=== PATIENT | male | born 1960 | race Caucasian/White ===

== ENCOUNTER → 2018-03-21 | Outpatient (CLI) | payer MEDICARE, OTHER | END | disposition home or self-care (01) | LOC: LABWHC1 15:53 | PROVIDERS: ATTEND Psychiatry & Neurology Neurology | DX: G31.84 Mild cognitive impairment of uncertain or unknown etiology (principal) | CPT/HCPCS: 36415; 82607; 84443; 84481 ==

== ENCOUNTER 2018-06-01 15:59 | Inpatient (IN) | payer MEDICARE, MEDICAID ==
--- NOTE | 2018-06-01 16:26 | ED ---
General Adult HPI - General Chief complaint: Psychiatric Symptoms Stated complaint: mental health Time Seen by Provider: 06/01/18 16:13 Source: patient, RN notes reviewed Mode of arrival: ambulatory Limitations: no limitations - History of Present Illness Initial comments: Chief complaint history of present illness this is a 58-year-old male sent here to emergency room for evaluation by his counselor. The patient has been having suicidal thoughts. Denies any specific plan. Patient denies ever tried suicide in the past. The patient reports he is depressed because he has nothing juice at home watching TV denies having any hobbies. Denies drugs. - Related Data Home Medications Medication Instructions Recorded Confirmed DULoxetine HCL [Cymbalta] 60 mg PO DAILY@1000 09/22/15 06/01/18 Ibuprofen [Motrin] 200 - 400 mg PO Q6HR PRN 09/22/15 06/01/18 Simvastatin [Zocor] 40 mg PO PC-SUPPER 09/22/15 06/01/18 cloZAPine [Clozaril] 25 mg PO HS 09/22/15 06/01/18 cloZAPine [Clozaril] 200 mg PO HS 09/22/15 06/01/18 Gabapentin [Neurontin] 600 mg PO TID 06/01/18 06/01/18 HYDROcodone/APAP 5-325MG [[place] 1 tab PO Q6HR PRN 06/01/18 06/01/18 5-325] clonazePAM [KlonoPIN] 1 mg PO BID PRN 06/01/18 06/01/18 Previous Rx's Medication Instructions Recorded metFORMIN HCL [Glucophage] 500 mg PO BID-W/MEALS 15 Days tab 12/02/14 Allergies Allergy/AdvReac Type Severity Reaction Status Date / Time No Known Allergies Allergy Verified 06/01/18 17:10 Review of Systems ROS Statement: Those systems with pertinent positive or pertinent negative responses have been documented in the HPI. Review of systems. Patient denies any headache no visual acuity changes. Denies chest pain palpitations shortness of breath no GI/ problems denies being dizzy. Denies any change in appetite. Psychologically the patient reports depressed and having suicidal thoughts but no specific plan. Patient is under medication by his psychiatrist. The patient's past medical problems significant GERD, hyperlipidemia, non- insulin diabetes mellitus and an old chart a diagnosis of schizophrenia. The patient's surgeries include tonsillectomy. Family history father had prostate cancer. Patient denies ALLERGIES. He smokes and is decreasing the number cigarettes he is smoking monthly. Takes alcohol rarely socially. Denies alcohol abuse. Denies any drug abuse. ROS Other: All systems not noted in ROS Statement are negative. Past Medical History Past Medical History: GERD/Reflux, Hyperlipidemia History of Any Multi-Drug Resistant Organisms: None Reported Past Surgical History: Tonsillectomy Past Anesthesia/Blood Transfusion Reactions: No Reported Reaction Past Psychological History: Anxiety, Depression, Panic Disorder, Schizoaffective Disorder, Schizophrenia Smoking Status: Current every day smoker Past Alcohol Use History: Occasional Past Drug Use History: None Reported - Past Family History Mother Family Medical History: Hypertension Father Family Medical History: Cancer Additional Family Medical History / Comment(s): PROSTATE CA, HEART VALVE REPLACEMENT General Exam - General Exam Comments Initial Comments: General: The patient is awake and alert, in no distress, and does not appear acutely ill. Sent here for evaluation because of thoughts of suicide and increased depression of late. The patient's vital signs shows temperature 98.7 pulse 104 respiratory rate 18 pulse ox 97% room air blood pressure 126/84 Eye: Pupils are equal, round and reactive to light, extra-ocular movements are intact ; there is normal conjunctiva bilaterally. No signs of icterus. Ears, nose, mouth and throat: There are moist mucous membranes and no oral lesions. Neck: The neck is supple, there is no tenderness, no anterior cervical lymphadenopathy , thyroid not enlarged. Cardiovascular: There is a regular rate and rhythm. No murmur, rub or gallop is appreciated. Respiratory: Lungs are clear to auscultation, respirations are non-labored, breath sounds are equal. No wheezes, stridor, rales, or rhonchi. Gastrointestinal: Soft, non-distended, non-tender abdomen without masses or organomegaly noted. There is no rebound or guarding present. No CVA tenderness. Bowel sounds are unremarkable. Back: There is no tenderness to palpation in the midline. There is no obvious deformity. No rashes noted. Musculoskeletal: Normal ROM, no tenderness, There is no pedal edema. There is no calf tenderness or swelling. Sensation intact. Pulses equal bilaterally 2+. Neurological: CN II-XII intact, There are no obvious motor or sensory deficits. Coordination appears grossly intact. Speech is normal. No focal or lateralizing findings. Patient reports on occasion he stumbles. Denies headache or any other palpitations. Skin: Skin is warm and dry and no rashes or lesions are noted. Psychiatric: Cooperative, states she's having thoughts of suicide, complains of being depressed. Past history of schizophrenia. Is on medications. Sent here by his counselor for evaluation. Limitations: no limitations Course Vital Signs 06/01/18 16:06 Temperature 98.7 F Pulse Rate 104 H Respiratory 18 Rate Blood Pressure 126/84 O2 Sat by Pulse 97 Oximetry Medical Decision Making - Medical Decision Making Medical decision making; this is a 58-year-old male sent emergency room for evaluation by his counselor for thoughts of suicide and depression. The patient's urine drug triage positive for opiates. She denies taking any opiates. Patient was evaluated by the psychiatric nurse and the patient be admitted to the psychiatric floor for further evaluation and management with a diagnosis of schizoaffective disorder. - Lab Data Lab Results 06/01/18 Range/Units 16:30 Urine Opiates Screen Detected H (NotDetected) Ur Oxycodone Screen Not Detected (NotDetected) Urine Methadone Screen Not Detected (NotDetected) Ur Propoxyphene Screen Not Detected (NotDetected) Ur Barbiturates Screen Not Detected (NotDetected) U Tricyclic Antidepress Not Detected (NotDetected) Ur Phencyclidine Scrn Not Detected (NotDetected) Ur Amphetamines Screen Not Detected (NotDetected) U Methamphetamines Scrn Not Detected (NotDetected) U Benzodiazepines Scrn Not Detected (NotDetected) Urine Cocaine Screen Not Detected (NotDetected) U Marijuana (THC) Screen Not Detected (NotDetected) Disposition Clinical Impression: Schizoaffective disorder Disposition: TRANSFER TO PSYCH HOSP/UNIT Condition: Fair Is patient prescribed a controlled substance at d/c from ED?: No
[2018-06-01 17:18] LABS: Amphetamine Screen,Urine Not Detected (NotDetected); Barbiturate Screen,Urine Not Detected (NotDetected); Benzodiazepines Screen,Urine Not Detected (NotDetected); Cocaine Screen,Urine Not Detected (NotDetected); Methadone Screen, Urine Not Detected (NotDetected); Opiate Screen,Urine Detected (NotDetected); Oxycodone Screen, Urine Not Detected (NotDetected); Phencyclidine Screen,Urine Not Detected (NotDetected); Tricyclic Antidepressant,Urine Not Detected (NotDetected); Urn Cannabinoid Scrn Not Detected (NotDetected)
[2018-06-01] MEDS ORDERED: MAG HYDROX/AL HYDROX/SIMETH 30 ML CUP PO PRN (18:28)
[2018-06-01] MEDS ORDERED: ACETAMINOPHEN TAB 325 MG TAB PO PRN (18:28)
[2018-06-01] MEDS ORDERED: MAGNESIUM HYDROXIDE 2,400 MG/10 ML CUP PO PRN (18:28)
[2018-06-01] MEDS ORDERED: HYDROcodone/APAP 5-325MG 1 EACH TAB PO PRN (18:32)
[2018-06-01] MEDS: metFORMIN 500 MG TAB PO SCH (19:14)
[2018-06-01] MEDS: ATORVASTATIN 20 MG TAB PO SCH (19:14)
[2018-06-01] MEDS: cloZAPine 25 MG TAB PO SCH (21:12)
[2018-06-01] MEDS: GABAPENTIN 300 MG CAP PO SCH (21:12)
[2018-06-01] MEDS: cloZAPine 100 MG TAB PO SCH (21:12)
[2018-06-02] MEDS: metFORMIN 500 MG TAB PO SCH ×2 (08:11→17:40)
[2018-06-02] MEDS: GABAPENTIN 300 MG CAP PO SCH ×3 (08:11→20:43)
[2018-06-02] MEDS: NICOTINE 7MG/24HR PATCH TRANSDERM SCH (08:11)
--- NOTE | 2018-06-02 08:22 | P.CONS ---
History of Present Illness - Reason for Consult Consult date: 06/02/18 Diabetes and medical management - Chief Complaint Suicidal thoughts - History of Present Illness This is a consultation on a 58-year-old white male essentially admitted for suicidal thoughts and ideations he has an underlying history of schizoaffective disorder but hasn't underlying history diabetes. He saw me 3 days ago for diabetic check and was fairly stable. However, he is fairly noncompliant doing his daily blood sugar control. He is seen in the mental health unit for medical management. Review of Systems Constitutional: Denies chills, Denies fever Eyes: denies blurred vision, denies pain Ears, nose, mouth and throat: Denies headache, Denies sore throat Cardiovascular: Denies chest pain, Denies shortness of breath Respiratory: Denies cough Gastrointestinal: Denies abdominal pain, Denies diarrhea, Denies nausea, Denies vomiting Musculoskeletal: Reports low back pain Integumentary: Denies pruritus, Denies rash Psychiatric: Reports suicidal ideation Endocrine: Denies fatigue, Denies weight change Past Medical History Past Medical History: GERD/Reflux, Hyperlipidemia History of Any Multi-Drug Resistant Organisms: None Reported Past Surgical History: Tonsillectomy Past Anesthesia/Blood Transfusion Reactions: No Reported Reaction Past Psychological History: Anxiety, Depression, Panic Disorder, Schizoaffective Disorder, Schizophrenia Smoking Status: Current every day smoker Past Alcohol Use History: Occasional Past Drug Use History: None Reported - Past Family History Mother Family Medical History: Hypertension Father Family Medical History: Cancer Additional Family Medical History / Comment(s): PROSTATE CA, HEART VALVE REPLACEMENT Medications and Allergies Home Medications Medication Instructions Recorded Confirmed Type metFORMIN HCL [Glucophage] 500 mg PO BID-W/MEALS 15 Days tab 12/02/14 06/01/18 Rx DULoxetine HCL [Cymbalta] 60 mg PO DAILY@1000 09/22/15 06/01/18 History Ibuprofen [Motrin] 200 - 400 mg PO Q6HR PRN 09/22/15 06/01/18 History Simvastatin [Zocor] 40 mg PO PC-SUPPER 09/22/15 06/01/18 History cloZAPine [Clozaril] 25 mg PO HS 09/22/15 06/01/18 History cloZAPine [Clozaril] 200 mg PO HS 09/22/15 06/01/18 History Gabapentin [Neurontin] 600 mg PO TID 06/01/18 06/01/18 History HYDROcodone/APAP 5-325MG [[place] 1 tab PO Q6HR PRN 06/01/18 06/01/18 History 5-325] clonazePAM [KlonoPIN] 1 mg PO BID PRN 06/01/18 06/01/18 History Allergies Allergy/AdvReac Type Severity Reaction Status Date / Time No Known Allergies Allergy Verified 06/01/18 17:10 Physical Exam Vitals: Vital Signs Temp Pulse Pulse Resp BP BP Pulse Ox 06/02/18 06:50 97.8 F 97 18 125/76 06/01/18 19:05 97.4 F L 103 H 16 127/78 98 06/01/18 18:16 97.7 F 99 19 118/78 97 06/01/18 16:06 98.7 F 104 H 18 126/84 97 Intake and Output 06/01/18 06/02/18 06/02/18 22:59 06:59 14:59 Other: Weight 96.6 kg - Constitutional General appearance: no acute distress - EENT Eyes: EOMI - Neck Neck: no lymphadenopathy - Respiratory Respiratory: bilateral: CTA - Cardiovascular Rhythm: regular Heart sounds: normal: S1, S2 Abnormal Heart Sounds: no S3 Gallop - Gastrointestinal General gastrointestinal: soft, no tenderness - Neurologic Neurologic: CNII-XII intact - Psychiatric Psychiatric: A&O x's 3, intact judgment & insight Results Labs: Abnormal Lab Results - Last 24 Hours (Table) 06/01/18 Range/Units 16:30 Urine Opiates Screen Detected H (NotDetected) Assessment and Plan (1) Schizoaffective disorder Current Visit: Yes Status: Acute Code(s): F25.9 - SCHIZOAFFECTIVE DISORDER, UNSPECIFIED SNOMED Code(s): 81480401 (2) Diabetes Current Visit: Yes Status: Acute Code(s): E11.9 - TYPE 2 DIABETES MELLITUS WITHOUT COMPLICATIONS SNOMED Code(s): 41576799 Plan: Reconcile medications. The patient has fairly normal blood sugar control. Check blood sugar before meals. We'll continue follow from perspective.
[2018-06-02 09:32] LABS: Basophils % (A) 0 %; Eosinophils % (A) 0 %; HCT 45.2 % (39.0-53.0); HGB 14.5 gm/dL (13.0-17.5); Lymphocytes # (A) 2.4 k/uL (1.0-4.8); Lymphocytes % (A) 24 %; MCH 28.1 pg (25.0-35.0); MCHC 32.1 g/dL (31.0-37.0); MCV 87.7 fL (80.0-100.0); Mean Platelet Volume 8.9; Monocytes # (A) 0.7 k/uL (0-1.0); Monocytes % (A) 7 %; Neutrophils # (A) 6.6 k/uL (1.3-7.7); Neutrophils % (A) 66 %; Platelet Count 173 k/uL (150-450); RBC 5.16 m/uL (4.30-5.90); RDW 13.8 % (11.5-15.5); WBC 9.9 k/uL (3.8-10.6)
[2018-06-02 09:35] LABS: ALT 36 U/L (21-72); AST 18 U/L (17-59); Albumin 4.1 g/dL (3.5-5.0); Alkaline Phosphatase 113 U/L (38-126); Anion Gap 12 mmol/L; Bilirubin, Delta 0.2 mg/dL (0.0-0.2); Bilirubin,Unconjugated 0.4 mg/dL (0.0-1.1); Blood Urea Nitrogen 10 mg/dL (9-20); Calcium 9.6 mg/dL (8.4-10.2); Carbon Dioxide 26 mmol/L (22-30); Chloride 103 mmol/L (98-107); Cholesterol 161 mg/dL (<200); Glucose 219 mg/dL (74-99); HDL Cholesterol 47 mg/dL (40-60); LDL Cholesterol,Calculated 81 mg/dL (0-99); Potassium 4.7 mmol/L (3.5-5.1); Sodium 141 mmol/L (137-145); Total Bilirubin 0.6 mg/dL (0.2-1.3); Total Protein 6.6 g/dL (6.3-8.2); Triglycerides 164 mg/dL (<150)
[2018-06-02] MEDS ORDERED: DULoxetine HCL 60 MG CAPSULE.DR PO SCH (10:00)
--- NOTE | 2018-06-02 10:52 | P.HP ---
Psychiatric H&P - . History & Physical: Allergies Allergy/AdvReac Type Severity Reaction Status Date / Time No Known Allergies Allergy Verified 06/01/18 17:10 Vital Signs Temp 97.8 F 06/02/18 06:50 Pulse 97 06/02/18 06:50 Resp 18 06/02/18 06:50 BP 125/76 06/02/18 06:50 Pulse Ox 98 06/01/18 19:05 Intake & Output 06/01/18 06/02/18 06/02/18 18:59 06:59 18:59 Weight 99.79 kg 96.6 kg Laboratory Last Values WBC 9.9 k/uL (3.8-10.6) 06/02/18 08:43 RBC 5.16 m/uL (4.30-5.90) 06/02/18 08:43 Hgb 14.5 gm/dL (13.0-17.5) 06/02/18 08:43 Hct 45.2 % (39.0-53.0) 06/02/18 08:43 MCV 87.7 fL (80.0-100.0) 06/02/18 08:43 MCH 28.1 pg (25.0-35.0) 06/02/18 08:43 MCHC 32.1 g/dL (31.0-37.0) 06/02/18 08:43 RDW 13.8 % (11.5-15.5) 06/02/18 08:43 Plt Count 173 k/uL (150-450) 06/02/18 08:43 Neutrophils % 66 % 06/02/18 08:43 Lymphocytes % 24 % 06/02/18 08:43 Monocytes % 7 % 06/02/18 08:43 Eosinophils % 0 % 06/02/18 08:43 Basophils % 0 % 06/02/18 08:43 Neutrophils # 6.6 k/uL (1.3-7.7) 06/02/18 08:43 Lymphocytes # 2.4 k/uL (1.0-4.8) 06/02/18 08:43 Monocytes # 0.7 k/uL (0-1.0) 06/02/18 08:43 Eosinophils # 0.0 k/uL (0-0.7) 06/02/18 08:43 Basophils # 0.0 k/uL (0-0.2) 06/02/18 08:43 Sodium 141 mmol/L (137-145) 06/02/18 08:43 Potassium 4.7 mmol/L (3.5-5.1) 06/02/18 08:43 Chloride 103 mmol/L (98-107) 06/02/18 08:43 Carbon Dioxide 26 mmol/L (22-30) 06/02/18 08:43 Anion Gap 12 mmol/L 06/02/18 08:43 BUN 10 mg/dL (9-20) 06/02/18 08:43 Creatinine 1.00 mg/dL (0.66-1.25) 06/02/18 08:43 Est GFR (CKD-EPI)AfAm >90 (>60 ml/min/1.73 sqM) 06/02/18 08:43 Est GFR (CKD-EPI)NonAf 84 (>60 ml/min/1.73 sqM) 06/02/18 08:43 Glucose 219 mg/dL (74-99) H 06/02/18 08:43 Calcium 9.6 mg/dL (8.4-10.2) 06/02/18 08:43 Total Bilirubin 0.6 mg/dL (0.2-1.3) 06/02/18 08:43 Conjugated Bilirubin 0.0 mg/dL (0.0-0.3) 06/02/18 08:43 Unconjugated Bilirubin 0.4 mg/dL (0.0-1.1) 06/02/18 08:43 Delta Bilirubin 0.2 mg/dL (0.0-0.2) 06/02/18 08:43 AST 18 U/L (17-59) 06/02/18 08:43 ALT 36 U/L (21-72) 06/02/18 08:43 Alkaline Phosphatase 113 U/L (38-126) 06/02/18 08:43 Total Protein 6.6 g/dL (6.3-8.2) 06/02/18 08:43 Albumin 4.1 g/dL (3.5-5.0) 06/02/18 08:43 Triglycerides 164 mg/dL (<150) H 06/02/18 08:43 Cholesterol 161 mg/dL (<200) 06/02/18 08:43 LDL Cholesterol, Calc 81 mg/dL (0-99) 06/02/18 08:43 HDL Cholesterol 47 mg/dL (40-60) 06/02/18 08:43 TSH 0.778 mIU/L (0.465-4.680) 06/02/18 08:43 Urine Opiates Screen Detected (NotDetected) H 06/01/18 16:30 Ur Oxycodone Screen Not Detected (NotDetected) 06/01/18 16:30 Urine Methadone Screen Not Detected (NotDetected) 06/01/18 16:30 Ur Propoxyphene Screen Not Detected (NotDetected) 06/01/18 16:30 Ur Barbiturates Screen Not Detected (NotDetected) 06/01/18 16:30 U Tricyclic Antidepress Not Detected (NotDetected) 06/01/18 16:30 Ur Phencyclidine Scrn Not Detected (NotDetected) 06/01/18 16:30 Ur Amphetamines Screen Not Detected (NotDetected) 06/01/18 16:30 U Methamphetamines Scrn Not Detected (NotDetected) 06/01/18 16:30 U Benzodiazepines Scrn Not Detected (NotDetected) 06/01/18 16:30 Urine Cocaine Screen Not Detected (NotDetected) 06/01/18 16:30 U Marijuana (THC) Screen Not Detected (NotDetected) 06/01/18 16:30 06/02/18 10:43 IDENTIFYING DATA: This patient is a 58-year-old single male who was admitted to the mental health unit through the emergency room for suicidal ideation. HPI: The patient was sent to the hospital from his outpatient psychiatrist's office. The patient had met with his individual therapist and psychiatrist and had indicated he was having acute suicidal ideation. Specifically he stated he was going to stab himself in the neck or cut his wrists. The patient has a known history of schizoaffective disorder and does have a history of depressive episodes. The patient identifies no clear precipitant for the suicidal ideation. He indicates he's been compliant with the psychotropic medication which has been Clozaril Klonopin Cymbalta and Neurontin. He reports that appetite sleep and energy have been stable. He is endorsing no tearfulness. He just states suddenly he was having suicidal thoughts. He indicates feeling some anxiety about going out to dinner with family which was scheduled for today. This is a weekly activity however. He is reporting no auditory or visual hallucinations. He indicates having some paranoid thoughts at times but they seem to be consistent with his baseline. He reports no homicidal ideation. There is no clear history of hypomanic or manic episodes that he provides. With his permission I was able to speak with his outpatient psychiatrist Dr. Boyce. It was determined that the patient may benefit from titrating the Cymbalta to 90 mg. PAST PSYCHIATRIC HISTORY: This would be approximately the patient's ninth psychiatric admission his last admission on this mental health unit was in 2014. He has no history of suicide attempts. In the outpatient setting he is treated with Clozaril 225 mg at bedtime Cymbalta 60 mg daily Neurontin 600 mg 3 times daily Klonopin 1 mg up to twice daily as needed. In the past he has been treated with Paxil Zoloft Zyprexa Abilify doxepin and Effexor. The patient is somewhat hesitant to have us change his psychiatric medication but is amenable to a dose titration. He has been working with Dr. Boyce for 6-7 years and his therapist Cornelius for approximately 2 years. He indicates seen his psychiatrist monthly and his therapist every 2 weeks. PMH: History of hyperlipidemia diabetes chronic pain possibly hypertension, he is treated with Zocor metformin and Mena ALLERGIES: NO KNOWN DRUG ALLERGIES MEDICATIONS: As above CHEMICAL DEPENDENCY HISTORY: He reports using alcohol only when he goes out for dinner with family and he will have 2 drinks, no use of marijuana or illicit drugs he is never been placed in residential treatment for chemical dependency reasons. FAMILY PSYCHIATRIC HISTORY: No family psychiatric history reported no suicides in the family FAMILY CHEMICAL DEPENDENCY HISTORY: He indicates his mother has been a daily drinker, his father has been abusing alcohol on the weekends, and his sister has a history of abusing opiates SOCIAL HISTORY: The patient is 58 years old he single never been he has no children he resides with his parents. He graduated high school and earned some college credits no history of service. He was born and raised in the [place] area he was raised by both parents he has 2 sisters. He endorses no history of abuse and no legal history. MENTAL STATUS EXAM: The patient is an overweight male appearing his stated age. He is dressed in his own clothing he has a disheveled appearance. He demonstrates mild psychomotor slowing affect is bland. He endorses a recent depressed mood with suicidal ideation but states those are getting better already. He indicates having some anxiety being here on the mental health unit and being around other people. He reports no homicidal ideation intent or plan. He reports no auditory or visual hallucinations. In terms of specific delusions he states he will have paranoid thoughts at times but that seems to be a chronic finding. He demonstrates no tangential thinking loose associations or flight of ideas. Intellectually he appears to be in the below average range. He demonstrates no verbal or physical aggressiveness he demonstrates no involuntary repetitive movements. He is oriented to person place and date. He is able to spell world backwards. STRENGTHS/WEAKNESSES: Strengths: Housing family support willingness to receive treatment voluntarily weaknesses: Coping skills INTELLECTUAL FUNCTIONING: Below average IMPRESSIONS: [] 1. Schizoaffective disorder depressed type II. Diabetes hyperlipidemia chronic pain rule out hypertension PLAN: The patient has been admitted to the mental health unit voluntarily for further evaluation and treatment. We reviewed his presenting symptoms and treatment options. The patient is an impaired historian overall and seems fairly ambivalent about medication management other than expressing concern about changing his medicines. After discussing his presentation and care with his outpatient psychiatrist we decided we would continue the Clozaril 225 mg at bedtime and would increase Cymbalta to 90 mg daily we will continue the Neurontin 600 mg 3 times daily and Klonopin 1 mg up to twice daily as needed. The patient has been seen by internal medicine for routine history and physical exam. Social work has met with the patient to complete a psychosocial assessment. We will involve family in treatment and discharge planning as he will allow. He is encouraged to fully participate in the milieu.
[2018-06-02] MEDS: ATORVASTATIN 20 MG TAB PO SCH (17:40)
[2018-06-02 18:07] LABS: Hemoglobin A1C 6.4 % (4.0-6.0)
[2018-06-02] MEDS: cloZAPine 25 MG TAB PO SCH (20:42)
[2018-06-02] MEDS: cloZAPine 100 MG TAB PO SCH (20:43)
[2018-06-03] MEDS: DULoxetine HCL 30 MG CAPSULE.DR PO SCH (08:41)
[2018-06-03] MEDS: NICOTINE 7MG/24HR PATCH TRANSDERM SCH (08:41)
[2018-06-03] MEDS: metFORMIN 500 MG TAB PO SCH ×2 (08:41→17:49)
[2018-06-03] MEDS: GABAPENTIN 300 MG CAP PO SCH ×3 (08:42→20:51)
--- NOTE | 2018-06-03 12:26 | P.PN ---
Progress Note - Text Progress Note Date: 06/03/18 IDENTIFYING DATA: This patient is a 58-year-old single male who was admitted to the mental health unit through the emergency room for suicidal ideation. Interval history: Chart reviewed, discussed with nursing staff and interviewed patient in my office as I come from his room where he was lying down. General appearance is casual with a flat affect. Speech language is slow and hesitant soft. Attitude and behaviors cooperative withdrawn at times and indifferent. Mood is depressed to 6 out of 10 anxiety 7 out of 10. Affect is flat and blunted constricted. Orientation is to person place and time and situation. Thought content is within normal. Risk factor he still has suicidal ideation but no active plan. Perceptions are within normal no auditory or visual hallucinations stated at this time. Thought process is concrete. Concentration tension is within normal. Recent remote memory within normal. Intelligence is below average. Judgment and insight are both considered fair in nature. We'll continue his medications and 15 minute checks for work and milieu therapeutic environment. We did discuss that team meeting on Tuesday will decide about him returning home.
[2018-06-03] MEDS: ATORVASTATIN 20 MG TAB PO SCH (17:49)
[2018-06-03] MEDS: clonazePAM 1 MG TAB PO PRN (18:37)
[2018-06-03] MEDS: cloZAPine 100 MG TAB PO SCH (20:51)
[2018-06-03] MEDS: cloZAPine 25 MG TAB PO SCH (20:52)
[2018-06-04] MEDS: GABAPENTIN 300 MG CAP PO SCH ×3 (08:07→21:31)
[2018-06-04] MEDS: metFORMIN 500 MG TAB PO SCH ×2 (08:07→17:11)
[2018-06-04] MEDS: NICOTINE 7MG/24HR PATCH TRANSDERM SCH (08:07)
[2018-06-04] MEDS: DULoxetine HCL 30 MG CAPSULE.DR PO SCH (08:07)
--- NOTE | 2018-06-04 12:51 | P.PN ---
Progress Note - Text Progress Note Date: 06/04/18 DENTIFYING DATA: This patient is a 58-year-old single male who was admitted to the mental health unit through the emergency room for suicidal ideation. Interval history: Chart reviewed, discussed with nursing staff and interviewed patient. Mental status examination reveals a casually dressed 58-year-old male who appears older than stated age. Speech language as slow monotone and soft in nature. Attitude and behavior is cooperative. Mood is less depressed and less anxious. His affect is flat. Orientation to time person place and situation are well within normal. Thought content within normal limits risk factors denies suicidal or homicidal ideation. Perceptions within normal. Thought process is goal oriented. Concentration and tension within normal. Recent memory within normal remote memory within normal his intelligence is below average. His judgment and insight are good. We'll continue his medications and 15 minute checks for work and milieu therapeutic environment. We did discuss that team meeting on Tuesday will decide about him returning home. No adjustments in medications were made today.
[2018-06-04] MEDS: ATORVASTATIN 20 MG TAB PO SCH (17:11)
[2018-06-04 21:31] VITALS: RESP 16
[2018-06-04] MEDS: cloZAPine 25 MG TAB PO SCH (21:31)
[2018-06-04] MEDS: cloZAPine 100 MG TAB PO SCH (21:31)
[2018-06-05 06:29] LABS: Clozapine (Clozaril) 557 ng/mL (200-700); Norclozapine 297 ng/mL (200-700)
[2018-06-05 06:37] VITALS: BP 129/73; PULSE 92; TEMP 98.4
[2018-06-05] MEDS: metFORMIN 500 MG TAB PO SCH (09:09)
[2018-06-05] MEDS: DULoxetine HCL 30 MG CAPSULE.DR PO SCH (09:09)
[2018-06-05] MEDS: GABAPENTIN 300 MG CAP PO SCH (09:09)
[2018-06-05] MEDS: NICOTINE 7MG/24HR PATCH TRANSDERM SCH (09:10)
--- NOTE | 2018-06-05 11:09 | P.DS ---
Providers Date of admission: 06/01/18 17:41 Expected date of discharge: 06/05/18 Attending physician: J Carlos Moss Consults: 06/01/18 18:28 Consult Physician Routine Consulting Provider: Jeff Moon Consult Reason/Comments: H & P and medical care Do you want consulting provider notified?: Yes Primary care physician: Jeff Moon - Discharge Diagnosis(es) (1) Schizoaffective disorder Current Visit: Yes Status: Acute Priority: High Hospital Course: Brief summary of admission note: This patient is a 58-year-old single male who was admitted to the mental health unit through the emergency room for suicidal ideation. The patient was sent to the hospital from his outpatient psychiatrist's office after the patient made statements that he was going to cut himself at his wrists or stab himself in the neck. The patient is known to have a diagnosis of schizoaffective disorder with history of depressive episodes. For full details please refer to my psychiatric evaluation dated . Summary of hospital course: The patient was admitted to the mental health unit voluntarily. We reviewed his presenting symptoms and treatment options. We continued his Clozaril as written as well as his Klonopin. after having a phone conversation with Dr. Boyce the patient's outpatient psychiatrist we decided to titrate the Cymbalta to 90 mg daily. Soon after the patient was admitted to the mental health unit he indicated he was no longer having suicidal ideation. He felt safe in the milieu. He indicates that his family has visited over the weekend and that went well. Staff report that the patient' s been cooperative and has demonstrated no inappropriate behavior. The patient was seen by internal medicine for routine history and physical exam. Mental status exam: The patient is an alert male appearing his stated age. He is pleasant and cooperative. He reports his mood is good he denies having any suicidal or homicidal ideation intent or plan. Affect is appropriately expressive. He is reporting no auditory or visual hallucinations he is endorsing no current specific delusions. As he seated in the chair he demonstrates no obvious evidence of psychosis. Thought process is linear he demonstrates no tangential thinking loose associations or flight of ideas. He is easily directed in the session. He demonstrates no verbal or physical aggressiveness he demonstrates no involuntary repetitive movements. He is oriented to person place and date. He spontaneously describes future oriented thinking and we discussed coping skill strategies he can employ back home. Impressions 1. Schizoaffective disorder depressed type II. Diabetes, hyperlipidemia, chronic pain, rule out hypertension Plan: The patient will be discharged from the mental health unit today to return home with his parents. He will continue on Clozaril 225 mg at bedtime, Klonopin 1 mg twice daily, Neurontin 600 mg 3 times daily and the Cymbalta is 90 mg daily. He will follow up with Dr. Boyce and [facility] for outpatient mental health services. log pond worker will conduct a support meeting involving his parents prior to discharge. He will follow up with his primary care physician as needed. At this time there is no imminent safety risk he is appropriate for transition back to outpatient care. He is instructed to return to the hospital for any acute safety concerns. Patient Condition at Discharge: Stable Plan - Discharge Summary New Discharge Prescriptions: New DULoxetine HCL [Cymbalta] 90 mg PO DAILY #90 capsule. Nicotine 7Mg/24Hr Patch [Habitrol] 1 patch TRANSDERM DAILY #12 patch Continue metFORMIN HCL [Glucophage] 500 mg PO BID-W/MEALS 15 Days tab Simvastatin [Zocor] 40 mg PO PC-SUPPER cloZAPine [Clozaril] 25 mg PO HS cloZAPine [Clozaril] 200 mg PO HS Ibuprofen [Motrin] 200 - 400 mg PO Q6HR PRN PRN Reason: Pain Gabapentin [Neurontin] 600 mg PO TID clonazePAM [KlonoPIN] 1 mg PO BID PRN PRN Reason: Anxiety HYDROcodone/APAP 5-325MG [[place] 5-325] 1 tab PO Q6HR PRN PRN Reason: Pain Discontinued DULoxetine HCL [Cymbalta] 60 mg PO DAILY@1000 Discharge Medication List metFORMIN HCL [Glucophage] 500 mg PO BID-W/MEALS 15 Days tab 12/02/14 [Rx] Ibuprofen [Motrin] 200 - 400 mg PO Q6HR PRN 09/22/15 [History] Simvastatin [Zocor] 40 mg PO PC-SUPPER 09/22/15 [History] cloZAPine [Clozaril] 25 mg PO HS 09/22/15 [History] cloZAPine [Clozaril] 200 mg PO HS 09/22/15 [History] Gabapentin [Neurontin] 600 mg PO TID 06/01/18 [History] HYDROcodone/APAP 5-325MG [[place] 5-325] 1 tab PO Q6HR PRN 06/01/18 [History] clonazePAM [KlonoPIN] 1 mg PO BID PRN 06/01/18 [History] DULoxetine HCL [Cymbalta] 90 mg PO DAILY #90 capsule. 06/05/18 [Rx] Nicotine 7Mg/24Hr Patch [Habitrol] 1 patch TRANSDERM DAILY #12 patch 06/05/18 [ Rx] Follow up Appointment(s)/Referral(s): Jeff Moon MD [Primary Care Provider] - 1-2 days
[2018-06-05] MEDS: clonazePAM 1 MG TAB PO PRN (14:07)
== END 2018-06-05 14:50 | disposition home or self-care (01) | DRG 885 ==
LOC: EC 15:59 → 3MHU 17:41
PROVIDERS: ADMIT Psychiatry & Neurology Psychiatry; ATTEND Psychiatry & Neurology Psychiatry
DX: F25.1 Schizoaffective disorder, depressive type (principal); R45.851 Suicidal ideations; E11.9 Type 2 diabetes mellitus without complications; E78.5 Hyperlipidemia, unspecified; F17.200 Nicotine dependence, unspecified, uncomplicated; F41.0 Panic disorder [episodic paroxysmal anxiety]; G89.29 Other chronic pain; K21.9 Gastro-esophageal reflux disease without esophagitis; I10 Essential (primary) hypertension; Z91.19 Patient's noncompliance with other medical treatment and regimen; Z79.84 Long term (current) use of oral hypoglycemic drugs; Z79.899 Other long term (current) drug therapy; Z80.42 Family history of malignant neoplasm of prostate; Z82.49 Family history of ischemic heart disease and other diseases of the circulatory system
CPT/HCPCS: 80053; 80061; 80159; 80306; 82075; 82248; 83036; 84443; 85025; 99285

== ENCOUNTER 2019-09-10 16:03 | Inpatient (IN) | payer MEDICARE, MEDICAID ==
--- NOTE | 2019-09-10 18:08 | ED ---
General Adult HPI - General Chief complaint: Psychiatric Symptoms Stated complaint: mental/suicidal issues Time Seen by Provider: 09/10/19 16:32 Source: patient, RN notes reviewed Mode of arrival: ambulatory Limitations: no limitations - History of Present Illness Initial comments: 59-year-old male with a past medical history of depression, anxiety, panic disorder, schizoaffective disorder, schizophrenia presents to the emergency department for suicidal thoughts. Patient had seen his counselor today and that they wanted him to be evaluated the ER as they were concerned about suicidal thoughts. Patient states he does have suicidal thoughts today. States they have been on and off for years. Patient admits to plan of cutting his wrists. Patient states he is taking all his psychiatric medications. Patient has received inpatient management and treatment before. He denies any thoughts of harming anyone else or homicidal thoughts.Patient has no other complaints at this time including shortness of breath, chest pain, abdominal pain, nausea or vomiting, headache, or visual changes. - Related Data Home Medications Medication Instructions Recorded Confirmed Simvastatin [Zocor] 40 mg PO DAILY@1600 09/22/15 09/10/19 cloZAPine [Clozaril] 25 mg PO HS@2300 09/22/15 09/10/19 Gabapentin [Neurontin] 600 mg PO TID 06/01/18 09/10/19 HYDROcodone/APAP 5-325MG [[place] 1 tab PO Q6HR PRN 06/01/18 09/10/19 5-325] clonazePAM [KlonoPIN] 1 mg PO BID PRN 06/01/18 09/10/19 DULoxetine HCL [Cymbalta] 60 mg PO BID 09/10/19 09/10/19 cloZAPine [Clozaril] 200 mg PO HS@2300 09/10/19 09/10/19 Previous Rx's Medication Instructions Recorded metFORMIN HCL [Glucophage] 500 mg PO BID-W/MEALS 15 Days tab 12/02/14 Allergies Allergy/AdvReac Type Severity Reaction Status Date / Time No Known Allergies Allergy Verified 09/10/19 21:37 Review of Systems ROS Statement: Those systems with pertinent positive or pertinent negative responses have been documented in the HPI. ROS Other: All systems not noted in ROS Statement are negative. Past Medical History Past Medical History: GERD/Reflux, Hyperlipidemia History of Any Multi-Drug Resistant Organisms: None Reported Past Surgical History: Tonsillectomy Past Anesthesia/Blood Transfusion Reactions: No Reported Reaction Past Psychological History: Anxiety, Depression, Panic Disorder, Schizoaffective Disorder, Schizophrenia Smoking Status: Current every day smoker Past Alcohol Use History: Occasional Past Drug Use History: None Reported - Past Family History Mother Family Medical History: Hypertension Father Family Medical History: Cancer Additional Family Medical History / Comment(s): PROSTATE CA, HEART VALVE REPLACEMENT General Exam Limitations: no limitations General appearance: alert, in no apparent distress Head exam: Present: atraumatic, normocephalic, normal inspection Eye exam: Present: normal appearance, PERRL, EOMI. Absent: scleral icterus, conjunctival injection, periorbital swelling ENT exam: Present: normal exam, mucous membranes moist Neck exam: Present: normal inspection, full ROM. Absent: tenderness, meningismus, lymphadenopathy Respiratory exam: Present: normal lung sounds bilaterally. Absent: respiratory distress, wheezes, rales, rhonchi, stridor Cardiovascular Exam: Present: regular rate, normal rhythm, normal heart sounds. Absent: systolic murmur, diastolic murmur, rubs, gallop, clicks Psychiatric exam: Present: flat affect Course Vital Signs 09/10/19 09/10/19 16:06 19:03 Temperature 98.6 F 98.9 F Pulse Rate 105 H 98 Respiratory 18 18 Rate Blood Pressure 122/75 138/83 O2 Sat by Pulse 97 96 Oximetry Medical Decision Making - Medical Decision Making Patient evaluated by EPS, recommending inpatient treatment. Patient did sign himself in. Disposition Clinical Impression: Suicidal thoughts Disposition: TRANSFER TO PSYCH HOSP/UNIT Condition: Fair Is patient prescribed a controlled substance at d/c from ED?: No Time of Disposition: 00:39
[2019-09-10] MEDS ORDERED: ACETAMINOPHEN TAB 325 MG TAB PO PRN (19:46)
[2019-09-10] MEDS ORDERED: MAG HYDROX/AL HYDROX/SIMETH 30 ML CUP PO PRN (19:46)
[2019-09-10] MEDS ORDERED: MAGNESIUM HYDROXIDE 2,400 MG/10 ML CUP PO PRN (19:46)
[2019-09-10] MEDS ORDERED: ZIPRASIDONE 20 MG VIAL IM PRN (19:46)
[2019-09-10 19:48] LABS: Amphetamine Screen,Urine Not Detected (NotDetected); Barbiturate Screen,Urine Not Detected (NotDetected); Benzodiazepines Screen,Urine Not Detected (NotDetected); Cocaine Screen,Urine Not Detected (NotDetected); Methadone Screen, Urine Not Detected (NotDetected); Opiate Screen,Urine Detected (NotDetected); Oxycodone Screen, Urine Not Detected (NotDetected); Phencyclidine Screen,Urine Not Detected (NotDetected); Tricyclic Antidepressant,Urine Not Detected (NotDetected); Urn Cannabinoid Scrn Not Detected (NotDetected)
[2019-09-10] MEDS: cloZAPine 100 MG TAB PO SCH (20:51)
[2019-09-10] MEDS: GABAPENTIN 300 MG CAP PO SCH (20:51)
[2019-09-10] MEDS ORDERED: cloZAPine 25 MG TAB PO SCH (21:00)
[2019-09-11] MEDS: NICOTINE 7MG/24HR PATCH TRANSDERM SCH (08:21)
[2019-09-11] MEDS: DULoxetine HCL 30 MG CAPSULE.DR PO SCH (08:21)
[2019-09-11] MEDS: metFORMIN 500 MG TAB PO SCH ×2 (08:21→16:36)
[2019-09-11] MEDS: GABAPENTIN 300 MG CAP PO SCH ×3 (08:22→20:50)
[2019-09-11 08:23] LABS: Basophils % (A) 1 %; Eosinophils % (A) 0 %; HCT 42.7 % (39.0-53.0); HGB 13.7 gm/dL (13.0-17.5); Lymphocytes # (A) 2.6 k/uL (1.0-4.8); Lymphocytes % (A) 29 %; MCH 28.2 pg (25.0-35.0); MCHC 32.1 g/dL (31.0-37.0); MCV 87.7 fL (80.0-100.0); Mean Platelet Volume 9.1; Monocytes # (A) 0.6 k/uL (0-1.0); Monocytes % (A) 6 %; Neutrophils # (A) 5.6 k/uL (1.3-7.7); Neutrophils % (A) 63 %; Platelet Count 193 k/uL (150-450); RBC 4.86 m/uL (4.30-5.90); RDW 13.7 % (11.5-15.5); WBC 8.9 k/uL (3.8-10.6)
[2019-09-11 08:28] LABS: Glucose,Whole Blood 176 mg/dL (75-99)
[2019-09-11 08:38] LABS: ALT 25 U/L (4-49); AST 21 U/L (17-59); African American GFR (CKD) >90 (>60 ml/min/1.73 sqM); Albumin 3.8 g/dL (3.5-5.0); Alkaline Phosphatase 98 U/L (38-126); Anion Gap 7 mmol/L; Blood Urea Nitrogen 11 mg/dL (9-20); Calcium 9.1 mg/dL (8.4-10.2); Carbon Dioxide 27 mmol/L (22-30); Chloride 106 mmol/L (98-107); Cholesterol 182 mg/dL (<200); Glucose 120 mg/dL (74-99); HDL Cholesterol 55 mg/dL (40-60); LDL Cholesterol,Calculated 94 mg/dL (0-99); Non-African American GFR(CKD) >90 (>60 ml/min/1.73 sqM); Potassium 4.4 mmol/L (3.5-5.1); Sodium 140 mmol/L (137-145); Total Bilirubin 0.5 mg/dL (0.2-1.3); Total Protein 6.4 g/dL (6.3-8.2); Triglycerides 167 mg/dL (<150)
--- NOTE | 2019-09-11 11:56 | P.HP ---
Psychiatric H&P - . H&P Date: 09/11/19 History & Physical: Allergies Allergy/AdvReac Type Severity Reaction Status Date / Time No Known Allergies Allergy Verified 09/10/19 21:37 Vital Signs Temp 98.6 F 09/11/19 07:00 Pulse 82 09/11/19 07:00 Resp 17 09/11/19 07:00 BP 128/74 09/11/19 07:00 Pulse Ox 99 09/11/19 07:00 Intake & Output 09/10/19 09/11/19 09/11/19 18:59 06:59 18:59 Weight 99.79 kg 95.254 kg Laboratory Last Values WBC 8.9 k/uL (3.8-10.6) 09/11/19 07:49 RBC 4.86 m/uL (4.30-5.90) 09/11/19 07:49 Hgb 13.7 gm/dL (13.0-17.5) 09/11/19 07:49 Hct 42.7 % (39.0-53.0) 09/11/19 07:49 MCV 87.7 fL (80.0-100.0) 09/11/19 07:49 MCH 28.2 pg (25.0-35.0) 09/11/19 07:49 MCHC 32.1 g/dL (31.0-37.0) 09/11/19 07:49 RDW 13.7 % (11.5-15.5) 09/11/19 07:49 Plt Count 193 k/uL (150-450) 09/11/19 07:49 Neutrophils % 63 % 09/11/19 07:49 Lymphocytes % 29 % 09/11/19 07:49 Monocytes % 6 % 09/11/19 07:49 Eosinophils % 0 % 09/11/19 07:49 Basophils % 1 % 09/11/19 07:49 Neutrophils # 5.6 k/uL (1.3-7.7) 09/11/19 07:49 Lymphocytes # 2.6 k/uL (1.0-4.8) 09/11/19 07:49 Monocytes # 0.6 k/uL (0-1.0) 09/11/19 07:49 Eosinophils # 0.0 k/uL (0-0.7) 09/11/19 07:49 Basophils # 0.0 k/uL (0-0.2) 09/11/19 07:49 Sodium 140 mmol/L (137-145) 09/11/19 07:49 Potassium 4.4 mmol/L (3.5-5.1) 09/11/19 07:49 Chloride 106 mmol/L (98-107) 09/11/19 07:49 Carbon Dioxide 27 mmol/L (22-30) 09/11/19 07:49 Anion Gap 7 mmol/L 09/11/19 07:49 BUN 11 mg/dL (9-20) 09/11/19 07:49 Creatinine 0.78 mg/dL (0.66-1.25) 09/11/19 07:49 Est GFR (CKD-EPI)AfAm >90 (>60 ml/min/1.73 sqM) 09/11/19 07:49 Est GFR (CKD-EPI)NonAf >90 (>60 ml/min/1.73 sqM) 09/11/19 07:49 Glucose 120 mg/dL (74-99) H 09/11/19 07:49 POC Glucose (mg/dL) 176 mg/dL (75-99) H 09/11/19 08:25 POC Glu Maintenance Equipment Operator ID Xuan Chamberlain 09/11/19 08:25 Calcium 9.1 mg/dL (8.4-10.2) 09/11/19 07:49 Total Bilirubin 0.5 mg/dL (0.2-1.3) 09/11/19 07:49 AST 21 U/L (17-59) 09/11/19 07:49 ALT 25 U/L (4-49) 09/11/19 07:49 Alkaline Phosphatase 98 U/L (38-126) 09/11/19 07:49 Total Protein 6.4 g/dL (6.3-8.2) 09/11/19 07:49 Albumin 3.8 g/dL (3.5-5.0) 09/11/19 07:49 Triglycerides 167 mg/dL (<150) H 09/11/19 07:49 Cholesterol 182 mg/dL (<200) 09/11/19 07:49 LDL Cholesterol, Calc 94 mg/dL (0-99) 09/11/19 07:49 HDL Cholesterol 55 mg/dL (40-60) 09/11/19 07:49 TSH 0.888 mIU/L (0.465-4.680) 09/11/19 07:49 Urine Opiates Screen Detected (NotDetected) H 09/10/19 19:20 Ur Oxycodone Screen Not Detected (NotDetected) 09/10/19 19:20 Urine Methadone Screen Not Detected (NotDetected) 09/10/19 19:20 Ur Propoxyphene Screen Not Detected (NotDetected) 09/10/19 19:20 Ur Barbiturates Screen Not Detected (NotDetected) 09/10/19 19:20 U Tricyclic Antidepress Not Detected (NotDetected) 09/10/19 19:20 Ur Phencyclidine Scrn Not Detected (NotDetected) 09/10/19 19:20 Ur Amphetamines Screen Not Detected (NotDetected) 09/10/19 19:20 U Methamphetamines Scrn Not Detected (NotDetected) 09/10/19 19:20 U Benzodiazepines Scrn Not Detected (NotDetected) 09/10/19 19:20 Urine Cocaine Screen Not Detected (NotDetected) 09/10/19 19:20 U Marijuana (THC) Screen Not Detected (NotDetected) 09/10/19 19:20 09/11/19 10:39 IDENTIFYING DATA: Patient is a 59-year-old male with history of chronic schizoaffective disorder who currently lives with his mother and father in a house has no kids is single and collects SSI. HPI: Patient presented to the hospital yesterday with suicidal thoughts after seeing his counselor who recommended him coming into the ER for evaluation. Patient according to the ER has been dealing with suicidal thoughts for several years. Patient apparently reported a plan to cut his wrists and admitted to being compliant with his medications at home. Patient was seen on the unit today taking part in group and was directable and agreeable to speak to development writer in the office. Patient was tending to cooperate and was logical and concrete. He states that he's been having a "hard time" and had difficulties with his concentration at home. He states that he's been having suicidal thoughts which were fleeting and also dealing with depression. He states that his suicidal thoughts and been going on since the age of 14 and did not mention any new stressors or triggers. He states that he has been compliant with his medications. He also spoke about his neuropathy in his feet and claims that now he gets [place] and Neurontin for it. He claims that things at home are "the same" and spoke about his parents drinking on the weekend. He states that at th e moment she is continuing to have suicidal ideations however fleeting and denies any plan or intent. He states that his sleep is poor denies any guilt. Patient denies any homicidal ideations intent or plan. At this time patient denies any auditory or visual hallucinations. Patient denies any flight of ideas racing thoughts and increased in goal directed behavior. Patient admits to using regrets daily and alcohol occasionally and denies any other recreational drug use. PAST PSYCHIATRIC HISTORY: Patient states that he has a history of schizoaffective disorder. Patient is on Clozaril 225 mg daily at bedtime and Klonopin 1 mg twice a day Neurontin 600 mg 3 times a day and Cymbalta 90 mg daily. She and has had several psychiatric hospitalizations the past and his last hospitalization was in May 2018. She follows up with Dr. Boyce as an outpatient. PMH: GERD and hyperlipidemia ALLERGIES: as per EMR CHEMICAL DEPENDENCY HISTORY: as per HPI FAMILY PSYCHIATRIC/SUBSTANCE USE HISTORY: States that his grandmother has schizophrenia SOCIAL HISTORY: Patient was born and raised in [facility] and claims a completed high school and states that he went to [employer] for college however did not graduate. She denies any legal problems. He currently lives with his mother and father in a house has no kids is single and collects SSI. MENTAL STATUS EXAM: General Appearance: Patient appears to be stated age is tall, well-built, alert, directable, and attempts to cooperate. Patient appears to have poor hygiene and grooming. Wearing hospital gown. Behavior: Patient is seated without any agitated behavior. Attempts to cooperate. Speech: Patient's speech is fluent and nonpressured. Mood/Affect: Patient reports their mood is depressed, affect is congruent and constricted. Suicidality/Homicidality: Patient denies having any homicidal ideation intent or plan. Admits to fleeting thoughts of suicide however no intent or plan. Perceptions: Patient denies any visual hallucinations and denies any auditory hallucinations Though content/process: There is no evidence of any delusional thought content and thought process is linear and goal-directed. Tiff. Memory and concentration: AOX3, grossly intact for the purposes of this session. Can spell "WORLD" backwards Judgment and insight: poor STRENGTHS/WEAKNESSES: strength is that patient is resilient. Weakness is that patient has poor judgment INTELLECT: average IMPRESSIONS: Schizoaffective disorder unspecified Nicotine dependence PLAN: -Patient is admitted under voluntary status to MHU for stabilization of psychiatric symptoms and safety. Patient signed adult voluntary form and medication consent and is placed in patient's chart. -Medications : Will start patient on clozapine however changed to 25 mg daily +200 mg daily at bedtime for psychosis/mood stabilization. We'll continue Klonopin 1 mg twice a day when necessary for anxiety. Patient is also currently on Neurontin 600 mg 3 times a day for neuropathy. Continue with Cymbalta 90 mg daily for mood/anxiety/pain and can consider increasing this dose if needed. Added melatonin 5 mg daily at bedtime for sleep. -Geodon PRN for agitation/aggression -Patient was informed of the risks, benefits and side effects of the medication and patient verbally consented to taking the medications. Patient signed med consent form and was placed in chart. -Internal Medicine consult to perform medical evaluation and physical. -NRT - nicotine patch -SW on board for discharge planning. Encourage patient to participate in groups to work on coping skills. Likely discharge in 2-3 days. 09/11/19 11:49
[2019-09-11 12:51] LABS: Glucose,Whole Blood 126 mg/dL (75-99)
[2019-09-11] MEDS: cloZAPine 25 MG TAB PO SCH (13:23)
[2019-09-11] MEDS: clonazePAM 1 MG TAB PO PRN ×2 (13:24→22:21)
--- NOTE | 2019-09-11 15:48 | P.CONS ---
History of Present Illness - Chief Complaint Suicidal ideations - History of Present Illness This is a history of physical 59-year-old white male patient of mine who has an underlying history is scheduled for disorder anxiety depression and is admitted to the mental health unit secondary to suicidal thoughts. He has history of this over the years. He has been compliant with his medications and has received inpatient treatment in the past. He denies any homicidal thoughts. No physical complaints per se stated. He hasn't underlying history of DJD. Review of Systems Constitutional: Denies chills, Denies fever Eyes: denies blurred vision, denies pain Ears, nose, mouth and throat: Denies headache, Denies sore throat Cardiovascular: Denies chest pain, Denies shortness of breath Gastrointestinal: Denies abdominal pain, Denies diarrhea, Denies nausea, Denies vomiting Psychiatric: Reports as per HPI Endocrine: Denies fatigue, Denies weight change Past Medical History Past Medical History: GERD/Reflux, Hyperlipidemia History of Any Multi-Drug Resistant Organisms: None Reported Past Surgical History: Tonsillectomy Past Anesthesia/Blood Transfusion Reactions: No Reported Reaction Past Psychological History: Anxiety, Depression, Panic Disorder, Schizoaffective Disorder, Schizophrenia Smoking Status: Current every day smoker Past Alcohol Use History: Occasional Past Drug Use History: None Reported - Past Family History Mother Family Medical History: Hypertension Father Family Medical History: Cancer Additional Family Medical History / Comment(s): PROSTATE CA, HEART VALVE R EPLACEMENT Medications and Allergies Home Medications Medication Instructions Recorded Confirmed Type metFORMIN HCL [Glucophage] 500 mg PO BID-W/MEALS 15 Days tab 12/02/14 09/10/19 Rx Simvastatin [Zocor] 40 mg PO DAILY@1600 09/22/15 09/10/19 History cloZAPine [Clozaril] 25 mg PO HS@2300 09/22/15 09/10/19 History Gabapentin [Neurontin] 600 mg PO TID 06/01/18 09/10/19 History HYDROcodone/APAP 5-325MG [[place] 1 tab PO Q6HR PRN 06/01/18 09/10/19 History 5-325] clonazePAM [KlonoPIN] 1 mg PO BID PRN 06/01/18 09/10/19 History DULoxetine HCL [Cymbalta] 60 mg PO BID 09/10/19 09/10/19 History cloZAPine [Clozaril] 200 mg PO HS@2300 09/10/19 09/10/19 History Allergies Allergy/AdvReac Type Severity Reaction Status Date / Time No Known Allergies Allergy Verified 09/10/19 21:37 Physical Exam Vitals: Vital Signs Temp Pulse Pulse Resp BP BP Pulse Ox 09/11/19 07:00 98.6 F 82 17 128/74 99 09/10/19 23:06 98.8 F 94 16 127/69 98 09/10/19 19:03 98.9 F 98 18 138/83 96 09/10/19 16:06 98.6 F 105 H 18 122/75 97 Intake and Output 09/10/19 09/11/19 09/11/19 22:59 06:59 14:59 Other: Weight 99.79 kg 95.254 kg - Constitutional General appearance: no acute distress - Neck Neck: no lymphadenopathy - Respiratory Respiratory: bilateral: CTA - Cardiovascular Rhythm: regular Abnormal Heart Sounds: no S3 Gallop - Gastrointestinal General gastrointestinal: soft, no tenderness - Integumentary Integumentary: no cellulitis Results Labs: Abnormal Lab Results - Last 24 Hours (Table) 09/10/19 Range/Units 19:20 Urine Opiates Screen Detected H (NotDetected) Assessment and Plan (1) Suicidal thoughts Current Visit: Yes Status: Acute Code(s): R45.851 - SUICIDAL IDEATIONS SNOMED Code(s): 6295110 (2) Diabetes Current Visit: No Status: Acute Code(s): E11.9 - TYPE 2 DIABETES MELLITUS WITHOUT COMPLICATIONS SNOMED Code(s): 07384270 (3) Schizoaffective disorder Current Visit: No Status: Acute Priority: High Code(s): F25.9 - SCHIZOAFFECTIVE DISORDER, UNSPECIFIED SNOMED Code(s): 96065316 Plan: Placed on appropriate sliding scale as necessary. Accu-Chek to be ordered. Check CBC and CMP in a.m. The patient may restart hydrocodone as per psychiatric sanchez protocol Reconcile medications otherwise. See orders otherwise Time with Patient: Greater than 30
[2019-09-11 16:01] LABS: Hemoglobin A1C 6.5 % (4.0-6.0)
[2019-09-11] MEDS: ATORVASTATIN 20 MG TAB PO SCH (16:36)
[2019-09-11 17:45] LABS: Glucose,Whole Blood 123 mg/dL (75-99)
[2019-09-11 20:12] LABS: Glucose,Whole Blood 123 mg/dL (75-99)
[2019-09-11] MEDS: cloZAPine 100 MG TAB PO SCH (20:49)
[2019-09-11] MEDS: MELATONIN 5 MG TABLET PO SCH (20:49)
[2019-09-12 07:02] VITALS: RESP 16
[2019-09-12 08:02] LABS: Glucose,Whole Blood 136 mg/dL (75-99)
[2019-09-12] MEDS: DULoxetine HCL 30 MG CAPSULE.DR PO SCH (09:05)
[2019-09-12] MEDS: NICOTINE 7MG/24HR PATCH TRANSDERM SCH (09:05)
[2019-09-12] MEDS: metFORMIN 500 MG TAB PO SCH ×2 (09:05→16:43)
[2019-09-12] MEDS: cloZAPine 25 MG TAB PO SCH (09:05)
[2019-09-12] MEDS: GABAPENTIN 300 MG CAP PO SCH ×3 (09:06→21:18)
--- NOTE | 2019-09-12 11:21 | P.PN ---
Progress Note - Text Progress Note Date: 09/12/19 Interval History: Patient was seen wandering the hallways and was directable and agreeable to andrey flores with specification writer in the office. patient appeared to have a brighter affect today and states that his mood as been gradually improving. He states that "I needed to get out of the house" and claims that his depression has been getting better. He states that he is not focusing on suicidal thoughts any longer. He states that he is going to some of the groups and remains interested to go to the [employer] [facility] and interact with others on the unit. He states that he was able to sleep throughout the night. He states that he has a fair appetite. At this time patient denies any suicidal or homical ideations, intent or plan. Patient denies any auditory, visual hallucinations and denies any paranoia or delusions. Patient denies any side effects from the medications and has been compliant with meds. Mental Status Exam: General Appearance: Patient appears to be stated age is tall, well-built, alert, directable, and attempts to cooperate. Patient appears to have poor hygiene and grooming Behavior: Patient is seated without any agitated behavior. Attempts to cooperate. Speech: Patient's speech is fluent and nonpressured. Mood/Affect: Patient reports their mood is improving mildly, affect is congruent and constricted. Suicidality/Homicidality: Patient denies having any suicidal or homicidal ideation intent or plan. Perceptions: Patient denies any visual hallucinations and denies any auditory hallucinations Though content/process: There is no evidence of any delusional thought content and thought process is linear and goal-directed. [place].focused on discharge. Memory and concentration: AOX3, grossly intact for the purposes of this session. Judgment and insight: Limited, mildly improving. Assessment Schizoaffective disorder unspecified Nicotine dependence Plan: -Patient continues to meet criteria for inpatient psychiatric admission for symptom stabilization and safety. Patient has signed adult voluntary form and medication consent and was placed in patient's chart. -Medications: continue with clozapine 25 mg daily +200 mg daily at bedtime for psychosis/mood stabilization. Continue with Klonopin 1 mg 3 times a day when necessary for anxiety. Continue with Neurontin 600 mg 3 times a day for neuropathy. Continue with Cymbalta 90 mg daily for mood/anxiety/pain. Continue with melatonin 5 mg nightly for sleep. -When necessary Geodon for agitation/aggression. -NRT - nicotine patch -SW on board for discharge planning. Encouraged the patient to participate in milieu. Likely discharge back home tomorrow. We'll look into potential groups that patient can attend at [facility] as an outpatient.
[2019-09-12 12:49] LABS: Glucose,Whole Blood 131 mg/dL (75-99)
[2019-09-12 17:30] LABS: Glucose,Whole Blood 105 mg/dL (75-99)
[2019-09-12] MEDS: ATORVASTATIN 20 MG TAB PO SCH (19:57)
[2019-09-12] MEDS: MELATONIN 5 MG TABLET PO SCH (19:58)
[2019-09-12] MEDS: cloZAPine 100 MG TAB PO SCH (19:58)
[2019-09-12 20:16] LABS: Glucose,Whole Blood 154 mg/dL (75-99)
[2019-09-13 07:04] VITALS: BP 107/58; PULSE 84; TEMP 98.5
[2019-09-13 07:52] LABS: Glucose,Whole Blood 126 mg/dL (75-99)
[2019-09-13] MEDS: NICOTINE 7MG/24HR PATCH TRANSDERM SCH (08:16)
[2019-09-13] MEDS: cloZAPine 25 MG TAB PO SCH (08:16)
[2019-09-13] MEDS: DULoxetine HCL 30 MG CAPSULE.DR PO SCH (08:16)
[2019-09-13] MEDS: metFORMIN 500 MG TAB PO SCH (08:16)
[2019-09-13] MEDS: GABAPENTIN 300 MG CAP PO SCH (08:17)
--- NOTE | 2019-09-13 10:03 | P.DS ---
Providers Date of admission: 09/10/19 19:00 Expected date of discharge: 09/13/19 Attending physician: Catarino Prado MD Consults: 09/10/19 19:46 Consult Physician Routine Consulting Provider: Jeff Moon Consult Reason/Comments: H&P and medical Do you want consulting provider notified?: Yes Primary care physician: Jeff Moon - Discharge Diagnosis(es) (1) Nicotine dependence Current Visit: Yes Status: Acute Priority: Low (2) Schizoaffective disorder Current Visit: No Status: Acute Priority: High Hospital Course: Admission HPI: Patient is a 59-year-old male with history of chronic schizoaffective disorder who currently lives with his mother and father in a house has no kids is single and collects SSI. Patient presented to the hospital yesterday with suicidal thoughts after seeing his counselor who recommended him coming into the ER for evaluation. Patient according to the ER has been dealing with suicidal thoughts for several years. Patient apparently reported a plan to cut his wrists and admitted to being compliant with his medications at home. Patient was seen on the unit today taking part in group and was directable and agreeable to speak to bid writer in the office. Patient was tending to cooperate and was logical and concrete. He states that he's been having a "hard time" and had difficulties with his concentration at home. He states that he's been having suicidal thoughts which were fleeting and also dealing with depression. He states that his suicidal thoughts and been going on since the age of 14 and did not mention any new stressors or triggers. He states that he has been compliant with his medications. He also spoke about his neuropathy in his feet and claims that now he gets [place] and Neurontin for it. He claims that things at home are "the same" and spoke about his parents drinking on the weekend. He states that at the moment she is continuing to have suicidal ideations however fleeting and denies any plan or intent. He states that his sleep is poor denies any guilt. Patient denies any homicidal ideations intent or plan. At this time patient denies any auditory or visual hallucinations. Patient denies any flight of ideas racing thoughts and increased in goal directed behavior. Patient admits to using regrets daily and alcohol occasionally and denies any other recreational drug use. Hospital course: Upon admission to the unit patient was initially depressed and having suicidal thoughts. Patient was however directable and agreeable to commence treatment. Patient got along well with other patients on the unit and followed unit protocol. Patient was compliant with the medications and denied any side effects throughout hospital course. Patient was started on his home dose of clozapine 225 mg daily at bedtime for mood stabilization/psychosis, Klonopin 1 mg twice a day when necessary for anxiety, Neurontin 600 mg 3 times a day for neuropathy, Cymbalta 90 mg daily for mood/anxiety/pain, melatonin 5 mg nightly for sleep. Patient spoke of his stressors and engaged in therapy both group and individual. Patient was also seen by medical team for history and physical exam. Patient had a CBC with differential drawn on and WBCs were 8.9 and absolute neutrophil count was 5.6. Throughout the course of the hospitalization patient gradually improved with regards to mood, anxiety, psyc hosis, sleep and became future oriented with improved insight and judgment. On the day of discharge patient denied any suicidal or homicidal ideations intent or plan denied any auditory or visual hallucinations. Patient endorsed wanting to live for or his family and his friends. The patient denied any access to guns or weapons. Patient denied any paranoia and did not endorse any delusions. Patient does not have a significant history of substance abuse however was counseled on abstaining from all substances including alcohol and marijuana. Patient was also counseled on the medications and need for regular compliance and was encouraged to follow-up with their outpatient appointment for mental health and also for primary care. Prior to discharge a family meeting will be arranged by social security benefits interviewer to answer any questions and ensure safety upon discharge. Mental status exam: General Appearance: Patient appears to be tall, well-built, stated age is alert, pleasant, and cooperative. Patient is in no acute distress and has fair hygiene and grooming Behavior: Patient is calmly seated without any agitated behavior. Cooperative. Speech: Patient's speech is fluent and nonpressured. Mood/Affect: Patient reports their mood is "better", affect is congruent and euthymic. Suicidality/Homicidality: Patient denies having any suicidal or homicidal ideation intent or plan. Perceptions: Patient denies any auditory or visual hallucinations. Though content/process: There is no evidence of any delusional thought content and thought process is linear and goal-directed. [place]. Memory and concentration: AOX3, grossly intact for the purposes of this session. Can spell "WORLD" backwards correctly. Judgment and insight: Improved with guarded prognosis Impression: Schizoaffective disorder unspecified Nicotine dependence Plan: -Continue with discharge today as patient has improved and stabilized psychiatrically and is not currently an imminent threat to himself and/or others. -Continue medications: Clozapine 225 mg nightly for psychosis/mood stabilization, Klonopin 1 mg twice a day when necessary for anxiety, Neurontin 600 mg 3 times a day for neuropathy, Cymbalta 90 mg daily for mood/anxiety/pain, melatonin 5 mg nightly for sleep. -Patient was counseled on the need for medication compliance and appropriate follow-up at mental health and also primary care for medical issues. Patient verbalized understanding and agreed. -Social work to arrange for and conduct family meeting to ensure safety upon discharge and answer any questions/concerns. Social work also to arrange for patients follow up appointments with Dr. Boyce for psychiatric care along with follow up with primary care provider. Patient also follows up with his therapist rescue worker to give resources for outpatient groups in the community. -Patient to continue on with regular monitoring of WBCs and absolute neutrophil count as per protocol for clozapine treatment and will be monitored by his outpatient psychiatrist. -Patient counseled on abstaining from recreational drugs and marijuana and alcohol. Was informed/educated on the adverse effects on their physical and mental health. Patient verbally agreed and understood. -Patient was instructed to return to the hospital or seek immediate medical care if their psychiatric or medical symptoms do worsen or reoccur. Allergies Allergy/AdvReac Type Severity Reaction Status Date / Time No Known Allergies Allergy Verified 09/10/19 21:37 Laboratory Results WBC 8.9 k/uL (3.8-10.6) 09/11/19 07:49 RBC 4.86 m/uL (4.30-5.90) 09/11/19 07:49 Hgb 13.7 gm/dL (13.0-17.5) 09/11/19 07:49 Hct 42.7 % (39.0-53.0) 09/11/19 07:49 MCV 87.7 fL (80.0-100.0) 09/11/19 07:49 MCH 28.2 pg (25.0-35.0) 09/11/19 07:49 MCHC 32.1 g/dL (31.0-37.0) 09/11/19 07:49 RDW 13.7 % (11.5-15.5) 09/11/19 07:49 Plt Count 193 k/uL (150-450) 09/11/19 07:49 Neutrophils % 63 % 09/11/19 07:49 Lymphocytes % 29 % 09/11/19 07:49 Monocytes % 6 % 09/11/19 07:49 Eosinophils % 0 % 09/11/19 07:49 Basophils % 1 % 09/11/19 07:49 Neutrophils # 5.6 k/uL (1.3-7.7) 09/11/19 07:49 Lymphocytes # 2.6 k/uL (1.0-4.8) 09/11/19 07:49 Monocytes # 0.6 k/uL (0-1.0) 09/11/19 07:49 Eosinophils # 0.0 k/uL (0-0.7) 09/11/19 07:49 Basophils # 0.0 k/uL (0-0.2) 09/11/19 07:49 Sodium 140 mmol/L (137-145) 09/11/19 07:49 Potassium 4.4 mmol/L (3.5-5.1) 09/11/19 07:49 Chloride 106 mmol/L (98-107) 09/11/19 07:49 Carbon Dioxide 27 mmol/L (22-30) 09/11/19 07:49 Anion Gap 7 mmol/L 09/11/19 07:49 BUN 11 mg/dL (9-20) 09/11/19 07:49 Creatinine 0.78 mg/dL (0.66-1.25) 09/11/19 07:49 Est GFR (CKD-EPI)AfAm >90 (>60 ml/min/1.73 sqM) 09/11/19 07:49 Est GFR (CKD-EPI)NonAf >90 (>60 ml/min/1.73 sqM) 09/11/19 07:49 Glucose 120 mg/dL (74-99) H 09/11/19 07:49 POC Glucose (mg/dL) 126 mg/dL (75-99) H 09/13/19 07:51 POC Glu Family Services Specialist Mariah Thompson 09/13/19 07:[address] Glu mg/dL 140 09/11/19 07:49 Hemoglobin A1c 6.5 % (4.0-6.0) H 09/11/19 07:49 Calcium 9.1 mg/dL (8.4-10.2) 09/11/19 07:49 Total Bilirubin 0.5 mg/dL (0.2-1.3) 09/11/19 07:49 AST 21 U/L (17-59) 09/11/19 07:49 ALT 25 U/L (4-49) 09/11/19 07:49 Alkaline Phosphatase 98 U/L (38-126) 09/11/19 07:49 Total Protein 6.4 g/dL (6.3-8.2) 09/11/19 07:49 Albumin 3.8 g/dL (3.5-5.0) 09/11/19 07:49 Triglycerides 167 mg/dL (<150) H 09/11/19 07:49 Cholesterol 182 mg/dL (<200) 09/11/19 07:49 LDL Cholesterol, Calc 94 mg/dL (0-99) 09/11/19 07:49 HDL Cholesterol 55 mg/dL (40-60) 09/11/19 07:49 TSH 0.888 mIU/L (0.465-4.680) 09/11/19 07:49 Urine Opiates Screen Detected (NotDetected) H 09/10/19 19:20 Ur Oxycodone Screen Not Detected (NotDetected) 09/10/19 19:20 Urine Methadone Screen Not Detected (NotDetected) 09/10/19 19:20 Ur Propoxyphene Screen Not Detected (NotDetected) 09/10/19 19:20 Ur Barbiturates Screen Not Detected (NotDetected) 09/10/19 19:20 U Tricyclic Antidepress Not Detected (NotDetected) 09/10/19 19:20 Ur Phencyclidine Scrn Not Detected (NotDetected) 09/10/19 19:20 Ur Amphetamines Screen Not Detected (NotDetected) 09/10/19 19:20 U Methamphetamines Scrn Not Detected (NotDetected) 09/10/19 19:20 U Benzodiazepines Scrn Not Detected (NotDetected) 09/10/19 19:20 Urine Cocaine Screen Not Detected (NotDetected) 09/10/19 19:20 U Marijuana (THC) Screen Not Detected (NotDetected) 09/10/19 19:20 Vital Signs Temp 98.5 F 09/13/19 06:37 Pulse 84 09/13/19 06:37 Resp 16 09/13/19 06:37 BP 107/58 09/13/19 06:37 Pulse Ox 99 09/11/19 07:00 Patient Condition at Discharge: Stable Plan - Discharge Summary Discharge Rx Participant: No New Discharge Prescriptions: New cloZAPine [Clozaril] 225 mg PO HS 30 Days tab DULoxetine HCL [Cymbalta] 90 mg PO DAILY 30 Days capsule. Nicotine 7Mg/24Hr Patch [Habitrol] 1 patch TRANSDERM DAILY 14 Days patch Melatonin 5 mg PO HS 30 Days tablet Acetaminophen Tab [Tylenol] 650 mg PO Q4HR PRN tab PRN Reason: Pain/Discomfort Continue metFORMIN HCL [Glucophage] 500 mg PO BID-W/MEALS 15 Days tab Simvastatin [Zocor] 40 mg PO DAILY@1600 Gabapentin [Neurontin] 600 mg PO TID HYDROcodone/APAP 5-325MG [[place] 5-325] 1 tab PO Q6HR PRN PRN Reason: Pain clonazePAM [KlonoPIN] 1 mg PO BID PRN 14 Days tab PRN Reason: Anxiety Discontinued cloZAPine [Clozaril] 25 mg PO HS@2300 cloZAPine [Clozaril] 200 mg PO HS@2300 DULoxetine HCL [Cymbalta] 60 mg PO BID Discharge Medication List metFORMIN HCL [Glucophage] 500 mg PO BID-W/MEALS 15 Days tab 12/02/14 [Rx] Simvastatin [Zocor] 40 mg PO DAILY@1600 09/22/15 [History] Gabapentin [Neurontin] 600 mg PO TID 06/01/18 [History] HYDROcodone/APAP 5-325MG [[place] 5-325] 1 tab PO Q6HR PRN 06/01/18 [History] Acetaminophen Tab [Tylenol] 650 mg PO Q4HR PRN tab 09/13/19 [Rx] DULoxetine HCL [Cymbalta] 90 mg PO DAILY 30 Days capsule. 09/13/19 [Rx] Melatonin 5 mg PO HS 30 Days tablet 09/13/19 [Rx] Nicotine 7Mg/24Hr Patch [Habitrol] 1 patch TRANSDERM DAILY 14 Days patch 09/13/19 [Rx] cloZAPine [Clozaril] 225 mg PO HS 30 Days tab 09/13/19 [Rx] clonazePAM [KlonoPIN] 1 mg PO BID PRN 14 Days tab 09/13/19 [Rx] Follow up Appointment(s)/Referral(s): [facility] [place] [Other] - 1 Week (walk in intake Tuesday- Tuesday 08:30-10:30am 1 hour meeting with therapist then set up with med management and ) Jeff Moon MD [Primary Care Provider] - 1-2 days Activity/Diet/Wound Care/Special Instructions: Activity and diet as tolerated. Avoid the use of street drugs and alcohol. Take all medications as prescribed. When you are in need of refills on your medications please contact your medical provider and/or outpatient psychiatrist to have this done. Please go to scheduled outpatient appointment for aftercare treatment. If symptoms return or become worse, call the crisis line at and/or go to the nearest emergency room for evaluation. Discharge Disposition: HOME SELF-CARE
[2019-09-13 12:34] LABS: Glucose,Whole Blood 142 mg/dL (75-99)
== END 2019-09-13 13:23 | disposition home or self-care (01) | DRG 885 ==
LOC: EC 16:03 → 3MHU 19:00
PROVIDERS: ADMIT Psychiatry & Neurology Psychiatry; ATTEND Psychiatry & Neurology Psychiatry
DX: F25.9 Schizoaffective disorder, unspecified (principal); R45.851 Suicidal ideations; E11.9 Type 2 diabetes mellitus without complications; E78.5 Hyperlipidemia, unspecified; F17.210 Nicotine dependence, cigarettes, uncomplicated; F41.0 Panic disorder [episodic paroxysmal anxiety]; E11.42 Type 2 diabetes mellitus with diabetic polyneuropathy; Z79.84 Long term (current) use of oral hypoglycemic drugs; Z79.899 Other long term (current) drug therapy; Z80.42 Family history of malignant neoplasm of prostate; Z81.8 Family history of other mental and behavioral disorders; Z82.49 Family history of ischemic heart disease and other diseases of the circulatory system
CPT/HCPCS: 80053; 80061; 80306; 82075; 83036; 84443; 85025; 99285

== ENCOUNTER → 2021-02-03 | Outpatient (CLI) | payer MEDICARE, OTHER ==
[2021-02-03 20:40] LABS: Chol/HDL Ratio 4.78 Ratio; HDL Cholesterol 46.2 mg/dL (40.00-60.00); T4, Free (Free Thyroxine) 1.36 ng/dL (0.800-1.800); VLDL Calculation 56.8 mg/dL (5.00-40.00)
[2021-02-04 07:40] LABS: Clozapine (Clozaril) 418 ng/mL (200-700); Norclozapine 333 ng/mL (200-700)
== END | disposition home or self-care (01) ==
LOC: LABWHC1 12:32
PROVIDERS: ATTEND Psychiatry & Neurology Psychiatry
DX: Z79.899 Other long term (current) drug therapy (principal)
CPT/HCPCS: 36415; 80061; 80159; 82947; 83036; 84439; 84443

== ENCOUNTER → 2021-09-09 | Outpatient (CLI) | payer MEDICARE, OTHER ==
[2021-09-09 22:30] LABS: Basophils # (A) 0.06 X 10*3/uL (0.00-0.10); Basophils % (A) 0.7 %; Eosinophils # (A) 0.07 X 10*3/uL (0.04-0.35); Eosinophils % (A) 0.8 %; HCT 42.2 % (39.6-50.0); HGB 13.2 g/dL (13.0-17.0); Immature Grans, Automated 1.2 %; Lymphocytes # (A) 2.77 X 10*3/uL (0.90-5.00); Lymphocytes % (A) 33.5 %; MCH 27.4 pg (27.0-32.0); MCHC 31.3 g/dL (32.0-37.0); MCV 87.7 fL (80.0-97.0); Mean Platelet Volume 12.3 fL (9.5-12.2); Monocytes # (A) 0.69 X 10*3/uL (0.20-1.00); Monocytes % (A) 8.4 %; NRBC Per 100 WBC 0 /100 WBCS (0.0-0.0); Neutrophils # (A) 4.57 X 10*3/uL (1.80-7.70); Neutrophils % (A) 55.4 %; Platelet Count 170 X 10*3/uL (140-440); RBC 4.81 X 10*6/uL (4.40-5.60); RDW 13.5 % (11.5-14.5); WBC 8.26 X 10*3/uL (4.50-10.00)
== END | disposition home or self-care (01) ==
LOC: LABWHC1 15:32
PROVIDERS: ATTEND Psychiatry & Neurology Psychiatry
DX: F25.1 Schizoaffective disorder, depressive type (principal); Z79.899 Other long term (current) drug therapy
CPT/HCPCS: 36415; 85025

== ENCOUNTER 2022-03-01 21:25 | Emergency (ER) | payer MEDICARE, OTHER ==
[2022-03-01 21:37] VITALS: RESP 18; TEMP 97.9
--- NOTE | 2022-03-01 21:46 | ED ---
Male Urogenital HPI - General Chief complaint: Urogenital Stated complaint: Unable to urinate Time Seen by Provider: 03/01/22 21:39 Source: patient, RN notes reviewed Mode of arrival: ambulatory Limitations: no limitations - History of Present Illness Initial comments: This is a pleasant, 61-year-old schizophrenic male who states that he has had problems urinating for the past several days. Patient states he hasn't urinated since last night. Complaining of pressure in the suprapubic area. Patient still eating and drinking normally. Denies any change in current medications. Denies any [id number] cough and cold remedies. States he did see his regular physician last week and was given Flomax which is not helping. No headache, no fever or chills, no changes in vision or hearing, no sore throat or difficulty with speech, no neck pain, no chest pain or shortness of breath, no abdominal pain, no nausea or vomiting, no numbness or tingling, no extremity pain, no skin rashes or lesions. Past medical, surgical, social, and family history reviewed. - Related Data Home Medications Medication Instructions Recorded Confirmed Simvastatin [Zocor] 40 mg PO DAILY@1600 09/22/15 09/10/19 Gabapentin [Neurontin] 600 mg PO TID 06/01/18 09/10/19 HYDROcodone/APAP 5-325MG [[place] 1 tab PO Q6HR PRN 06/01/18 09/10/19 5-325] Previous Rx's Medication Instructions Recorded metFORMIN HCL [Glucophage] 500 mg PO BID-W/MEALS 15 Days tab 12/02/14 Acetaminophen Tab [Tylenol] 650 mg PO Q4HR PRN tab 09/13/19 DULoxetine HCL [Cymbalta] 90 mg PO DAILY 30 Days capsule. 09/13/19 Melatonin 5 mg PO HS 30 Days tablet 09/13/19 Nicotine 7Mg/24Hr Patch [Habitrol] 1 patch TRANSDERM DAILY 14 Days 09/13/19 patch cloZAPine [Clozaril] 225 mg PO HS 30 Days tab 09/13/19 clonazePAM [KlonoPIN] 1 mg PO BID PRN 14 Days tab 09/13/19 Allergies Allergy/AdvReac Type Severity Reaction Status Date / Time No Known Allergies Allergy Verified 09/10/19 21:37 Review of Systems ROS Statement: Those systems with pertinent positive or pertinent negative responses have been documented in the HPI. ROS Other: All systems not noted in ROS Statement are negative. Past Medical History Past Medical History: GERD/Reflux, Hyperlipidemia History of Any Multi-Drug Resistant Organisms: None Reported Past Surgical History: Tonsillectomy Past Anesthesia/Blood Transfusion Reactions: No Reported Reaction Past Psychological History: Anxiety, Depression, Panic Disorder, Schizoaffective Disorder, Schizophrenia Smoking Status: Current every day smoker Past Alcohol Use History: Occasional Past Drug Use History: None Reported - Past Family History Mother Family Medical History: Hypertension Father Family Medical History: Cancer Additional Family Medical History / Comment(s): PROSTATE CA, HEART VALVE REPLACEMENT General Exam Limitations: no limitations General appearance: alert, in no apparent distress Head exam: Present: atraumatic, normocephalic, normal inspection Eye exam: Present: normal appearance, PERRL, EOMI. Absent: scleral icterus, conjunctival injection, periorbital swelling ENT exam: Present: normal exam, mucous membranes moist Neck exam: Present: normal inspection. Absent: tenderness, meningismus, lymphadenopathy Respiratory exam: Present: normal lung sounds bilaterally. Absent: respiratory distress, wheezes, rales, rhonchi, stridor Cardiovascular Exam: Present: regular rate, normal rhythm, normal heart sounds. Absent: systolic murmur, diastolic murmur, rubs, gallop, clicks GI/Abdominal exam: Present: soft, normal bowel sounds. Absent: distended, tenderness, guarding, rebound, rigid Extremities exam: Present: normal inspection, full ROM, normal capillary refill. Absent: tenderness, pedal edema, joint swelling, calf tenderness Back exam: Present: normal inspection Neurological exam: Present: alert, oriented X3, CN II-XII intact Psychiatric exam: Present: normal affect, normal mood Skin exam: Present: warm, dry, intact, normal color. Absent: rash Course Vital Signs 03/01/22 21:32 Temperature 97.9 F Pulse Rate 104 H Respiratory 18 Rate Blood Pressure 120/81 O2 Sat by Pulse 98 Oximetry - Reevaluation(s) Reevaluation #1: 03/01/22 22:59 Medical record is reviewed Symptoms are improved here in the emergency department Patient is informed of results and questions answered Patient in no distress Medical Decision Making - Medical Decision Making Patient was reevaluated prior to discharge and is doing much better. We had about 400 mL of urine via bladder scan. When I rechecked the patient had just over 400 raining out into the Snider catheter bag. Fluid was quite dark revealing possible concentrated urine. There was no evidence of infectious process. 1+ proteinuria. 3 white cells, rare bacteria, 1 red cell, specific gravity 1.035. Patient may have some mild dehydration. Advised increasing fluids. I also advised following up with the urologist. Told the patient has followed to call at 8 AM tomorrow morning to schedule an appointment. The case was discussed in detail with ED attending physician. Presentation, findings, treatment plan discussed in detail. If they run into any issues, return here for Snider catheter removal in 2-4 days. I did have a discussion with the patient regarding suicidal ideation. Patient does have schizophrenia. He states that these thoughts are no worse than usual. Patient tells me that he will not act on this. I did discuss the patient and essentially developed a verbal contract with the patient that if any of this gets worse he'll return immediately. Patient was released with his father. Patient was told to return to the ER for any signs or symptoms worsen. Told to return immediately if any other problems arise. All questions answered. Treatment plan discussed. Patient in agreement Every effort has been made to ensure accuracy of this dictation. However, due to the limitations of electronic medical records and dictation devices, errors in charting still occur. Supervising physician is Dr. Wallis - Lab Data Result diagrams: 03/01/22 22:14 03/01/22 22:14 Lab Results 03/01/22 03/01/22 03/01/22 Range/Units 22:14 22:14 22:14 WBC 9.8 (3.8-10.6) k/uL RBC 4.85 (4.30-5.90) m/uL Hgb 14.2 (13.0-17.5) gm/dL Hct 41.6 (39.0-53.0) % MCV 85.8 (80.0-100.0) fL MCH 29.4 (25.0-35.0) pg MCHC 34.2 (31.0-37.0) g/dL RDW 13.2 (11.5-15.5) % Plt Count 170 (150-450) k/uL MPV 9.4 Neutrophils % 71 % Lymphocytes % 21 % Monocytes % 6 % Eosinophils % 1 % Basophils % 0 % Neutrophils # 6.9 (1.3-7.7) k/uL Lymphocytes # 2.0 (1.0-4.8) k/uL Monocytes # 0.6 (0-1.0) k/uL Eosinophils # 0.1 (0-0.7) k/uL Basophils # 0.0 (0-0.2) k/uL Sodium 142 (137-145) mmol/L Potassium 3.9 (3.5-5.1) mmol/L Chloride 107 (98-107) mmol/L Carbon Dioxide 24 (22-30) mmol/L Anion Gap 11 mmol/L BUN 13 (9-20) mg/dL Creatinine 0.73 (0.66-1.25) mg/dL Est GFR (CKD-EPI)AfAm >90 (>60 ml/min/1.73 sqM) Est GFR (CKD-EPI)NonAf >90 (>60 ml/min/1.73 sqM) Glucose 117 H (74-99) mg/dL Calcium 9.0 (8.4-10.2) mg/dL Total Bilirubin 0.5 (0.2-1.3) mg/dL AST 19 (17-59) U/L ALT 23 (4-49) U/L Alkaline Phosphatase 100 (38-126) U/L Total Protein 6.7 (6.3-8.2) g/dL Albumin 4.5 (3.5-5.0) g/dL Urine Color Yellow Urine Appearance Clear (Clear) Urine pH 6.0 (5.0-8.0) Ur Specific [place] 1.035 (1.001-1.035) Urine Protein 1+ H (Negative) Urine Glucose (UA) Negative (Negative) Urine Ketones Trace H (Negative) Urine Blood Negative (Negative) Urine Nitrite Negative (Negative) Urine Bilirubin Negative (Negative) Urine Urobilinogen 3.0 (<2.0) mg/dL Ur Leukocyte Esterase Negative (Negative) Urine RBC 1 (0-5) /hpf Urine WBC 3 (0-5) /hpf Urine Bacteria Rare H (None) /hpf Urine Mucus Rare H (None) /hpf Disposition Clinical Impression: Acute urinary retention, Dehydration, mild, Hx of schizophrenia Disposition: HOME SELF-CARE Condition: Good Instructions (If sedation given, give patient instructions): Urinary Retention in Men (ED), Snider Catheter Placement and Care (ED) Additional Instructions: Leave the Snider catheter in for 2-4 days. Follow-up with the urologist preferably. Call at 8 AM tomorrow morning for an appointment. Follow-up with your regular physician as directed. Return to the ER immediately if any symptoms worsen, new symptoms arise, or any other problems develop. Return to the emergency department immediately if any psychiatric symptoms worsen, especially suicidal thoughts. Is patient prescribed a controlled substance at d/c from ED?: No Referrals: Jeff Moon MD [Primary Care Provider] - 03/03/22 Al Otero MD [STAFF PHYSICIAN] - 03/03/22 Time of Disposition: 22:57
[2022-03-01 22:31] LABS: Basophils % (A) 0 %; Eosinophils # (A) 0.1 k/uL (0-0.7); Eosinophils % (A) 1 %; HCT 41.6 % (39.0-53.0); HGB 14.2 gm/dL (13.0-17.5); Lymphocytes % (A) 21 %; MCH 29.4 pg (25.0-35.0); MCHC 34.2 g/dL (31.0-37.0); MCV 85.8 fL (80.0-100.0); Mean Platelet Volume 9.4; Monocytes # (A) 0.6 k/uL (0-1.0); Monocytes % (A) 6 %; Neutrophils # (A) 6.9 k/uL (1.3-7.7); Neutrophils % (A) 71 %; Platelet Count 170 k/uL (150-450); RBC 4.85 m/uL (4.30-5.90); RDW 13.2 % (11.5-15.5); WBC 9.8 k/uL (3.8-10.6)
[2022-03-01 22:40] LABS: ALT 23 U/L (4-49); AST 19 U/L (17-59); African American GFR (CKD) >90 (>60 ml/min/1.73 sqM); Albumin 4.5 g/dL (3.5-5.0); Alkaline Phosphatase 100 U/L (38-126); Anion Gap 11 mmol/L; Blood Urea Nitrogen 13 mg/dL (9-20); Carbon Dioxide 24 mmol/L (22-30); Chloride 107 mmol/L (98-107); Glucose 117 mg/dL (74-99); Non-African American GFR(CKD) >90 (>60 ml/min/1.73 sqM); Potassium 3.9 mmol/L (3.5-5.1); Sodium 142 mmol/L (137-145); Total Bilirubin 0.5 mg/dL (0.2-1.3); Total Protein 6.7 g/dL (6.3-8.2)
[2022-03-01 22:44] LABS: Appearance,Urine Clear (Clear); Bacteria,Urine Rare /hpf; Bilirubin,Urine Negative (Negative); Blood,Urine Negative (Negative); Color,Urine Yellow; Glucose,Urine (UA) Negative (Negative); Ketones,Urine Trace (Negative); Leukocyte Esterase,Urine Negative (Negative); Mucus,Urine Rare /hpf; Nitrite,Urine Negative (Negative); Protein,Urine 1+ (Negative); RBC,Urine 1 /hpf (0-5); Specific Gravity,Urine 1.035 (1.001-1.035); WBC,Urine 3 /hpf (0-5)
[2022-03-01 23:20] VITALS: BP 116/70; PULSE 97
== END 2022-03-01 23:29 | disposition home or self-care (01) ==
LOC: EC 21:25
DX: R33.9 Retention of urine, unspecified (principal); E86.0 Dehydration; K21.9 Gastro-esophageal reflux disease without esophagitis; E78.5 Hyperlipidemia, unspecified; F17.200 Nicotine dependence, unspecified, uncomplicated; F41.9 Anxiety disorder, unspecified; F32.A Depression, unspecified; Z79.02 Long term (current) use of antithrombotics/antiplatelets; Z79.899 Other long term (current) drug therapy; Z86.59 Personal history of other mental and behavioral disorders
CPT/HCPCS: 36415; 51798; 80053; 81001; 85025; 99283

== ENCOUNTER 2022-03-03 13:59 | Emergency (ER) | payer MEDICARE, OTHER ==
[2022-03-03 14:06] VITALS: BP 114/73; PULSE 110; RESP 18; TEMP 98.2
--- NOTE | 2022-03-03 15:17 | ED ---
General Adult HPI - General Chief complaint: Urogenital Stated complaint: catheter problem Time Seen by Provider: 03/03/22 15:00 Source: patient, RN notes reviewed Mode of arrival: ambulatory Limitations: no limitations - History of Present Illness Initial comments: 61-year-old male presents emergency Department with chief complaint of a Snider catheter removed. Patient seen here a few days ago for acute urinary retention. Patient states that he has not follow-up with urology at this time. He states he still plans to. Patient states he like the catheter out. Denies any fevers chills abdominal pain no flank pain states been draining normally. Patient offers no other associated complaints. - Related Data Home Medications Medication Instructions Recorded Confirmed Simvastatin [Zocor] 40 mg PO DAILY@1600 09/22/15 09/10/19 Gabapentin [Neurontin] 600 mg PO TID 06/01/18 09/10/19 HYDROcodone/APAP 5-325MG [[place] 1 tab PO Q6HR PRN 06/01/18 09/10/19 5-325] Previous Rx's Medication Instructions Recorded metFORMIN HCL [Glucophage] 500 mg PO BID-W/MEALS 15 Days tab 12/02/14 Acetaminophen Tab [Tylenol] 650 mg PO Q4HR PRN tab 09/13/19 DULoxetine HCL [Cymbalta] 90 mg PO DAILY 30 Days capsule. 09/13/19 Melatonin 5 mg PO HS 30 Days tablet 09/13/19 Nicotine 7Mg/24Hr Patch [Habitrol] 1 patch TRANSDERM DAILY 14 Days 09/13/19 patch cloZAPine [Clozaril] 225 mg PO HS 30 Days tab 09/13/19 clonazePAM [KlonoPIN] 1 mg PO BID PRN 14 Days tab 09/13/19 Allergies Allergy/AdvReac Type Severity Reaction Status Date / Time No Known Allergies Allergy Verified 03/03/22 14:06 Review of Systems ROS Statement: Those systems with pertinent positive or pertinent negative responses have been documented in the HPI. ROS Other: All systems not noted in ROS Statement are negative. Past Medical History Past Medical History: GERD/Reflux, Hyperlipidemia History of Any Multi-Drug Resistant Organisms: None Reported Past Surgical History: Tonsillectomy Past Anesthesia/Blood Transfusion Reactions: No Reported Reaction Past Psychological History: Anxiety, Depression, Panic Disorder, Schizoaffective Disorder, Schizophrenia Smoking Status: Current every day smoker Past Alcohol Use History: Occasional Past Drug Use History: None Reported - Past Family History Mother Family Medical History: Hypertension Father Family Medical History: Cancer Additional Family Medical History / Comment(s): PROSTATE CA, HEART VALVE REPLACEMENT General Exam Limitations: no limitations General appearance: alert, in no apparent distress Head exam: Present: atraumatic, normocephalic, normal inspection Respiratory exam: Present: normal lung sounds bilaterally. Absent: respiratory distress, wheezes, rales, rhonchi, stridor Cardiovascular Exam: Present: regular rate, normal rhythm, normal heart sounds. Absent: systolic murmur, diastolic murmur, rubs, gallop, clicks GI/Abdominal exam: Present: soft, normal bowel sounds. Absent: distended, tenderness, guarding, rebound, rigid Course Vital Signs 03/03/22 14:04 Temperature 98.2 F Pulse Rate 110 H Respiratory 18 Rate Blood Pressure 114/73 O2 Sat by Pulse 96 Oximetry Medical Decision Making - Medical Decision Making Fully catheter was removed by RN with no complications. Patient did understand that removing the catheter he may have difficulty urinating and may still have issues with urinary retention. He is return if he is unable to urinate he understands this. He'll follow-up urologist otherwise. Disposition Clinical Impression: Encounter for Snider catheter removal, Acute urinary retention Disposition: HOME SELF-CARE Condition: Stable Additional Instructions: Please return to the Emergency Department if symptoms worsen or any other concerns. Is patient prescribed a controlled substance at d/c from ED?: No Referrals: Jeff Moon MD [Primary Care Provider] - 1-2 days Time of Disposition: 15:11
== END 2022-03-03 15:25 | disposition home or self-care (01) ==
LOC: EC 13:59
DX: R33.9 Retention of urine, unspecified (principal); K21.9 Gastro-esophageal reflux disease without esophagitis; E78.5 Hyperlipidemia, unspecified; F17.200 Nicotine dependence, unspecified, uncomplicated; Z46.6 Encounter for fitting and adjustment of urinary device; Z79.899 Other long term (current) drug therapy
CPT/HCPCS: 99283

== ENCOUNTER 2022-06-25 10:54 | Emergency (ER) | payer MEDICARE, OTHER ==
[2022-06-25 11:06] VITALS: TEMP 98
--- NOTE | 2022-06-25 11:28 | ED ---
Male Urogenital HPI - General Chief complaint: Urogenital Stated complaint: Revisit - Catheter Issues Time Seen by Provider: 06/25/22 11:19 Source: patient Mode of arrival: ambulatory Limitations: no limitations - History of Present Illness Initial comments: Patient is a 8-year-old male who presents to the emergency departments seeking removal of his Gee catheter. Patient had it placed on 06/21 for urinary retention. During this time I took care of patient he was discharged with instruction to follow-up with his urologist. Patient states he does not follow- up since he are already saw his urologist 3 weeks ago. Patient would like Gee taken out. He denies any pain. No fever, nausea, vomiting. - Related Data Home Medications Medication Instructions Recorded Confirmed Simvastatin [Zocor] 40 mg PO DAILY@1600 09/22/15 09/10/19 Gabapentin [Neurontin] 600 mg PO TID 06/01/18 09/10/19 HYDROcodone/APAP 5-325MG [[place] 1 tab PO Q6HR PRN 06/01/18 09/10/19 5-325] Previous Rx's Medication Instructions Recorded metFORMIN HCL [Glucophage] 500 mg PO BID-W/MEALS 15 Days tab 12/02/14 Acetaminophen Tab [Tylenol] 650 mg PO Q4HR PRN tab 09/13/19 DULoxetine HCL [Cymbalta] 90 mg PO DAILY 30 Days capsule. 09/13/19 Melatonin 5 mg PO HS 30 Days tablet 09/13/19 Nicotine 7Mg/24Hr Patch [Habitrol] 1 patch TRANSDERM DAILY 14 Days 09/13/19 patch cloZAPine [Clozaril] 225 mg PO HS 30 Days tab 09/13/19 clonazePAM [KlonoPIN] 1 mg PO BID PRN 14 Days tab 09/13/19 Allergies Allergy/AdvReac Type Severity Reaction Status Date / Time No Known Allergies Allergy Verified 06/25/22 11:06 Review of Systems ROS Statement: Those systems with pertinent positive or pertinent negative responses have been documented in the HPI. ROS Other: All systems not noted in ROS Statement are negative. Past Medical History Past Medical History: GERD/Reflux, Hyperlipidemia History of Any Multi-Drug Resistant Organisms: None Reported Past Surgical History: Tonsillectomy Past Anesthesia/Blood Transfusion Reactions: No Reported Reaction Past Psychological History: Anxiety, Depression, Panic Disorder, Schizoaffective Disorder, Schizophrenia Smoking Status: Current every day smoker Past Alcohol Use History: Occasional Past Drug Use History: None Reported - Past Family History Mother Family Medical History: Hypertension Father Family Medical History: Cancer Additional Family Medical History / Comment(s): PROSTATE CA, HEART VALVE REPLACEMENT General Exam Limitations: no limitations Respiratory exam: Present: normal lung sounds bilaterally. Absent: respiratory distress, wheezes, rales, rhonchi, stridor Cardiovascular Exam: Present: regular rate, normal rhythm, normal heart sounds. Absent: systolic murmur, diastolic murmur, rubs, gallop, clicks GI/Abdominal exam: Present: soft, normal bowel sounds. Absent: distended, tenderness, guarding, rebound, rigid Neurological exam: Present: alert, oriented X3, CN II-XII intact Psychiatric exam: Present: normal affect, normal mood Skin exam: Present: warm, dry, intact, normal color. Absent: rash Course Vital Signs 06/25/22 11:03 Temperature 98 F Pulse Rate 92 Respiratory 18 Rate Blood Pressure 116/67 O2 Sat by Pulse 95 Oximetry Medical Decision Making - Medical Decision Making Was pt. sent in by a medical professional or institution (, PA, CUSTOMER ADVOCACY MANAGER, urgent care, hospital, or skilled nursing...) When possible be specific @ -No Did you speak to anyone other than the patient for history (EMS, parent, family, police, friend...)? What history was obtained from this source @ -No Did you review nursing and triage notes (agree or disagree)? Why? @ -I reviewed and agree with nursing and triage notes Were old charts reviewed (outside hosp., previous admission, EMS record, old EKG, old radiological studies, urgent care reports/EKG's, skilled nursing records)? Report findings @ -No old charts were reviewed Differential Diagnosis (chest pain, altered mental status, abdominal pain women, abdominal pain men, vaginal bleeding, weakness, fever, dyspnea, syncope, headache, dizziness, GI bleed, back pain, seizure, CVA, palpatations, mental health)? @ -urinary retention, UTI, kidney stone EKG interpreted by me (3pts min.). @ -As above X-rays interpreted by me (1pt min.). @ -None done CT interpreted by me (1pt min.). @ -None done U/S interpreted by me (1pt. min.). @ -None done What testing was considered but not performed or refused? (CT, X-rays, U/S, labs)? Why? @ -None What meds were considered but not given or refused? Why? @ -None Did you discuss the management of the patient with other professionals (professionals i.e. , PA, CUSTOMER ADVOCACY MANAGER, lab, RT, psych nurse, social media executive, regional geodetic advisor, teacher, radio electronics officer, sample case porter)? Give summary @ -No Was smoking cessation discussed for >3mins.? @ -No Was critical care preformed (if so, how long)? @ -No Were there social determinants of health that impacted care today? How? (Homelessness, low income, unemployed, alcoholism, drug addiction, transportation, low edu. Level, literacy, decrease access to med. care, correction, rehab)? @ -[No] Was there de-escalation of care discussed even if they declined (Discuss DNR or withdrawal of care, Hospice)? DNR status @ -[No] What co-morbidities impacted this encounter? (DM, HTN, Smoking, COPD, CAD, Cancer, CVA, ARF, Chemo, Hep., AIDS, mental health diagnosis, sleep apnea, mor bid obesity)? @ -[None] Was patient admitted / discharged? Hospital course, mention meds given and route, prescriptions, significant lab abnormalities, going to OR and other pertinent info. @ Patient requesting removal of Gee catheter. Gee catheter removed. Patient was unable to urinate after because he did not have to go. Bladder scan showed 40 mL. Patient will be discharged with strict return parameters. He is highly encouraged to follow up with urology. Undiagnosed new problem with uncertain prognosis? @ -[No] Drug Therapy requiring intensive monitoring for toxicity (Heparin, Nitro, Insulin, Cardizem)? @ -[No] Were any procedures done? @ -[No] Diagnosis/symptom? @ -gee catheter problem Acute, or Chronic, or Acute on Chronic? @ -acute Uncomplicated (without systemic symptoms) or Complicated (systemic symptoms)? @ -uncomplicated Side effects of treatment? @ -[No] Exacerbation, Progression, or Severe Exacerbation? @ -[No] Poses a threat to life or bodily function? How? (Chest pain, [place], [place], pneumonia, PE, COPD, DKA, ARF, appy, cholecystitis, CVA, Diverticulitis, Homicidal, Suicidal, threat to staff... and all critical care pts) @ -[No] Dr. Boogie is my attending Disposition Clinical Impression: Gee catheter problem Disposition: HOME SELF-CARE Condition: Good Instructions (If sedation given, give patient instructions): Acute Urinary Retention in Women (ED) Additional Instructions: It is important to follow up with urology in 1-2 days. Return to the emergency department if you experience new, concerning, or worsening symptoms. Is patient prescribed a controlled substance at d/c from ED?: No Referrals: Jeff Moon MD [Primary Care Provider] - 1-2 days
[2022-06-25 12:22] VITALS: BP 120/87; PULSE 87; RESP 16
== END 2022-06-25 12:24 | disposition home or self-care (01) ==
LOC: EC 10:54
DX: T83.091A Other mechanical complication of indwelling urethral catheter, initial encounter (principal); E78.5 Hyperlipidemia, unspecified; F17.200 Nicotine dependence, unspecified, uncomplicated; Z79.899 Other long term (current) drug therapy
CPT/HCPCS: 99283

== ENCOUNTER → 2022-09-09 | Outpatient (CLI) | payer MEDICARE, OTHER ==
[2022-09-10 02:21] LABS: Basophils # (A) 0.06 X 10*3/uL (0.00-0.10); Basophils % (A) 0.6 %; Eosinophils # (A) 0.21 X 10*3/uL (0.04-0.35); Eosinophils % (A) 2.1 %; HCT 44.8 % (39.6-50.0); HGB 13.9 g/dL (13.0-17.0); Immature Grans, Automated 0.8 %; Lymphocytes # (A) 2.77 X 10*3/uL (0.90-5.00); Lymphocytes % (A) 27.8 %; MCH 28.2 pg (27.0-32.0); MCV 90.9 fL (80.0-97.0); Mean Platelet Volume 12.3 fL (9.5-12.2); Monocytes # (A) 0.85 X 10*3/uL (0.20-1.00); Monocytes % (A) 8.5 %; NRBC Per 100 WBC 0 /100 WBCS (0.0-0.0); Neutrophils # (A) 5.98 X 10*3/uL (1.80-7.70); Neutrophils % (A) 60.2 %; Platelet Count 203 X 10*3/uL (140-440); RBC 4.93 X 10*6/uL (4.40-5.60); RDW 14.1 % (11.5-14.5); WBC 9.95 X 10*3/uL (4.50-10.00)
== END | disposition home or self-care (01) ==
LOC: LABWHC1 14:12
PROVIDERS: ATTEND Psychiatry & Neurology Psychiatry
DX: F25.1 Schizoaffective disorder, depressive type (principal); Z79.899 Other long term (current) drug therapy
CPT/HCPCS: 36415; 85025

== ENCOUNTER 2022-09-13 17:05 | Emergency (ER) | payer MEDICARE, OTHER ==
--- NOTE | 2022-09-13 18:10 | ED ---
General Adult HPI - General Chief complaint: Urogenital Stated complaint: urine retention Time Seen by Provider: 09/13/22 17:33 Source: patient, RN notes reviewed Mode of arrival: ambulatory Limitations: no limitations - History of Present Illness Initial comments: Patient is a pleasant 62-year-old male presenting to the emergency department with concern for urinary retention. Patient does have history of similar symptoms previously and has had to have Snider catheter. Patient states he does use Flomax normally. Patient states there is some mild suprapubic fullness. Back pain. No fever. Last urination was yesterday p.m. - Related Data Home Medications Medication Instructions Recorded Confirmed Simvastatin [Zocor] 40 mg PO DAILY@1600 09/22/15 09/10/19 Gabapentin [Neurontin] 600 mg PO TID 06/01/18 09/10/19 HYDROcodone/APAP 5-325MG [[place] 1 tab PO Q6HR PRN 06/01/18 09/10/19 5-325] Previous Rx's Medication Instructions Recorded metFORMIN HCL [Glucophage] 500 mg PO BID-W/MEALS 15 Days tab 12/02/14 Acetaminophen Tab [Tylenol] 650 mg PO Q4HR PRN tab 09/13/19 DULoxetine HCL [Cymbalta] 90 mg PO DAILY 30 Days capsule. 09/13/19 Melatonin 5 mg PO HS 30 Days tablet 09/13/19 Nicotine 7Mg/24Hr Patch [Habitrol] 1 patch TRANSDERM DAILY 14 Days 09/13/19 patch cloZAPine [Clozaril] 225 mg PO HS 30 Days tab 09/13/19 clonazePAM [KlonoPIN] 1 mg PO BID PRN 14 Days tab 09/13/19 Allergies Allergy/AdvReac Type Severity Reaction Status Date / Time No Known Allergies Allergy Verified 09/13/22 17:18 Review of Systems ROS Statement: Those systems with pertinent positive or pertinent negative responses have been documented in the HPI. ROS Other: All systems not noted in ROS Statement are negative. Constitutional: Denies: fever Eyes: Denies: eye pain ENT: Denies: ear pain Respiratory: Denies: cough Cardiovascular: Denies: chest pain Endocrine: Denies: fatigue Gastrointestinal: Reports: as per HPI. Denies: abdominal pain Genitourinary: Reports: as per HPI. Denies: dysuria Musculoskeletal: Denies: back pain Skin: Denies: rash Past Medical History Past Medical History: GERD/Reflux, Hyperlipidemia History of Any Multi-Drug Resistant Organisms: None Reported Past Surgical History: Tonsillectomy Past Anesthesia/Blood Transfusion Reactions: No Reported Reaction Past Psychological History: Anxiety, Depression, Panic Disorder, Schizoaffective Disorder, Schizophrenia Smoking Status: Current every day smoker Past Alcohol Use History: Occasional Past Drug Use History: None Reported - Past Family History Mother Family Medical History: Hypertension Father Family Medical History: Cancer Additional Family Medical History / Comment(s): PROSTATE CA, HEART VALVE REPLACEMENT General Exam Limitations: no limitations General appearance: alert, in no apparent distress Head exam: Present: normocephalic Eye exam: Present: normal appearance Neck exam: Present: normal inspection Respiratory exam: Present: normal lung sounds bilaterally Cardiovascular Exam: Present: regular rate, normal rhythm GI/Abdominal exam: Present: soft. Absent: tenderness exam: Present: normal inspection Extremities exam: Present: normal inspection Neurological exam: Present: alert Psychiatric exam: Present: normal affect, normal mood Skin exam: Present: normal color Course Vital Signs 09/13/22 17:15 Temperature 97.3 F L Pulse Rate 102 H Respiratory 18 Rate Blood Pressure 128/74 O2 Sat by Pulse 97 Oximetry Medical Decision Making - Medical Decision Making Was pt. sent in by a medical professional or institution (, PA, SEASONAL DRIVER, urgent care, hospital, or halfway...) When possible be specific @ -No Did you speak to anyone other than the patient for history (EMS, parent, family, police, friend...)? What history was obtained from this source @ -No Did you review nursing and triage notes (agree or disagree)? Why? @ -I reviewed and agree with nursing and triage notes Were old charts reviewed (outside hosp., previous admission, EMS record, old EKG, old radiological studies, urgent care reports/EKG's, halfway records)? Report findings @ -No old charts were reviewed Differential Diagnosis (chest pain, altered mental status, abdominal pain women, abdominal pain men, vaginal bleeding, weakness, fever, dyspnea, syncope, headache, dizziness, GI bleed, back pain, seizure, CVA, palpatations, mental health)? @ -Differential Abdominal Pain Men: Appendicitis, cholecystitis, diverticulosis, ischemic bowel, pancreatitis, hepatitis, UTI, gastroenteritis, AAA, incarcerated hernia, bowel obstruction, constipation, inflammatory bowel, hepatitis, peptic ulcer disease, splenic infarction, perforated viscus, testicular torsion, this is not meant to be an all-inclusive list EKG interpreted by me (3pts min.). @ -As above X-rays interpreted by me (1pt min.). @ -None done CT interpreted by me (1pt min.). @ -None done U/S interpreted by me (1pt. min.). @ -None done What testing was considered but not performed or refused? (CT, X-rays, U/S, labs)? Why? @ -None What meds were considered but not given or refused? Why? @ -None Did you discuss the management of the patient with other professionals (professionals i.e. , PA, SEASONAL DRIVER, lab, RT, psych nurse, secondary social studies teacher, twist packer, teacher, parking enforcement officer, case finisher)? Give summary @ -No Was smoking cessation discussed for >3mins.? @ -No Was critical care preformed (if so, how long)? @ -No Were there social determinants of health that impacted care today? How? (Homelessness, low income, unemployed, alcoholism, drug addiction, transportation, low edu. Level, literacy, decrease access to med. care, usp, rehab)? @ -No Was there de-escalation of care discussed even if they declined (Discuss DNR or withdrawal of care, Hospice)? DNR status @ -No What co-morbidities impacted this encounter? (DM, HTN, Smoking, COPD, CAD, Cancer, CVA, ARF, Chemo, Hep., AIDS, mental health diagnosis, sleep apnea, morbid obesity)? @ -None Was patient admitted / discharged? Hospital course, mention meds given and route, prescriptions, significant lab abnormalities, going to OR and other pertinent info. @ -Patient had Snider catheter placed by nursing staff with resolution of symptoms. Large urinary output. Patient feels better and comfortable with discharge home. Patient advised follow-up with urology Undiagnosed new problem with uncertain prognosis? @ -No Drug Therapy requiring intensive monitoring for toxicity (Heparin, Nitro, Insulin, Cardizem)? @ -No Were any procedures done? @ -No Diagnosis/symptom? @ -Urinary retention Acute, or Chronic, or Acute on Chronic? @ -Acute Uncomplicated (without systemic symptoms) or Complicated (systemic symptoms)? @ -default Side effects of treatment? @ -No Exacerbation, Progression, or Severe Exacerbation? @ -No Poses a threat to life or bodily function? How? (Chest pain, [place], [place], pneumonia, PE, COPD, DKA, ARF, appy, cholecystitis, CVA, Diverticulitis, Homicidal, Suicidal, threat to staff... and all critical care pts) @ -No Disposition Clinical Impression: Urinary retention Disposition: HOME SELF-CARE Condition: Stable Instructions (If sedation given, give patient instructions): Urinary Retention in Men (ED) Additional Instructions: Please follow-up with urology within the week. Continue to use Flomax. Return for increased pain, urine not passing through catheter, worsening symptoms or other concerns or fevers. Is patient prescribed a controlled substance at d/c from ED?: No Referrals: Jeff Moon MD [Primary Care Provider] - 1-2 days Miguel Asencio MD [STAFF PHYSICIAN] - 1-2 days Time of Disposition: 18:55
[2022-09-13 19:07] VITALS: BP 123/76; PULSE 91; RESP 16; TEMP 98.3
== END 2022-09-13 19:20 | disposition home or self-care (01) ==
LOC: EC 17:05
DX: R33.9 Retention of urine, unspecified (principal); E78.5 Hyperlipidemia, unspecified; F17.200 Nicotine dependence, unspecified, uncomplicated; Z79.899 Other long term (current) drug therapy
CPT/HCPCS: 51702; 51798; 99283

== ENCOUNTER 2022-09-18 13:45 | Emergency (ER) | payer MEDICARE, OTHER ==
--- NOTE | 2022-09-18 14:52 | ED ---
General Adult HPI - General Chief complaint: Urogenital Stated complaint: recheck Time Seen by Provider: 09/18/22 14:41 Source: patient, RN notes reviewed Mode of arrival: ambulatory Limitations: no limitations - History of Present Illness Initial comments: Patient is a pleasant 62-year-old male presenting to the emergency department with concerns regarding his Snider catheter. Patient states he is having mild discomfort with it. Patient main concern is that he broke the distal part were transfer him. No abdominal pain. No fever. Patient does have history of similar symptoms previously requiring catheter. Patient states this catheter was just placed a few days ago. - Related Data Home Medications Medication Instructions Recorded Confirmed Simvastatin [Zocor] 40 mg PO DAILY@1600 09/22/15 09/10/19 Gabapentin [Neurontin] 600 mg PO TID 06/01/18 09/10/19 HYDROcodone/APAP 5-325MG [[place] 1 tab PO Q6HR PRN 06/01/18 09/10/19 5-325] Previous Rx's Medication Instructions Recorded metFORMIN HCL [Glucophage] 500 mg PO BID-W/MEALS 15 Days tab 12/02/14 Acetaminophen Tab [Tylenol] 650 mg PO Q4HR PRN tab 09/13/19 DULoxetine HCL [Cymbalta] 90 mg PO DAILY 30 Days capsule. 09/13/19 Melatonin 5 mg PO HS 30 Days tablet 09/13/19 Nicotine 7Mg/24Hr Patch [Habitrol] 1 patch TRANSDERM DAILY 14 Days 09/13/19 patch cloZAPine [Clozaril] 225 mg PO HS 30 Days tab 09/13/19 clonazePAM [KlonoPIN] 1 mg PO BID PRN 14 Days tab 09/13/19 Allergies Allergy/AdvReac Type Severity Reaction Status Date / Time No Known Allergies Allergy Verified 09/18/22 13:55 Review of Systems ROS Statement: Those systems with pertinent positive or pertinent negative responses have been documented in the HPI. ROS Other: All systems not noted in ROS Statement are negative. Constitutional: Denies: fever Eyes: Denies: eye pain ENT: Denies: ear pain Respiratory: Denies: cough Cardiovascular: Denies: chest pain Endocrine: Denies: fatigue Gastrointestinal: Denies: abdominal pain Genitourinary: Reports: as per HPI Musculoskeletal: Denies: back pain Neurological: Denies: weakness Past Medical History Past Medical History: GERD/Reflux, Hyperlipidemia, Prostate Disorder History of Any Multi-Drug Resistant Organisms: None Reported Past Surgical History: Tonsillectomy Past Anesthesia/Blood Transfusion Reactions: No Reported Reaction Past Psychological History: Anxiety, Depression, Panic Disorder, Schizoaffective Disorder, Schizophrenia Smoking Status: Current every day smoker Past Alcohol Use History: Occasional Past Drug Use History: None Reported - Past Family History Mother Family Medical History: Hypertension Father Family Medical History: Cancer Additional Family Medical History / Comment(s): PROSTATE CA, HEART VALVE REPLACEMENT General Exam Limitations: no limitations General appearance: alert, in no apparent distress Head exam: Present: normocephalic Eye exam: Present: normal appearance Neck exam: Present: normal inspection Respiratory exam: Present: normal lung sounds bilaterally Cardiovascular Exam: Present: regular rate, normal rhythm GI/Abdominal exam: Present: soft. Absent: distended, tenderness exam: Present: normal inspection, other (Snider catheter is in place) Neurological exam: Present: alert Psychiatric exam: Present: normal affect, normal mood Skin exam: Present: normal color Course Vital Signs 09/18/22 13:51 Temperature 98.3 F Pulse Rate 89 Respiratory 20 Rate Blood Pressure 124/79 O2 Sat by Pulse 99 Oximetry Medical Decision Making - Medical Decision Making Was pt. sent in by a medical professional or institution (, PA, GLASS DEPOSITION TENDER, urgent care, hospital, or [place] health [place] facility...) When possible be specific @ -No Did you speak to anyone other than the patient for history (EMS, parent, family, police, friend...)? What history was obtained from this source @ -No Did you review nursing and triage notes (agree or disagree)? Why? @ -I reviewed and agree with nursing and triage notes Were old charts reviewed (outside hosp., previous admission, EMS record, old EKG, old radiological studies, urgent care reports/EKG's, [place] health care facility records)? Report findings @ -No old charts were reviewed Differential Diagnosis (chest pain, altered mental status, abdominal pain women, abdominal pain men, vaginal bleeding, weakness, fever, dyspnea, syncope, headache, dizziness, GI bleed, back pain, seizure, CVA, palpatations, mental health)? @ -Differential Abdominal Pain Men: Appendicitis, cholecystitis, diverticulosis, ischemic bowel, pancreatitis, hepatitis, UTI, gastroenteritis, AAA, incarcerated hernia, bowel obstruction, constipation, inflammatory bowel, hepatitis, peptic ulcer disease, splenic infarction, perforated viscus, testicular torsion, this is not meant to be an all-inclusive list EKG interpreted by me (3pts min.). @ -As above X-rays interpreted by me (1pt min.). @ -None done CT interpreted by me (1pt min.). @ -None done U/S interpreted by me (1pt. min.). @ -None done What testing was considered but not performed or refused? (CT, X-rays, U/S, lab s)? Why? @ -None What meds were considered but not given or refused? Why? @ -None Did you discuss the management of the patient with other professionals (professionals i.e. DrLudwig, PA, GLASS DEPOSITION TENDER, lab, RT, psych nurse, social work lecturer, puttying and calking supervisor, teacher, sales promotion officer, child support case officer)? Give summary @ -No Was smoking cessation discussed for >3mins.? @ -No Was critical care preformed (if so, how long)? @ -No Were there social determinants of health that impacted care today? How? (Homelessness, low income, unemployed, alcoholism, drug addiction, transportation, low edu. Level, literacy, decrease access to med. care, longterm, rehab)? @ -No Was there de-escalation of care discussed even if they declined (Discuss DNR or withdrawal of care, Hospice)? DNR status @ -No What co-morbidities impacted this encounter? (DM, HTN, Smoking, COPD, CAD, Cancer, CVA, ARF, Chemo, Hep., AIDS, mental health diagnosis, sleep apnea, morbid obesity)? @ -None Was patient admitted / discharged? Hospital course, mention meds given and route, prescriptions, significant lab abnormalities, going to OR and other pertinent info. @ -Patient reevaluated and feeling much better with new catheter. Patient will be discharged. Patient states he does have an appointment with urology on Tuesday will keep this. Patient is also advised follow-up with his primary care doctor this week. Undiagnosed new problem with uncertain prognosis? @ -No Drug Therapy requiring intensive monitoring for toxicity (Heparin, Nitro, Insulin, Cardizem)? @ -No Were any procedures done? @ -No Diagnosis/symptom? @ -Urinary retention Acute, or Chronic, or Acute on Chronic? @ -Acute Uncomplicated (without systemic symptoms) or Complicated (systemic symptoms)? @ -default Side effects of treatment? @ -No Exacerbation, Progression, or Severe Exacerbation? @ -No Poses a threat to life or bodily function? How? (Chest pain, [place], [place], pneumonia, PE, COPD, DKA, ARF, appy, cholecystitis, CVA, Diverticulitis, Homicidal, Suicidal, threat to staff... and all critical care pts) @ -No Disposition Clinical Impression: Urinary retention Disposition: HOME SELF-CARE Condition: Stable Instructions (If sedation given, give patient instructions): Urinary Retention in Men (ED) Additional Instructions: Please follow-up with your urologist as planned on Tuesday. Please also follow-up with your primary care doctor in the being the week. Return for pounds with urination, fever pain, worsening symptoms or other concerns. Is patient prescribed a controlled substance at d/c from ED?: No Referrals: Jeff Moon MD [Primary Care Provider] - 1-2 days Time of Disposition: 16:29
[2022-09-18 17:08] VITALS: BP 121/79; PULSE 86; RESP 18; TEMP 98.4
== END 2022-09-18 16:56 | disposition home or self-care (01) ==
LOC: EC 13:45
DX: R33.9 Retention of urine, unspecified (principal); E78.5 Hyperlipidemia, unspecified; F41.9 Anxiety disorder, unspecified; F31.9 Bipolar disorder, unspecified; F17.200 Nicotine dependence, unspecified, uncomplicated; Z79.899 Other long term (current) drug therapy
CPT/HCPCS: 99283

== ENCOUNTER 2022-09-27 01:21 | Inpatient (IN) | payer MEDICARE, MEDICAID ==
--- NOTE | 2022-09-27 02:12 | ED ---
General Adult HPI - General Chief complaint: Urogenital Stated complaint: Urine Retention, Insomnia Time Seen by Provider: 09/27/22 01:32 Source: patient Limitations: no limitations - History of Present Illness Initial comments: Dictation was produced using [employer] dictation software. please excuse any grammatical, word or spelling errors. Chief Complaint: 62-year-old male presents to emergency Department with urinary retention and suicidal ideation History of Present Illness: 62-year-old female presents to the emergency department for urinary retention suicidal ideation. Patient has had prostate issues chronically. He states that prior to arrival to the ER he had not urinated since the last 10 hours. Since being in the ER he did urinate and felt like he emptied his bladder completely. Patient also schizophrenic states that he feels suicidal. Denies any plan. Denies any visual or auditory hallucinations. The ROS documented in this emergency department record has been reviewed and confirmed by me. Those systems with pertinent positive or negative responses have been documented in the HPI. All other systems are other negative and/or no ncontributory. - Related Data Home Medications Medication Instructions Recorded Confirmed Simvastatin [Zocor] 40 mg PO DAILY@1600 09/22/15 09/27/22 Gabapentin [Neurontin] 600 mg PO TID 06/01/18 09/27/22 HYDROcodone/APAP 5-325MG [[place] 1 tab PO Q6HR PRN 06/01/18 09/27/22 5-325] Previous Rx's Medication Instructions Recorded metFORMIN HCL [Glucophage] 500 mg PO BID-W/MEALS 15 Days tab 12/02/14 Acetaminophen Tab [Tylenol] 650 mg PO Q4HR PRN tab 09/13/19 DULoxetine HCL [Cymbalta] 90 mg PO DAILY 30 Days capsule. 09/13/19 Melatonin 5 mg PO HS 30 Days tablet 09/13/19 Nicotine 7Mg/24Hr Patch [Habitrol] 1 patch TRANSDERM DAILY 14 Days 09/13/19 patch cloZAPine [Clozaril] 225 mg PO HS 30 Days tab 09/13/19 clonazePAM [KlonoPIN] 1 mg PO BID PRN 14 Days tab 09/13/19 Allergies Allergy/AdvReac Type Severity Reaction Status Date / Time No Known Allergies Allergy Verified 09/27/22 06:08 Review of Systems ROS Statement: Those systems with pertinent positive or pertinent negative responses have been documented in the HPI. ROS Other: All systems not noted in ROS Statement are negative. Past Medical History Past Medical History: GERD/Reflux, Hyperlipidemia, Prostate Disorder History of Any Multi-Drug Resistant Organisms: None Reported Past Surgical History: Tonsillectomy Past Anesthesia/Blood Transfusion Reactions: No Reported Reaction Past Psychological History: Anxiety, Depression, Panic Disorder, Schizoaffective Disorder, Schizophrenia Smoking Status: Current every day smoker Past Alcohol Use History: Occasional Past Drug Use History: None Reported - Past Family History Mother Family Medical History: Hypertension Father Family Medical History: Cancer Additional Family Medical History / Comment(s): PROSTATE CA, HEART VALVE REPLACEMENT General Exam - General Exam Comments Initial Comments: PHYSICAL EXAM: General Impression: Alert and oriented x3, not in acute distress HEENT: Normocephalic atraumatic, extra-ocular movements intact, pupils equal and reactive to light bilaterally, mucous membranes moist. Cardiovascular: Heart regular rate and rhythm Chest: Able to complete full sentences, no retractions, no tachypnea Abdomen: abdomen soft, non-tender, non-distended, no organomegaly Musculoskeletal: Pulses present and equal in all extremities, no peripheral edema Motor: no focal deficits noted Neurological: CN II-XII grossly intact, no focal motor or sensory deficits noted Skin: Intact with no visualized rashes Psych: Normal affect and mood Limitations: no limitations Course Vital Signs 09/27/22 09/27/22 01:24 06:00 Temperature 97.5 F L 97.3 F L Pulse Rate 95 54 L Respiratory 18 16 Rate Blood Pressure 130/80 125/73 O2 Sat by Pulse 98 100 Oximetry Medical Decision Making - Medical Decision Making Was pt. sent in by a medical professional or institution (, PA, DOCUMENTATION SUPERVISOR, urgent care, hospital, or detention...) When possible be specific @ -No Did you speak to anyone other than the patient for history (EMS, parent, family, police, friend...)? What history was obtained from this source @ -No Did you review nursing and triage notes (agree or disagree)? Why? @ -I reviewed and agree with nursing and triage notes Were old charts reviewed (outside hosp., previous admission, EMS record, old EKG, old radiological studies, urgent care reports/EKG's, detention records)? Report findings @ -No old charts were reviewed Differential Diagnosis (chest pain, altered mental status, abdominal pain women, abdominal pain men, vaginal bleeding, musculoskeletal, weakness, fever, dyspnea, syncope, headache, dizziness, GI bleed, back pain, seizure, CVA, palpatations, mental health)? @ -Differential Mental Health: Depression, anxiety, bipolar, psychosis, schizophrenia, borderline personality, situational depression, adjustment disorder, behavioral disorder, brain tumor, malingering, substance abuse, encephalopathy, medication reaction, dementia, hypothyroidism, degenerative neurologic disorder, lupus.... This is not meant to be all-inclusive list EKG interpreted by me (3pts min.). @ -None done X-rays interpreted by me (1pt min.). @ -None done CT interpreted by me (1pt min.). @ -None done U/S interpreted by me (1pt. min.). @ -None done What testing was considered but not performed or refused? (CT, X-rays, U/S, labs)? Why? @ -None What meds were considered but not given or refused? Why? @ -None Did you discuss the management of the patient with other professionals (professionals i.e. , PA, DOCUMENTATION SUPERVISOR, lab, RT, psych nurse, social worker assistant, night shift supervisor, teacher, deck officer, rn case manager hospice)? Give summary @ -Discussed with EPS nurse who will arrange for patient be admitted to inpatient psych Was smoking cessation discussed for >3mins.? @ -No Was critical care preformed (if so, how long)? @ -No Were there social determinants of health that impacted care today? How? (Homelessness, low income, unemployed, alcoholism, drug addiction, transporta tion, low edu. Level, literacy, decrease access to med. care, intermediate, rehab)? @ -No Was there de-escalation of care discussed even if they declined (Discuss DNR or withdrawal of care, Hospice)? DNR status @ -No What co-morbidities impacted this encounter? (DM, HTN, Smoking, COPD, CAD, Cancer, CVA, ARF, Chemo, Hep., AIDS, mental health diagnosis, sleep apnea, morbid obesity)? @ -schizophrenia Was patient admitted / discharged? Hospital course, mention meds given and route, prescriptions, significant lab abnormalities, going to OR and other pertinent info. @ -62-year-old male presents emergency department for urinary retention suicidal ideation. Patient was able to urinate. Bladder scan was 1 50 mL. Patient was able to urinate after that. No indication for Snider catheter placement. Patient evaluated by EPS. Plan will be for patient be admitted to inpatient psych Undiagnosed new problem with uncertain prognosis? @ -No Drug Therapy requiring intensive monitoring for toxicity (Heparin, Nitro, Ins ulin, Cardizem)? @ -No Were any procedures done? @ -No Diagnosis/symptom? Acute, or Chronic, or Acute on Chronic? Uncomplicated (without systemic symptoms) or Complicated (systemic symptoms)? @ -1. Suicidal ideation Side effects of treatment? @ -No Exacerbation, Progression, or Severe Exacerbation? @ -No Poses a threat to life or bodily function? How? (Chest pain, [place], [place], pneumonia, PE, COPD, DKA, ARF, appy, cholecystitis, CVA, Diverticulitis, Homicidal, Suicidal, threat to staff... and all critical care pts) @ -yes - Lab Data Result diagrams: 09/28/22 06:27 09/28/22 06:27 Lab Results 09/27/22 Range/Units 04:44 Coronavirus (PCR) Not Detected (Not Detectd) Disposition Clinical Impression: Suicidal thoughts Disposition: ADMITTED IP TO THIS HOSP Condition: Fair
[2022-09-27] MEDS ORDERED: ACETAMINOPHEN TAB 325 MG TAB PO PRN (06:03)
[2022-09-27] MEDS ORDERED: MAGNESIUM HYDROXIDE 2,400 MG/30 ML CUP PO PRN (06:03)
[2022-09-27] MEDS ORDERED: MAG HYDROX/AL HYDROX/SIMETH 30 ML CUP PO PRN (06:03)
[2022-09-27] MEDS: HYDROcodone/APAP 5-325MG 1 EACH TAB PO PRN ×2 (06:42→18:26)
[2022-09-27] MEDS ORDERED: DULoxetine HCL 60 MG CAPSULE.DR PO SCH (09:00)
[2022-09-27] MEDS: NICOTINE 7MG/24HR PATCH TRANSDERM SCH (09:48)
[2022-09-27] MEDS ORDERED: ZIPRASIDONE 20 MG CAP PO PRN (15:22)
[2022-09-27] MEDS ORDERED: ZIPRASIDONE 20 MG VIAL IM PRN (15:22)
--- NOTE | 2022-09-27 15:23 | P.HP ---
Psychiatric H&P - . H&P Date: 09/27/22 History & Physical: Allergies Allergy/AdvReac Type Severity Reaction Status Date / Time No Known Allergies Allergy Verified 09/27/22 06:08 Vital Signs Temp 98.3 F 09/27/22 06:51 Pulse 62 09/27/22 06:51 Resp 14 09/27/22 06:51 BP 125/73 09/27/22 06:51 Pulse Ox 100 09/27/22 06:51 FiO2 Intake & Output 09/26/22 09/27/22 09/27/22 18:59 06:59 18:59 Weight 85.729 kg Laboratory Last Values Coronavirus (PCR) Not Detected (Not Detectd) 09/27/22 04:44 09/27/22 15:08 IDENTIFYING DATA: Patient is a 62-year-old male with history of chronic schizoaffective disorder who currently lives with his father in a house has no kids is single and collects SSI. HPI: Patient presented to the hospital yesterday with suicidal thoughts and also complaining of urinary retention according to his report. Patient apparently has chronic prostate problems. Patient was claiming that he was having trouble urinating and came to the hospital. He appeared to have a very constricted and intense stare at regular. He was directable during conversation. He was very concrete in his responses, poverty of content. Also poverty of thought as well. He claims that he has to come up to the mental health unit however did not state why. He claims that he has a history of schizophrenia for several years. He claims that he currently taking Clozaril and also taking [place] for pain. He denies any current stressors in his life or any changes at home. He states that he isn't having suicidal thoughts "on and off" recently however did not endorse a plan. Denies any homicidal ideations. States that he has some anxiety and depression at this time. He denies any problems with sleep or appetite. At this time patient denies any auditory or visual hallucinations. Patient denies any flight of ideas racing thoughts and increased in goal directed behavior. Patient using any other recreational drug use however does smoke cigarettes. PAST PSYCHIATRIC HISTORY: Patient states that he has a history of schizoaffective disorder. Patient is on Clozaril 200 mg daily at bedtime and Neurontin 600 mg 3 times a day and Cymbalta 60 mg daily. She and has had several psychiatric hospitalizations the past and his last hospitalization was in september 2019. patient currently follows up with Dr Miller at [facility]. PMH: GERD and hyperlipidemia ALLERGIES: as per EMR CHEMICAL DEPENDENCY HISTORY: as per HPI FAMILY PSYCHIATRIC/SUBSTANCE USE HISTORY: States that his grandmother has schizophrenia SOCIAL HISTORY: Patient was born and raised in [place] [facility] [place] and claims a completed high school and states that he went to [employer] for college however did not graduate. She denies any legal problems. He currently lives with his father in a house has no kids is single and collects SSI. MENTAL STATUS EXAM: General Appearance: Patient appears to be stated age is tall, directable, alert, and attempts to cooperate. Patient appears to have poor hygiene and grooming. Wearing hospital gown. Behavior: Patient is seated without any agitated behavior. Attempts to cooperate. intense eye contact Speech: Patient's speech is fluent and nonpressured. Mood/Affect: Patient reports their mood is depressed and anxious, affect is congruent and constricted. Suicidality/Homicidality: Patient denies having any homicidal ideation intent or plan. Admits to fleeting thoughts of suicide however no intent or plan. Perceptions: Patient denies any visual hallucinations and denies any auditory hallucinations Though content/process: There is no evidence of any delusional thought content. [place]. poverty of content. Memory and concentration: AOX3, grossly intact for the purposes of this session. Can spell "WORLD" backwards Judgment and insight: poor/limited chronically STRENGTHS/WEAKNESSES: strength is that patient is resilient. Weakness is that patient has poor judgment and chronic mental illness INTELLECT: average IMPRESSIONS: Schizoaffective disorder depressive type Nicotine dependence PLAN: -Patient is admitted under voluntary status to MHU for stabilization of psychiatric symptoms and safety. Patient signed adult voluntary form and medication consent and is placed in patient's chart. -Medications : Will start patient on clozapine 200 mg daily at bedtime for psychosis/mood stabilization. We'll continue Klonopin twice a day when necessary for anxiety. increase Cymbalta 90 mg daily for mood/anxiety/pain and can consider increasing this dose if needed. -Geodon PRN for agitation/aggression -Patient was informed of the risks, benefits and side effects of the medication and patient verbally consented to taking the medications. Patient signed med consent form and was placed in chart. -Internal Medicine consult to perform medical evaluation and physical. -NRT - nicotine patch -SW on board for discharge planning. Encourage patient to participate in groups to work on coping skills. Likely discharge in 2-3 days.
[2022-09-27] MEDS: ATORVASTATIN 20 MG TAB PO SCH (15:41)
[2022-09-27] MEDS: cloZAPine 100 MG TAB PO SCH (21:36)
[2022-09-27] MEDS: clonazePAM 1 MG TAB PO PRN (22:49)
[2022-09-28] MEDS: HYDROcodone/APAP 5-325MG 1 EACH TAB PO PRN ×2 (01:52→22:13)
[2022-09-28 07:03] LABS: Basophils # (A) 0.1 k/uL (0-0.2); Basophils % (A) 1 %; Eosinophils # (A) 0.3 k/uL (0-0.7); Eosinophils % (A) 4 %; HCT 38.6 % (39.0-53.0); Lymphocytes # (A) 2.7 k/uL (1.0-4.8); Lymphocytes % (A) 32 %; MCHC 33.5 g/dL (31.0-37.0); MCV 86.6 fL (80.0-100.0); Mean Platelet Volume 8.7; Monocytes # (A) 0.5 k/uL (0-1.0); Monocytes % (A) 6 %; Neutrophils # (A) 4.8 k/uL (1.3-7.7); Neutrophils % (A) 57 %; Platelet Count 200 k/uL (150-450); RBC 4.46 m/uL (4.30-5.90); RDW 13.4 % (11.5-15.5); WBC 8.5 k/uL (3.8-10.6)
[2022-09-28 07:15] LABS: ALT 16 U/L (4-49); AST 17 U/L (17-59); African American GFR (CKD) >90 (>60 ml/min/1.73 sqM); Albumin 3.3 g/dL (3.5-5.0); Alkaline Phosphatase 90 U/L (38-126); Anion Gap 9 mmol/L; Bilirubin, Delta 0.1 mg/dL (0.0-0.2); Bilirubin,Unconjugated 0.2 mg/dL (0.0-1.1); Blood Urea Nitrogen 10 mg/dL (9-20); Calcium 8.5 mg/dL (8.4-10.2); Carbon Dioxide 25 mmol/L (22-30); Chloride 107 mmol/L (98-107); Glucose 98 mg/dL (74-99); Non-African American GFR(CKD) >90 (>60 ml/min/1.73 sqM); Potassium 3.9 mmol/L (3.5-5.1); Sodium 141 mmol/L (137-145); Total Bilirubin 0.3 mg/dL (0.2-1.3); Total Protein 5.8 g/dL (6.3-8.2)
[2022-09-28] MEDS: DULoxetine HCL 30 MG CAPSULE.DR PO SCH (08:36)
[2022-09-28] MEDS: NICOTINE 7MG/24HR PATCH TRANSDERM SCH (08:37)
--- NOTE | 2022-09-28 08:51 | P.CONS ---
History of Present Illness - Reason for Consult Consult date: 09/28/22 - Chief Complaint Altered mental status - History of Present Illness This history and physical 62-year-old white male who has normal history schizoaffective disorder who came in with significant change in mental status. He has an underlying history of opiate dependence secondary to DDD. He has been: The office more frequently and has tendency to have obsessive behavior. The patient is appropriately admitted for mental change. Past medical history includes BPH with reflux esophagitis. Underlying history of hyperlipidemia Review of Systems Constitutional: Denies chills, Denies fever Eyes: denies blurred vision, denies pain Ears, nose, mouth and throat: Denies headache, Denies sore throat Cardiovascular: Denies chest pain, Denies shortness of breath Respiratory: Denies cough Past Medical History Past Medical History: GERD/Reflux, Hyperlipidemia, Prostate Disorder History of Any Multi-Drug Resistant Organisms: None Reported Past Surgical History: Tonsillectomy Past Anesthesia/Blood Transfusion Reactions: No Reported Reaction Past Psychological History: Anxiety, Depression, Panic Disorder, Schizoaffective Disorder, Schizophrenia Smoking Status: Current every day smoker Past Alcohol Use History: Occasional Additional Past Alcohol Use History / Comment(s): STARTED SMOKING AT AGE 25 Past Drug Use History: None Reported - Past Family History Mother Family Medical History: Hypertension Father Family Medical History: Cancer Additional Family Medical History / Comment(s): PROSTATE CA, HEART VALVE REPLACEMENT Medications and Allergies Home Medications Medication Instructions Recorded Confirmed Type metFORMIN HCL [Glucophage] 500 mg PO BID-W/MEALS 15 Days tab 12/02/14 09/27/22 Rx Simvastatin [Zocor] 40 mg PO DAILY@1600 09/22/15 09/27/22 History Gabapentin [Neurontin] 600 mg PO TID 06/01/18 09/27/22 History HYDROcodone/APAP 5-325MG [[place] 1 tab PO Q6HR PRN 06/01/18 09/27/22 History 5-325] Acetaminophen Tab [Tylenol] 650 mg PO Q4HR PRN tab 09/13/19 09/27/22 Rx DULoxetine HCL [Cymbalta] 90 mg PO DAILY 30 Days capsule. 09/13/19 09/27/22 Rx Melatonin 5 mg PO HS 30 Days tablet 09/13/19 09/27/22 Rx Nicotine 7Mg/24Hr Patch [Habitrol] 1 patch TRANSDERM DAILY 14 Days 09/13/19 09/27/22 Rx patch cloZAPine [Clozaril] 225 mg PO HS 30 Days tab 09/13/19 09/27/22 Rx clonazePAM [KlonoPIN] 1 mg PO BID PRN 14 Days tab 09/13/19 09/27/22 Rx Allergies Allergy/AdvReac Type Severity Reaction Status Date / Time No Known Allergies Allergy Verified 09/27/22 06:08 Physical Exam Vitals: Vital Signs Temp Pulse Resp BP Pulse Ox 09/28/22 01:53 97.9 F 99 18 94/55 97 - Constitutional General appearance: cooperative, no acute distress - EENT Eyes: EOMI - Neck Neck: no lymphadenopathy - Respiratory Respiratory: bilateral: diminished - Cardiovascular Rhythm: regular Heart sounds: normal: S1, S2 Abnormal Heart Sounds: no S3 Gallop - Gastrointestinal General gastrointestinal: soft, no tenderness - Integumentary Integumentary: no cellulitis Results CBC & Chem 7: 09/28/22 06:27 09/28/22 06:27 Labs: Abnormal Lab Results - Last 24 Hours (Table) 09/28/22 09/28/22 Range/Units 06:27 06:27 Hct 38.6 L (39.0-53.0) % Creatinine 0.62 L (0.66-1.25) mg/dL Total Protein 5.8 L (6.3-8.2) g/dL Albumin 3.3 L (3.5-5.0) g/dL Assessment and Plan (1) Diabetes Current Visit: No Status: Acute Code(s): E11.9 - TYPE 2 DIABETES MELLITUS WITHOUT COMPLICATIONS SNOMED Code(s): 08945557 (2) Nicotine dependence Current Visit: No Status: Acute Priority: Low Code(s): F17.200 - NICOTINE DEPENDENCE, UNSPECIFIED, UNCOMPLICATED SNOMED Code(s): 06934891 (3) Schizoaffective disorder Current Visit: No Status: Acute Priority: High Code(s): F25.9 - SCHIZOAFFECTIVE DISORDER, UNSPECIFIED SNOMED Code(s): 00618985 (4) Suicidal thoughts Current Visit: No Status: Acute Code(s): R45.851 - SUICIDAL IDEATIONS SNOMED Code(s): 7617888 (5) Urinary retention Current Visit: No Status: Acute Code(s): R33.9 - RETENTION OF URINE, UNSPECIFIED SNOMED Code(s): 665791654 Plan: Reconcile home medications. Appropriate hospitalization. We'll follow clinically as necessary. See orders otherwise. Time with Patient: Less than 30
--- NOTE | 2022-09-28 11:18 | P.PN ---
Progress Note - Text Progress Note Date: 09/28/22 Interval History: Patient was seen wandering the hallways and was directable and agreeable to speak with keno writer / runner in the office. Currently, the patient is not reporting any suicidal or homicidal ideation, intention, and/or plan. He is not reporting any auditory or visual hallucinations. He is denying any paranoia or other delusions. He does report that he was experiencing suicidal thoughts in regards to his issues regarding urinary retention. However, he is not reporting any thoughts of self-harm today and states that he has been urinating appropriately while on the unit. He reports no significant side effects of his medications. He denies any issues regarding his sleep or his appetite. Mental Status Exam: General Appearance: Patient appears to be stated age is alert, directable, and cooperative. Behavior: Patient is calmly seated without any agitated behavior. Some psychomotor slowing was evident. Speech: Patient's speech is fluent and nonpressured. Monotone. Nonspontaneous. Mood/Affect: Mood is improving mildly, affect is blunted. Suicidality/Homicidality: Patient denies having any suicidal or homicidal ideation intent or plan. Perceptions: Patient denies any visual hallucinations and denies any auditory hallucinations Though content/process: Currently no overt delusional thought content. [place]. Memory and concentration: AOX3, grossly intact for the purposes of this session Judgment and insight: Improving mildly Assessment Schizoaffective disorder depressive type Nicotine dependence Plan: -Patient continues to meet criteria for inpatient psychiatric admission for symptom stabilization and safety. Patient has signed adult voluntary form and medication consent and was placed in patient's chart. -Medications: Clozapine 200 mg by mouth at bedtime for psychosis Cymbalta 90 mg by mouth daily for depression Klonopin 1 mg by mouth twice a day when necessary for anxiety -When necessary Geodon for agitation/aggression. -NRT - nicotine patch -SW on board for discharge planning. Encouraged the patient to participate in milieu.
[2022-09-28] MEDS: ATORVASTATIN 20 MG TAB PO SCH (15:09)
[2022-09-28 15:10] LABS: Clozapine (Clozaril) 606 ng/mL (200-700); Norclozapine 299 ng/mL (200-700)
[2022-09-28 18:11] LABS: Chol/HDL Ratio 4.16 Ratio; LDL Cholesterol,Calculated 89.5 mg/dL (0.0-131.0)
[2022-09-28] MEDS: cloZAPine 100 MG TAB PO SCH (20:39)
[2022-09-29] MEDS: DULoxetine HCL 30 MG CAPSULE.DR PO SCH (08:59)
[2022-09-29] MEDS: NICOTINE 7MG/24HR PATCH TRANSDERM SCH (08:59)
--- NOTE | 2022-09-29 10:50 | P.PN ---
Progress Note - Text Progress Note Date: 09/29/22 Interval History: Patient was seen wandering the hallways and was directable and agreeable to speak with headline writer in the office. Currently, the patient is not reporting any suicidal or homicidal ideation, intention, and/or plan. He is not reporting any auditory or visual hallucinations. He is denying any paranoia or other delusions. He reports he was concerned about urinary retention yesterday and that caused him some distress. Clozapine levels are WNL. He reports no side effects of his medication otherwise. He expresses future orientation and a desire for discharge. Mental Status Exam: General Appearance: Patient appears to be stated age is alert, directable, and cooperative. Behavior: Patient is calmly seated without any agitated behavior. Mild psychomotor slowing. Speech: Patient's speech is fluent and nonpressured. Monotone. Nonspontaneous. Mood/Affect: Mood is improving mildly, affect is blunted. Suicidality/Homicidality: Patient denies having any suicidal or homicidal ideation intent or plan. Perceptions: Patient denies any visual hallucinations and denies any auditory hallucinations Though content/process: Currently no overt delusional thought content. [place]. Memory and concentration: AOX3, grossly intact for the purposes of this session Judgment and insight: Improving mildly Vital Signs Temp 97.9 F 09/29/22 07:02 Pulse 86 09/29/22 07:02 Resp 15 09/29/22 07:02 BP 120/69 09/29/22 07:02 Pulse Ox 97 09/29/22 07:02 FiO2 Laboratory Results - Last 24 Hours 09/27/22 09/27/22 09/28/22 10:01 10:01 06:[address] Glu mg/dL 123 Hemoglobin A1c 5.9 Triglycerides 164.00 H Cholesterol 161.00 LDL Cholesterol, Calc 89.5 VLDL Cholesterol, Calc 32.80 HDL Cholesterol 38.70 L Cholesterol/HDL Ratio 4.16 Clozapine 606 Norclozapine 299 Assessment Schizoaffective disorder depressive type Nicotine dependence Plan: -Patient continues to meet criteria for inpatient psychiatric admission for symptom stabilization and safety. Patient has signed adult voluntary form and medication consent and was placed in patient's chart. Anticipate discharge tomorrow. -Medications: Clozapine 200 mg by mouth at bedtime for psychosis Cymbalta 90 mg by mouth daily for depression Klonopin 1 mg by mouth twice a day when necessary for anxiety -When necessary Geodon for agitation/aggression. -NRT - nicotine patch -SW on board for discharge planning. Encouraged the patient to participate in milieu.
[2022-09-29] MEDS: ATORVASTATIN 20 MG TAB PO SCH (16:22)
[2022-09-29] MEDS: cloZAPine 100 MG TAB PO SCH (20:24)
[2022-09-29] MEDS: HYDROcodone/APAP 5-325MG 1 EACH TAB PO PRN (22:07)
[2022-09-30 01:40] VITALS: TEMP 97.4
[2022-09-30 04:09] VITALS: BP 102/70; PULSE 107; RESP 18
[2022-09-30] MEDS: clonazePAM 1 MG TAB PO PRN (04:11)
[2022-09-30] MEDS: NICOTINE 7MG/24HR PATCH TRANSDERM SCH (08:49)
[2022-09-30] MEDS: DULoxetine HCL 30 MG CAPSULE.DR PO SCH (08:49)
--- NOTE | 2022-09-30 11:32 | P.DS ---
Providers Date of admission: 09/27/22 06:00 Expected date of discharge: 09/30/22 Attending physician: Yoel Davis MD Consults: 09/27/22 06:03 Consult Physician Routine Consulting Provider: Jeff Moon Consult Reason/Comments: For H & P for Medical Follow Up Do you want consulting provider notified?: Yes, Notify in am Primary care physician: Jeff Moon - Discharge Diagnosis(es) (1) Schizoaffective disorder, depressive type Current Visit: Yes Status: Acute Priority: High (2) Nicotine dependence Current Visit: Yes Status: Chronic Priority: Low Hospital Course: Admission HPI: Initial psychiatric evaluation was completed by Dr. Prado on 09/27/2022 who wrote: IDENTIFYING DATA: Patient is a 62-year-old male with history of chronic schizoaffective disorder who currently lives with his father in a house has no kids is single and collects SSI. HPI: Patient presented to the hospital yesterday with suicidal thoughts and also complaining of urinary retention according to his report. Patient apparently has chronic prostate problems. Patient was claiming that he was having trouble urinating and came to the hospital. He appeared to have a very constricted and intense stare at regular. He was directable during conversation. He was very concrete in his responses, poverty of content. Also poverty of thought as well. He claims that he has to come up to the mental health unit however did not state why. He claims that he has a history of schizophrenia for several years. He claims that he currently taking Clozaril and also taking [place] for pain. He denies any current stressors in his life or any changes at home. He states that he isn't having suicidal thoughts "on and off" recently however did not endorse a plan. Denies any homicidal ideations. States that he has some anxiety and depression at this time. He denies any problems with sleep or appetite. At this time patient denies any auditory or visual hallucinations. Patient denies any flight of ideas racing thoughts and increased in goal directed behavior. Patient using any other recreational drug use however does smoke cigarettes. PAST PSYCHIATRIC HISTORY: Patient states that he has a history of schizoaffective disorder. Patient is on Clozaril 200 mg daily at bedtime and Neurontin 600 mg 3 times a day and Cymbalta 60 mg daily. She and has had several psychiatric hospitalizations the past and his last hospitalization was in september 2019. patient currently follows up with Dr Roberts at [facility]. Hospital course: Upon admission to the unit patient was initially presenting as depressed, anxious, and suicidal. Patient was however directable and agreeable to commence treatment. Patient got along well with other patients on the unit and followed unit protocol. Patient was compliant with the medications and denied any side effects throughout hospital course. Patient was started on his home medication of clozaril and klonopin with an increase in his cymbalta. Patient spoke of his stressors and engaged in therapy both group and individual. Patient was also seen by medical team for history and physical exam. The patient was primarily concerned with his urinary retention. However, during the hospitalization he was able to urinate normally. Over the course of the hospitalization, the patient reported an improvement in his mood and became more future and goal oriented. He expressed a desire to live for himself and his family. On the day of discharge, he is not reporting any suicidal or homicidal ideation, intention and/or plan. He reports no access to firearms or other weapons. He denies any auditory or visual hallucinations. He reports no paranoia or other delusions. The patient has been adherent with his medications and is not reporting any significant side effects. Medical issues or concerns and reports no chest pain, shows of breath, palpitations, nausea, vomiting, urinary retention, akathisia, or tardive dyskinesia. The patient was counseled at length the importance of medication adherence appropriate outpatient follow-up. He was also counseled at length on abstaining from all substances including alcohol, tobacco, marijuana, and all illicit drugs. Prior to discharge a family meeting will be arranged by social media designer to answer any questions and ensure safety upon discharge. Mental status exam: General Appearance: Patient appears to be stated age is alert, pleasant, and cooperative. Patient is in no acute distress and has fair hygiene and grooming Behavior: Patient is calmly seated without any agitated behavior. Speech: Patient's speech is fluent and nonpressured. Mood/Affect: Patient reports their mood is "much better", affect is congruent and euthymic to bright. Suicidality/Homicidality: Patient denies having any suicidal or homicidal ideation intent or plan. Perceptions: Patient denies any auditory or visual hallucinations. Though content/process: There is no evidence of any delusional thought content and thought process is linear and goal-directed. He is future oriented Memory and concentration: AOX3, grossly intact for the purposes of this session. Can spell "WORLD" backwards correctly. Judgment and insight: Improved with guarded prognosis Impression: Schizoaffective disorder, depressive type Nicotine dependence Plan: -Continue with discharge today as patient has improved and stabilized psychiatrically and is not currently an imminent threat to himself and/or others. Patient will remain at chronically elevated risk due to the severity an d chronicity of his mental illness. -Continue medications: Clozapine 200 mg by mouth at bedtime for psychosis Cymbalta 90 mg by mouth daily for depression Klonopin 1 mg by mouth twice a day when necessary for anxiety -Patient was counseled on the need for medication compliance and appropriate follow-up at mental health and also primary care for medical issues. Patient verbalized understanding and agreed. -Social work to arrange for and conduct family meeting to ensure safety upon discharge and answer any questions/concerns. Social work also to arrange for patients follow up appointments with [facility] for psychiatric care along with follow up with primary care provider. -Patient counseled on abstaining from recreational drugs and marijuana and alcohol. Was informed/educated on the adverse effects on their physical and mental health. Patient verbally agreed and understood. -Patient was instructed to return to the hospital or seek immediate medical care if their psychiatric or medical symptoms do worsen or reoccur. -Psychoeducation and supportive therapy provided to patient. Risks and benefits of pharmacological treatment versus the risks and benefits of nontreatment weighed and discussed. Informed consent discussion held. Common side effects of psychotropics discussed such as, but not limited to headache, GI disturbance, sexual dysfunction, movement disorders, sedation, and orthostatic hypotension. Life threatening and blackbox warnings of prescribed medications also discussed. Potential risks of operating a vehicle or heavy machinery discussed with patient at length. Advised on importance of compliance and a reliable and responsible manner. Patient advised to review FDA consumer labeling of all medications prior to taking. Patient verbalized understanding of potential risks, and agrees with current treatment plan. Patient advised to medically contact physician/emergency personnel if any acute changes in condition occur. Vital Signs Temp 97.4 F L 09/30/22 01:39 Pulse 107 H 09/30/22 04:08 Resp 18 09/30/22 04:08 BP 102/70 09/30/22 04:08 Pulse Ox 97 09/30/22 04:08 FiO2 Laboratory Results WBC 8.5 k/uL (3.8-10.6) 09/28/22 06:27 RBC 4.46 m/uL (4.30-5.90) 09/28/22 06:27 Hgb 13.0 gm/dL (13.0-17.5) 09/28/22 06:27 Hct 38.6 % (39.0-53.0) L 09/28/22 06:27 MCV 86.6 fL (80.0-100.0) 09/28/22 06:27 MCH 29.0 pg (25.0-35.0) 09/28/22 06: MCHC 33.5 g/dL (31.0-37.0) 09/28/22 06: RDW 13.4 % (11.5-15.5) 09/28/22 06:27 Plt Count 200 k/uL (150-450) 09/28/22 06:27 MPV 8.7 09/28/22 06:27 Neutrophils % 57 % 09/28/22 06:27 Lymphocytes % 32 % 09/28/22 06:27 Monocytes % 6 % 09/28/22 06: Eosinophils % 4 % 09/28/22 06:27 Basophils % 1 % 09/28/22 06:27 Neutrophils # 4.8 k/uL (1.3-7.7) 09/28/22 06:27 Lymphocytes # 2.7 k/uL (1.0-4.8) 09/28/22 06:27 Monocytes # 0.5 k/uL (0-1.0) 09/28/22 06:27 Eosinophils # 0.3 k/uL (0-0.7) 09/28/22 06:27 Basophils # 0.1 k/uL (0-0.2) 09/28/22 06:27 Sodium 141 mmol/L (137-145) 09/28/22 06:27 Potassium 3.9 mmol/L (3.5-5.1) 09/28/22 06:27 Chloride 107 mmol/L (98-107) 09/28/22 06:27 Carbon Dioxide 25 mmol/L (22-30) 09/28/22 06:27 Anion Gap 9 mmol/L 09/28/22 06:27 BUN 10 mg/dL (9-20) 09/28/22 06:27 Creatinine 0.62 mg/dL (0.66-1.25) L 09/28/22 06:27 Est GFR (CKD-EPI)AfAm >90 (>60 ml/min/1.73 sqM) 09/28/22 06:27 Est GFR (CKD-EPI)NonAf >90 (>60 ml/min/1.73 sqM) 09/28/22 06:27 Glucose 98 mg/dL (74-99) 09/28/22 06:[address] Glu mg/dL 123 mg/dL 09/27/22 10:01 Hemoglobin A1c 5.9 % (<=6.0) 09/27/22 10:01 Calcium 8.5 mg/dL (8.4-10.2) 09/28/22 06:27 Total Bilirubin 0.3 mg/dL (0.2-1.3) 09/28/22 06:27 Conjugated Bilirubin 0.0 mg/dL (0.0-0.3) 09/28/22 06:27 Unconjugated Bilirubin 0.2 mg/dL (0.0-1.1) 09/28/22 06:27 Delta Bilirubin 0.1 mg/dL (0.0-0.2) 09/28/22 06:27 AST 17 U/L (17-59) 09/28/22 06:27 ALT 16 U/L (4-49) 09/28/22 06:27 Alkaline Phosphatase 90 U/L (38-126) 09/28/22 06:27 Total Protein 5.8 g/dL (6.3-8.2) L 09/28/22 06:27 Albumin 3.3 g/dL (3.5-5.0) L 09/28/22 06:27 Triglycerides 164.00 mg/dL (0.00-149.00) H 09/28/22 06:27 Cholesterol 161.00 mg/dL (0.00-200.00) 09/28/22 06:27 LDL Cholesterol, Calc 89.5 mg/dL (0.0-131.0) 09/28/22 06:27 VLDL Cholesterol, Calc 32.80 mg/dL (5.00-40.00) 09/28/22 06:27 HDL Cholesterol 38.70 mg/dL (40.00-60.00) L 09/28/22 06:27 Cholesterol/HDL Ratio 4.16 Ratio 09/28/22 06:27 TSH 0.771 mIU/L (0.465-4.680) 09/28/22 06:27 Clozapine 606 ng/mL (200-700) 09/27/22 10:01 Norclozapine 299 ng/mL (200-700) 09/27/22 10:01 Coronavirus (PCR) Not Detected (Not Detectd) 09/27/22 04:44 Allergies Allergy/AdvReac Type Severity Reaction Status Date / Time No Known Allergies Allergy Verified 09/27/22 06:08 Patient Condition at Discharge: Stable Plan - Discharge Summary Discharge Rx Participant: Yes New Discharge Prescriptions: New cloZAPine [Clozaril] 200 mg PO HS 30 Days #60 tab DULoxetine HCL [Cymbalta] 90 mg PO DAILY 30 Days #90 cap Continue metFORMIN HCL [Glucophage] 500 mg PO BID-W/MEALS 15 Days tab Simvastatin [Zocor] 40 mg PO DAILY@1600 Gabapentin [Neurontin] 600 mg PO TID HYDROcodone/APAP 5-325MG [[place] 5-325] 1 tab PO Q6HR PRN PRN Reason: Pain Nicotine 7Mg/24Hr Patch [Habitrol] 1 patch TRANSDERM DAILY 14 Days patch Melatonin 5 mg PO HS 30 Days tablet Acetaminophen Tab [Tylenol] 650 mg PO Q4HR PRN tab PRN Reason: Pain/Discomfort clonazePAM [KlonoPIN] 1 mg PO BID PRN 14 Days tab PRN Reason: Anxiety Discontinued cloZAPine [Clozaril] 225 mg PO HS 30 Days tab DULoxetine HCL [Cymbalta] 90 mg PO DAILY 30 Days capsule.dr Discharge Medication List metFORMIN HCL [Glucophage] 500 mg PO BID-W/MEALS 15 Days tab 12/02/14 [Rx] Simvastatin [Zocor] 40 mg PO DAILY@1600 09/22/15 [History] Gabapentin [Neurontin] 600 mg PO TID 06/01/18 [History] HYDROcodone/APAP 5-325MG [[place] 5-325] 1 tab PO Q6HR PRN 06/01/18 [History] Acetaminophen Tab [Tylenol] 650 mg PO Q4HR PRN tab 09/13/19 [Rx] Melatonin 5 mg PO HS 30 Days tablet 09/13/19 [Rx] Nicotine 7Mg/24Hr Patch [Habitrol] 1 patch TRANSDERM DAILY 14 Days patch 09/13/19 [Rx] clonazePAM [KlonoPIN] 1 mg PO BID PRN 14 Days tab 09/13/19 [Rx] DULoxetine HCL [Cymbalta] 90 mg PO DAILY 30 Days #90 cap 09/30/22 [Rx] cloZAPine [Clozaril] 200 mg PO HS 30 Days #60 tab 09/30/22 [Rx] Follow up Appointment(s)/Referral(s): [facility] [Outside] - 09/30/22 12:00 pm (09/30/2022 12:00PM - 1:00PM JAVIER COREY 10/04/2022 1:00PM - 1:30PM MICHAEL ROBERTS 10/05/2022 9:45AM - 9:50AM [facility]) Natividad Moon, [STAFF PHYSICIAN] - 1-2 days Activity/Diet/Wound Care/Special Instructions: Avoid the use of street drugs and alcohol. Take all medications as prescribed. When you are in need of refills on your medications, please contact your medical provider and/or outpatient psychiatrist to have this done. Please go to scheduled outpatient appointments for aftercare treatment. If symptoms return or become worse, call the crisis line at and/or go to the nearest emergency room for evaluation. Discharge Disposition: HOME SELF-CARE
== END 2022-09-30 12:14 | disposition home or self-care (01) | DRG 885 ==
LOC: EC 01:21 → 3MHU 06:00
PROVIDERS: ADMIT Psychiatry & Neurology Psychiatry; ATTEND Psychiatry & Neurology Psychiatry
DX: F25.1 Schizoaffective disorder, depressive type (principal); R45.851 Suicidal ideations; F11.20 Opioid dependence, uncomplicated; R33.9 Retention of urine, unspecified; G47.00 Insomnia, unspecified; F17.210 Nicotine dependence, cigarettes, uncomplicated; F41.0 Panic disorder [episodic paroxysmal anxiety]; E11.9 Type 2 diabetes mellitus without complications; E78.5 Hyperlipidemia, unspecified; N40.1 Benign prostatic hyperplasia with lower urinary tract symptoms; R33.8 Other retention of urine; Z79.84 Long term (current) use of oral hypoglycemic drugs; Z79.899 Other long term (current) drug therapy; Z80.42 Family history of malignant neoplasm of prostate; Z81.8 Family history of other mental and behavioral disorders; Z71.51 Drug abuse counseling and surveillance of drug abuser; Z20.822 Contact with and (suspected) exposure to COVID-19; Z28.21 Immunization not carried out because of patient refusal
CPT/HCPCS: 51798; 80053; 80061; 80159; 82075; 82248; 83036; 84443; 85025; 87635; 99285

== ENCOUNTER → 2022-10-21 | Outpatient (CLI) | payer MEDICARE, MEDICAID ==
[2022-10-22 09:26] LABS: Clozapine (Clozaril) 568 ng/mL (200-700); Norclozapine 344 ng/mL (200-700)
== END | disposition home or self-care (01) ==
LOC: LABWHC1 15:39
PROVIDERS: ATTEND Psychiatry & Neurology Psychiatry
DX: F25.1 Schizoaffective disorder, depressive type (principal); Z79.899 Other long term (current) drug therapy
CPT/HCPCS: 36415; 80159

== ENCOUNTER → 2023-11-24 | Outpatient (CLI) | payer MEDICARE, OTHER | END | disposition home or self-care (01) | LOC: LABWHC1 11:36 | DX: Z51.81 Encounter for therapeutic drug level monitoring (principal); Z79.899 Other long term (current) drug therapy | CPT/HCPCS: 36415; 80061; 82947; 83036; 85025 ==

== ENCOUNTER 2024-01-13 06:31 | Emergency (ER) | payer MEDICARE, OTHER ==
[2024-01-13 06:42] VITALS: BP 120/69; PULSE 93; RESP 18; TEMP 97.9
--- NOTE | 2024-01-13 06:45 | ED ---
General Adult HPI - General Chief complaint: Extremity Injury, Lower Stated complaint: Foot pain Time Seen by Provider: 01/13/24 06:45 Source: patient, RN notes reviewed Mode of arrival: ambulatory - History of Present Illness Initial comments: 63-year-old male with history of schizophrenia and chronic pain presents to the emergency department with his father for chief complaint of bilateral chronic foot pain. Patient is prescribed [place] fives by his primary care provider, Dr. Moon, and is requesting a refill for this medication as he does not see his primary care provider until Tuesday. Patient states that he normally takes medications prescribed however he may have taken an extra few tablets throughout the month. - Related Data Home Medications Medication Instructions Recorded Confirmed Simvastatin [Zocor] 40 mg PO DAILY@1600 09/22/15 09/27/22 Gabapentin [Neurontin] 600 mg PO TID 06/01/18 09/27/22 HYDROcodone/APAP 5-325MG [[place] 1 tab PO Q6HR PRN 06/01/18 09/27/22 5-325] Previous Rx's Medication Instructions Recorded metFORMIN HCL [Glucophage] 500 mg PO BID-W/MEALS 15 Days tab 12/02/14 Acetaminophen Tab [Tylenol] 650 mg PO Q4HR PRN tab 09/13/19 Melatonin 5 mg PO HS 30 Days tablet 09/13/19 Nicotine 7Mg/24Hr Patch [Habitrol] 1 patch TRANSDERM DAILY 14 Days 09/13/19 patch clonazePAM [KlonoPIN] 1 mg PO BID PRN 14 Days tab 09/13/19 DULoxetine HCL [Cymbalta] 90 mg PO DAILY 30 Days #90 cap 09/30/22 cloZAPine [Clozaril] 200 mg PO HS 30 Days #60 tab 09/30/22 Allergies Allergy/AdvReac Type Severity Reaction Status Date / Time No Known Allergies Allergy Verified 01/13/24 06:42 Review of Systems ROS Statement: Those systems with pertinent positive or pertinent negative responses have been documented in the HPI. ROS Other: All systems not noted in ROS Statement are negative. Past Medical History Past Medical History: GERD/Reflux, Hyperlipidemia, Prostate Disorder History of Any Multi-Drug Resistant Organisms: None Reported Past Surgical History: Tonsillectomy Past Anesthesia/Blood Transfusion Reactions: No Reported Reaction Past Psychological History: Anxiety, Depression, Panic Disorder, Schizoaffective Disorder, Schizophrenia Smoking Status: Current every day smoker Past Alcohol Use History: Occasional Past Drug Use History: None Reported - Past Family History Mother Family Medical History: Hypertension Father Family Medical History: Cancer Additional Family Medical History / Comment(s): PROSTATE CA, HEART VALVE REPLACEMENT General Exam General appearance: alert, in no apparent distress ENT exam: Present: normal exam, mucous membranes moist Neck exam: Present: normal inspection. Absent: tenderness, meningismus, lymphadenopathy Respiratory exam: Present: normal lung sounds bilaterally. Absent: respiratory distress, wheezes, rales, rhonchi, stridor Cardiovascular Exam: Present: regular rate, normal rhythm, normal heart sounds. Absent: systolic murmur, diastolic murmur, rubs, gallop, clicks GI/Abdominal exam: Present: soft, normal bowel sounds. Absent: distended, tenderness, guarding, rebound, rigid Extremities exam: Present: normal inspection, full ROM, normal capillary refill, other (bilateral LE foot pain, no acute findings on examination). Absent: tenderness, pedal edema, joint swelling, calf tenderness Back exam: Present: normal inspection Skin exam: Present: warm, dry, intact, normal color. Absent: rash Course Vital Signs 01/13/24 06:32 Temperature 97.9 F Pulse Rate 93 Respiratory 18 Rate Blood Pressure 120/69 O2 Sat by Pulse 98 Oximetry Medical Decision Making - Medical Decision Making Was pt. sent in by a medical professional or institution (, PA, TOE STAPLER, urgent care, hospital, or senior living...) When possible be specific @ -No Did you speak to anyone other than the patient for history (EMS, parent, family, police, friend...)? What history was obtained from this source @ -I spoke to the patient's father at bedside and states that the patient acts "crazy "when he is off of his pain medications and states that he sometimes takes more than he has prescribed. Did you review nursing and triage notes (agree or disagree)? Why? @ -Agree with the nursing triage notes. It is noted that patient is having suicidal ideations. On my discussion with the patient he is currently denying suicidal ideations or thoughts of wanting to harm himself. Asked the question to the patient multiple times if he has thoughts of wanting to harm himself he states no. He states that when his pain becomes so bad he has thoughts of wanting to however he does not want to harm himself or kill himself. Were old charts reviewed (outside hosp., previous admission, EMS record, old EKG, old radiological studies, urgent care reports/EKG's, senior living records)? Report findings @ -No old charts were reviewed Differential Diagnosis (chest pain, altered mental status, abdominal pain women, abdominal pain men, vaginal bleeding, weakness, fever, dyspnea, syncope, headache, dizziness, GI bleed, back pain, seizure, CVA, palpatations, mental health, musculoskeletal)? @ -Differential Musculoskeletal Muscular strain, contusion, ligament sprain, fracture, arthritis, septic arthritis, bursitis, cellulitis, muscle spasm, nerve compression, DVT, arterial occlusion, herpes zoster, electrolyte abnormality, tumor.... This is not meant to be in all inclusive list EKG interpreted by me (3pts min.). @ -none X-rays interpreted by me (1pt min.). @ -None done CT interpreted by me (1pt min.). @ -None done U/S interpreted by me (1pt. min.). @ -None done What testing was considered but not performed or refused? (CT, X-rays, U/S, labs)? Why? @ -X-ray imaging of bilateral lower extremities including feet was considered but deferred at this time. Patient has chronic ongoing pain and follows with his primary care provider for this and there are no acute changes to his chronic pain and there is minimal clinical concern for further pathology at this time. What meds were considered but not given or refused? Why? @ -None Did you discuss the management of the patient with other professionals (professionals i.e. , PA, TOE STAPLER, lab, RT, psych nurse, director social service, sap business analyst, teacher, supply officer, family independence case manager)? Give summary @ -No Was smoking cessation discussed for >3mins.? @ -No Was critical care preformed (if so, how long)? @ -No Were there social determinants of health that impacted care today? How? (Homelessness, low income, unemployed, alcoholism, drug addiction, transportation, low edu. Level, literacy, decrease access to med. care, skilled nursing, rehab)? @ -No Was there de-escalation of care discussed even if they declined (Discuss DNR or withdrawal of care, Hospice)? DNR status @ -No What co-morbidities impacted this encounter? (DM, HTN, Smoking, COPD, CAD, Cancer, CVA, ARF, Chemo, Hep., AIDS, mental health diagnosis, sleep apnea, morbid obesity)? @ -None Was patient admitted / discharged? Hospital course, mention meds given and route, prescriptions, significant lab abnormalities, going to OR and other pertinent info. @ -Discharged. 63-year-old male with chronic pain. Patient presents with his father for encounter for medication administration. Reviewed patient's prescription log where he was prescribed [facility] fives on 12/19/2023 for a 30-day supply and therefore patient is not within the window for refill of medication. Patient is provided with dose of the medication emergency department and informed of today's findings and instructed to continue to follow-up with his primary care provider as scheduled on Tuesday for further evaluation and refill of medication for chronic pain. All questions answered at bedside and strict return parameters as the patient the patient's father and they verbalized understanding. Case discussed with Dr. Moss Undiagnosed new problem with uncertain prognosis? @ -No Drug Therapy requiring intensive monitoring for toxicity (Heparin, Nitro, Insulin, Cardizem)? @ -No Were any procedures done? @ -No Diagnosis/symptom? @ -chronic pain, encounter for medication administration Acute, or Chronic, or Acute on Chronic? @ -chronic Uncomplicated (without systemic symptoms) or Complicated (systemic symptoms)? @ -Uncomplicated Side effects of treatment? @ -No Exacerbation, Progression, or Severe Exacerbation? @ -No Poses a threat to life or bodily function? How? (Chest pain, [place], [place], pneumonia, PE, COPD, DKA, ARF, appy, cholecystitis, CVA, Diverticulitis, Homicidal, Suicidal, threat to staff... and all critical care pts) @ -No Disposition Clinical Impression: Chronic pain, Encounter for medication administration Disposition: HOME SELF-CARE Condition: Good Instructions (If sedation given, give patient instructions): Arthralgia (ED) Additional Instructions: Please return to the Emergency Department if symptoms worsen or any other concerns. Recommend that you follow-up with your primary care provider as scheduled on Tuesday for further evaluation. Is patient prescribed a controlled substance at d/c from ED?: No Referrals: Jeff Moon MD [Primary Care Provider] - 1-2 days Time of Disposition: 07:15
[2024-01-13] MEDS: HYDROcodone/APAP 5-325MG 1 EACH TAB PO STA (07:06)
== END 2024-01-13 07:46 | disposition home or self-care (01) ==
LOC: EC 06:31
CPT/HCPCS: 99283

== ENCOUNTER 2024-01-21 01:22 | Emergency (ER) | payer MEDICARE, OTHER ==
[2024-01-21 01:27] VITALS: TEMP 97.7
--- NOTE | 2024-01-21 01:49 | ED ---
Male Urogenital HPI - General Chief complaint: Urogenital Stated complaint: Unable to urinate Time Seen by Provider: 01/21/24 01:49 Source: patient, RN notes reviewed Mode of arrival: ambulatory Limitations: no limitations - History of Present Illness Initial comments: 70-year-old male presented to ER with a chief complaint of urinary retention. Patient states he has not urinated since last night. He states he is a having mild lower abdominal tenderness as well. He states he took 3 Flomax and 2 Klonopin to see if that would help. He does report 1 prior incidence of this for which he has followed up with urology. He denies any fevers, chills, nausea, vomiting, constipation/diarrhea, peripheral edema, kidney disease or other complaints. - Related Data Home Medications Medication Instructions Recorded Confirmed Simvastatin [Zocor] 40 mg PO DAILY@1600 09/22/15 09/27/22 Gabapentin [Neurontin] 600 mg PO TID 06/01/18 09/27/22 HYDROcodone/APAP 5-325MG [Start 1 tab PO Q6HR PRN 06/01/18 09/27/22 5-325] Previous Rx's Medication Instructions Recorded metFORMIN HCL [Glucophage] 500 mg PO BID-W/MEALS 15 Days tab 12/02/14 Acetaminophen Tab [Tylenol] 650 mg PO Q4HR PRN tab 09/13/19 Melatonin 5 mg PO HS 30 Days tablet 09/13/19 Nicotine 7Mg/24Hr Patch [Habitrol] 1 patch TRANSDERM DAILY 14 Days 09/13/19 patch clonazePAM [KlonoPIN] 1 mg PO BID PRN 14 Days tab 09/13/19 DULoxetine HCL [Cymbalta] 90 mg PO DAILY 30 Days #90 cap 09/30/22 cloZAPine [Clozaril] 200 mg PO HS 30 Days #60 tab 09/30/22 Cephalexin [Keflex] 500 mg PO Q6HR #40 cap 01/21/24 Allergies Allergy/AdvReac Type Severity Reaction Status Date / Time No Known Allergies Allergy Verified 01/21/24 01:27 Review of Systems ROS Statement: Those systems with pertinent positive or pertinent negative responses have been documented in the HPI. ROS Other: All systems not noted in ROS Statement are negative. Past Medical History Past Medical History: GERD/Reflux, Hyperlipidemia, Prostate Disorder History of Any Multi-Drug Resistant Organisms: None Reported Past Surgical History: Tonsillectomy Past Anesthesia/Blood Transfusion Reactions: No Reported Reaction Past Psychological History: Anxiety, Depression, Panic Disorder, Schizoaffective Disorder, Schizophrenia Smoking Status: Current every day smoker Past Alcohol Use History: Occasional Past Drug Use History: None Reported - Past Family History Mother Family Medical History: Hypertension Father Family Medical History: Cancer Additional Family Medical History / Comment(s): PROSTATE CA, HEART VALVE REPLACEMENT General Exam Limitations: no limitations General appearance: alert, in no apparent distress Respiratory exam: Present: normal lung sounds bilaterally. Absent: respiratory distress, wheezes, rales, rhonchi, stridor Cardiovascular Exam: Present: regular rate, normal rhythm, normal heart sounds. Absent: systolic murmur, diastolic murmur, rubs, gallop, clicks GI/Abdominal exam: Present: soft, tenderness (lower abdomen), normal bowel sounds Neurological exam: Present: alert, oriented X3, CN II-XII intact Skin exam: Present: warm, dry, intact, normal color. Absent: rash Course Vital Signs 01/21/24 01:24 Temperature 97.7 F Pulse Rate 102 H Respiratory 18 Rate Blood Pressure 111/65 O2 Sat by Pulse 97 Oximetry Medical Decision Making - Medical Decision Making Was pt. sent in by a medical professional or institution (, PA, ACCESS SPEC, urgent care, hospital, or snf...) When possible be specific @ -No Did you speak to anyone other than the patient for history (EMS, parent, family, police, friend...)? What history was obtained from this source @ -No Did you review nursing and triage notes (agree or disagree)? Why? @ -I reviewed and agree with nursing and triage notes Were old charts reviewed (outside hosp., previous admission, EMS record, old EKG, old radiological studies, urgent care reports/EKG's, snf records)? Report findings @ -No old charts were reviewed Differential Diagnosis (chest pain, altered mental status, abdominal pain women, abdominal pain men, vaginal bleeding, weakness, fever, dyspnea, syncope, headache, dizziness, GI bleed, back pain, seizure, CVA, palpatations, mental health, musculoskeletal)? @ -Urinary retention, UTI, BPH This list is not meant to be all-inclusive EKG interpreted by me (3pts min.). @ -None done X-rays interpreted by me (1pt min.). @ -None done CT interpreted by me (1pt min.). @ -None done U/S interpreted by me (1pt. min.). @ -None done What testing was considered but not performed or refused? (CT, X-rays, U/S, labs)? Why? @ -None What meds were considered but not given or refused? Why? @ -None Did you discuss the management of the patient with other professionals (professionals i.e. , PA, ACCESS SPEC, lab, RT, psych nurse, health social work professor, sales enablement consultant, teacher, aoc plans intelligence officer chief, case supervisor)? Give summary @ -No Was smoking cessation discussed for >3mins.? @ -No Was critical care preformed (if so, how long)? @ -No Were there social determinants of health that impacted care today? How? (Homelessness, low income, unemployed, alcoholism, drug addiction, transportation, low edu. Level, literacy, decrease access to med. care, intermediate, rehab)? @ -No Was there de-escalation of care discussed even if they declined (Discuss DNR or withdrawal of care, Hospice)? DNR status @ -No What co-morbidities impacted this encounter? (DM, HTN, Smoking, COPD, CAD, Cancer, CVA, ARF, Chemo, Hep., AIDS, mental health diagnosis, sleep apnea, morbid obesity)? @ -None Was patient admitted / discharged? Hospital course, mention meds given and route, prescriptions, significant lab abnormalities, going to OR and other pertinent info. @ -Discharge. 63-year-old male presented to the ER with a chief complaint of urinary retention. History and physical exam completed. Vitals within normal limits. Patient in no signs of acute distress and nontoxic-appearing. Mild tenderness to palpation of lower abdomen. Normal bowel sounds. No rebound or guarding. Bladder scan showing 350 mL of retained urine. Snider catheter placed with approximately 350ml of output. Urine analysis concerning of infection with 24 WBCs and moderate leukocyte esterases. Patient will be started on Keflex for UTI. Urine sent for culture. Patient will be discharged with Snider catheter in place and advised to follow-up with urology within 1 week for further evaluation. Urology referral given. Strict return parameters discussed. Patient discharged stable condition. Patient verbally expressed understanding and agreement with care plan. Case discussed with ED attending, Dr. Wallis. Undiagnosed new problem with uncertain prognosis? @ -No Drug Therapy requiring intensive monitoring for toxicity (Heparin, Nitro, Insulin, Cardizem)? @ -No Were any procedures done? @ -No Diagnosis/symptom? @ -Urinary retention/UTI Acute, or Chronic, or Acute on Chronic? @ -Acute Uncomplicated (without systemic symptoms) or Complicated (systemic symptoms)? @ -Uncomplicated Side effects of treatment? @ -No Exacerbation, Progression, or Severe Exacerbation? @ -No Poses a threat to life or bodily function? How? (Chest pain, [place], [place], pneumonia, PE, COPD, DKA, ARF, appy, cholecystitis, CVA, Diverticulitis, Homicidal, Suicidal, threat to staff... and all critical care pts) @ -No - Lab Data Lab Results 01/21/24 Range/Units 01:53 Urine Color Yellow Urine Appearance Clear (Clear) Urine pH 5.5 (5.0-8.0) Ur Specific Stanton 1.034 (1.001-1.035) Urine Protein Trace H (Negative) Urine Glucose (UA) Negative (Negative) Urine Ketones Trace H (Negative) Urine Blood Negative (Negative) Urine Nitrite Negative (Negative) Urine Bilirubin Negative (Negative) Urine Urobilinogen 3.0 (<2.0) mg/dL Ur Leukocyte Esterase Moderate H (Negative) Urine RBC 4 (0-5) /hpf Urine WBC 24 H (0-5) /hpf Urine Mucus Few H (None) /hpf Disposition Clinical Impression: Urinary tract infection, Urinary retention Disposition: HOME SELF-CARE Condition: Stable Instructions (If sedation given, give patient instructions): Urinary Retention in Men (ED), Urinary Tract Infection in Men (ED) Additional Instructions: Follow-up with urology within 1 week. Complete full course of antibiotics. I recommended increased water intake and hydration. Return to the ER for any new or worsening concerns. Prescriptions: Cephalexin [Keflex] 500 mg PO Q6HR #40 cap Is patient prescribed a controlled substance at d/c from ED?: No Referrals: Jeff Moon MD [Primary Care Provider] - 1-2 days Al Otero MD [STAFF PHYSICIAN] - 1-2 days Time of Disposition: 02:39
[2024-01-21 02:32] LABS: Appearance,Urine Clear (Clear); Bilirubin,Urine Negative (Negative); Blood,Urine Negative (Negative); Color,Urine Yellow; Glucose,Urine (UA) Negative (Negative); Ketones,Urine Trace (Negative); Leukocyte Esterase,Urine Moderate (Negative); Mucus,Urine Few /hpf; Nitrite,Urine Negative (Negative); PH, Urine 5.5 (5.0-8.0); Protein,Urine Trace (Negative); RBC,Urine 4 /hpf (0-5); Specific Gravity,Urine 1.034 (1.001-1.035); WBC,Urine 24 /hpf (0-5)
[2024-01-21] MEDS: CEPHALEXIN 500 MG CAP PO STA (02:43)
[2024-01-21 02:47] VITALS: BP 126/78; PULSE 86; RESP 16
== END 2024-01-21 02:49 | disposition home or self-care (01) ==
LOC: EC 01:22
CPT/HCPCS: 51702; 81001; 87077; 87086; 87186; 99283

== ENCOUNTER 2024-01-28 19:43 | Emergency (ER) | payer MEDICARE, OTHER ==
[2024-01-28 19:53] VITALS: RESP 18; TEMP 98.5
--- NOTE | 2024-01-28 20:20 | ED ---
Male Urogenital HPI - General Chief complaint: Urogenital Stated complaint: cath issue Time Seen by Provider: 01/28/24 19:56 Source: patient Mode of arrival: ambulatory Limitations: no limitations - History of Present Illness Initial comments: This is a 63-year-old male with history of BPH presenting with Snider catheter issue. Patient was seen in this ER on 01/21/2024 where a Snider catheter was initiated due to urinary retention. Patient was also discovered to have a UTI and started on Keflex. Patient states the tubing to his Snider catheter became tangled and coiled causing issues with drainage. Patient endorses upcoming urology appointment this Tuesday. Patient denies any other issues urinary problems or symptoms. MD Complaint: other (Catheterization) Onset/Timin -: days(s) - Related Data Home Medications Medication Instructions Recorded Confirmed Simvastatin [Zocor] 40 mg PO DAILY@1600 09/22/15 09/27/22 Gabapentin [Neurontin] 600 mg PO TID 06/01/18 09/27/22 HYDROcodone/APAP 5-325MG [[place] 1 tab PO Q6HR PRN 06/01/18 09/27/22 5-325] Previous Rx's Medication Instructions Recorded metFORMIN HCL [Glucophage] 500 mg PO BID-W/MEALS 15 Days tab 12/02/14 Acetaminophen Tab [Tylenol] 650 mg PO Q4HR PRN tab 09/13/19 Melatonin 5 mg PO HS 30 Days tablet 09/13/19 Nicotine 7Mg/24Hr Patch [Habitrol] 1 patch TRANSDERM DAILY 14 Days 09/13/19 patch clonazePAM [KlonoPIN] 1 mg PO BID PRN 14 Days tab 09/13/19 DULoxetine HCL [Cymbalta] 90 mg PO DAILY 30 Days #90 cap 09/30/22 cloZAPine [Clozaril] 200 mg PO HS 30 Days #60 tab 09/30/22 Cephalexin [Keflex] 500 mg PO Q6HR #40 cap 01/21/24 Allergies Allergy/AdvReac Type Severity Reaction Status Date / Time No Known Allergies Allergy Verified 01/28/24 19:53 Review of Systems ROS Statement: Those systems with pertinent positive or pertinent negative responses have been documented in the HPI. ROS Other: All systems not noted in ROS Statement are negative. Past Medical History Past Medical History: GERD/Reflux, Hyperlipidemia, Prostate Disorder History of Any Multi-Drug Resistant Organisms: None Reported Past Surgical History: Tonsillectomy Past Anesthesia/Blood Transfusion Reactions: No Reported Reaction Past Psychological History: Anxiety, Depression, Panic Disorder, Schizoaffective Disorder, Schizophrenia Smoking Status: Current every day smoker Past Alcohol Use History: Occasional Past Drug Use History: None Reported - Past Family History Mother Family Medical History: Hypertension Father Family Medical History: Cancer Additional Family Medical History / Comment(s): PROSTATE CA, HEART VALVE REPLACEMENT General Exam Limitations: no limitations General appearance: alert, in no apparent distress Head exam: Present: atraumatic, normocephalic, normal inspection Eye exam: Present: normal appearance, PERRL, EOMI. Absent: scleral icterus, conjunctival injection, periorbital swelling ENT exam: Present: normal exam, mucous membranes moist Neck exam: Present: normal inspection. Absent: tenderness, meningismus, lymphadenopathy Respiratory exam: Present: normal lung sounds bilaterally. Absent: respiratory distress, wheezes, rales, rhonchi, stridor Cardiovascular Exam: Present: regular rate, normal rhythm, normal heart sounds. Absent: systolic murmur, diastolic murmur, rubs, gallop, clicks GI/Abdominal exam: Present: soft, normal bowel sounds. Absent: distended, tenderness, guarding, rebound, rigid Extremities exam: Present: normal inspection, full ROM, normal capillary refill. Absent: tenderness, pedal edema, joint swelling, calf tenderness Back exam: Present: normal inspection Neurological exam: Present: alert, oriented X3, CN II-XII intact Psychiatric exam: Present: normal affect, normal mood Skin exam: Present: warm, dry, intact, normal color. Absent: rash Course Vital Signs 01/28/24 01/28/24 19:51 20:33 Temperature 98.5 F Pulse Rate 94 82 Respiratory 18 18 Rate Blood Pressure 116/75 136/86 O2 Sat by Pulse 97 97 Oximetry Medical Decision Making - Medical Decision Making Was pt. sent in by a medical professional or institution (CASSIDY Herbert, TRANSMISSION AND COORDINATION ENGINEER, urgent care, hospital, or longterm...) When possible be specific @ -[No] Did you speak to anyone other than the patient for history (EMS, parent, family, police, friend...)? What history was obtained from this source @ -[No] Did you review nursing and triage notes (agree or disagree)? Why? @ -[I reviewed and agree with nursing and triage notes] Were old charts reviewed (outside hosp., previous admission, EMS record, old EKG, old radiological studies, urgent care reports/EKG's, longterm records)? Report findings @ -[No old charts were reviewed] Differential Diagnosis (chest pain, altered mental status, abdominal pain women, abdominal pain men, vaginal bleeding, weakness, fever, dyspnea, syncope, headache, dizziness, GI bleed, back pain, seizure, CVA, palpatations, mental health, musculoskeletal)? @ -BPH, Snider catheter obstruction, Snider catheter entanglement, UTI, acute cystitis EKG interpreted by me (3pts min.). @ -Not done X-rays interpreted by me (1pt min.). @ -[None done] CT interpreted by me (1pt min.). @ -[None done] U/S interpreted by me (1pt. min.). @ -[None done] What testing was considered but not performed or refused? (CT, X-rays, U/S, labs)? Why? @ -[None] What meds were considered but not given or refused? Why? @ -[None] Did you discuss the management of the patient with other professionals (professionals i.e. , PA, TRANSMISSION AND COORDINATION ENGINEER, lab, RT, psych nurse, social worker school, framing mill operator helper, t eacher, senior officer, business case analyst)? Give summary @ -[No] Was smoking cessation discussed for >3mins.? @ -[No] Was critical care preformed (if so, how long)? @ -[No] Were there social determinants of health that impacted care today? How? (Homelessness, low income, unemployed, alcoholism, drug addiction, transportation, low edu. Level, literacy, decrease access to med. care, fci, rehab)? @ -[No] Was there de-escalation of care discussed even if they declined (Discuss DNR or withdrawal of care, Hospice)? DNR status @ -[No] What co-morbidities impacted this encounter? (DM, HTN, Smoking, COPD, CAD, Cancer, CVA, ARF, Chemo, Hep., AIDS, mental health diagnosis, sleep apnea, morbid obesity)? @ -[None] Was patient admitted / discharged? Hospital course, mention meds given and route, prescriptions, significant lab abnormalities, going to OR and other pertinent info. @ -Discharge. Nurse replace Snider catheter with shorter length tubing. Bladder scan reveals maximum of 33 mL in bladder. Patient advised to continue Keflex as prescribed and follow-up with urology on Tuesday. Undiagnosed new problem with uncertain prognosis? @ -[No] Drug Therapy requiring intensive monitoring for toxicity (Heparin, Nitro, Insulin, Cardizem)? @ -[No] Were any procedures done? @ -[No] Diagnosis/symptom? @ -Snider catheter issue/entanglement Acute, or Chronic, or Acute on Chronic? @ -Acute Uncomplicated (without systemic symptoms) or Complicated (systemic symptoms)? @ -Uncomplicated Side effects of treatment? @ -[No] Exacerbation, Progression, or Severe Exacerbation? @ -[No] Poses a threat to life or bodily function? How? (Chest pain, [place], [place], pneumonia, PE, COPD, DKA, ARF, appy, cholecystitis, CVA, Diverticulitis, Homicidal, Suicidal, threat to staff... and all critical care pts) @ -[No] Disposition Clinical Impression: Snider catheter problem Disposition: HOME SELF-CARE Condition: Good Is patient prescribed a controlled substance at d/c from ED?: No Referrals: Jeff Moon MD [Primary Care Provider] - 1-2 days Time of Disposition: 20:20
[2024-01-28 20:34] VITALS: BP 136/86; PULSE 82
== END 2024-01-28 20:34 | disposition home or self-care (01) ==
LOC: EC 19:43
CPT/HCPCS: 99283

== ENCOUNTER 2024-03-25 02:27 | Emergency (ER) | payer MEDICARE, OTHER ==
[2024-03-25 02:33] VITALS: TEMP 97.6
--- NOTE | 2024-03-25 04:30 | ED ---
General Adult HPI - General Chief complaint: Urogenital Stated complaint: Urinary Retention Time Seen by Provider: 03/25/24 04:02 Source: patient Mode of arrival: ambulatory Limitations: no limitations - History of Present Illness Initial comments: Patient is a 63-year-old gentleman with a history of enlarged prostate presenting today for difficulty urinating. Is not sure what time he urinated out last night the last time patient was able to pass urine was sometime yesterday. He endorses suprapubic pain prior to Snider catheter being placed here. Also notes constipation. Is not taking anything at home for constipation and request an enema. Last BM yesterday. States he is supposed to have a TURP performed by urology due to persistent issues with urinary retention from his enlarged prostate. He does endorse some burning with urination denies urinary frequency. Denies fevers nausea vomiting or chills. Denies additional complaints today. Denies any recent injuries or back pain. - Related Data Home Medications Medication Instructions Recorded Confirmed Simvastatin [Zocor] 40 mg PO DAILY@1600 09/22/15 09/27/22 Gabapentin [Neurontin] 600 mg PO TID 06/01/18 09/27/22 HYDROcodone/APAP 5-325MG [[place] 1 tab PO Q6HR PRN 06/01/18 09/27/22 5-325] Previous Rx's Medication Instructions Recorded metFORMIN HCL [Glucophage] 500 mg PO BID-W/MEALS 15 Days tab 12/02/14 Acetaminophen Tab [Tylenol] 650 mg PO Q4HR PRN tab 09/13/19 Melatonin 5 mg PO HS 30 Days tablet 09/13/19 Nicotine 7Mg/24Hr Patch [Habitrol] 1 patch TRANSDERM DAILY 14 Days 09/13/19 patch clonazePAM [KlonoPIN] 1 mg PO BID PRN 14 Days tab 09/13/19 DULoxetine HCL [Cymbalta] 90 mg PO DAILY 30 Days #90 cap 09/30/22 cloZAPine [Clozaril] 200 mg PO HS 30 Days #60 tab 09/30/22 Cephalexin [Keflex] 500 mg PO Q6HR #40 cap 01/21/24 Cephalexin [Keflex] 500 mg PO Q6HR 10 Days #40 cap 03/25/24 Allergies Allergy/AdvReac Type Severity Reaction Status Date / Time No Known Allergies Allergy Verified 01/28/24 19:53 Review of Systems ROS Statement: Those systems with pertinent positive or pertinent negative responses have been documented in the HPI. ROS Other: All systems not noted in ROS Statement are negative. Past Medical History Past Medical History: GERD/Reflux, Hyperlipidemia, Prostate Disorder History of Any Multi-Drug Resistant Organisms: None Reported Past Surgical History: Tonsillectomy Past Anesthesia/Blood Transfusion Reactions: No Reported Reaction Past Psychological History: Anxiety, Depression, Panic Disorder, Schizoaffective Disorder, Schizophrenia Smoking Status: Current every day smoker Past Alcohol Use History: Occasional Past Drug Use History: None Reported - Past Family History Mother Family Medical History: Hypertension Father Family Medical History: Cancer Additional Family Medical History / Comment(s): PROSTATE CA, HEART VALVE REPLACEMENT General Exam - General Exam Comments Initial Comments: PE: CONSTITUTIONAL: No apparent distress, well appearing SKIN: Warm, dry, no jaundice, hives or petechiae EYES: Pupils are equally round, extraocular movements intact without nystagmus, clear conjunctiva, non-icteric sclera HENT: Normocephalic, atraumatic, moist mucus membranes, oropharynx clear without exudates NECK: , Full range of motion, normal appearance PULMONARY: Clear to auscultation without wheezes, rhonchi, or rales, normal excursion, no accessory muscle use and no stridor CARDIOVASCULAR: Regular rate, rhythm, normal S1 and S2. No appreciated murmurs, rubs or gallops. Strong radial pulses with intact distal perfusion. No lower extremity edema GASTROINTESTINAL: Soft, active bowel sounds throughout, non-tender, non- distended, no palpable masses, no rebound or guarding. No hepatosplenomegaly GENITOURINARY: MUSCULOSKELETAL: Extremities have no gross deformity, no edema, redness, or swelling. No calf swelling NEUROLOGIC:_a/o x 3, GCS 15, normal mentation and speech. Moves all extremities x 4 without motor or sensory deficit PSYCHIATRIC:_normal mood and affect, thought process is clear and linear Limitations: no limitations Course Vital Signs 03/25/24 03/25/24 02:31 06:59 Temperature 97.6 F Pulse Rate 106 H 89 Respiratory 18 16 Rate Blood Pressure 109/79 115/71 O2 Sat by Pulse 98 98 Oximetry Medical Decision Making - Medical Decision Making Was pt. sent in by a medical professional or institution (, PA, CRUISE STAFF MEMBER, urgent care, hospital, or residential...) When possible be specific @ -No Did you speak to anyone other than the patient for history (EMS, parent, family, police, friend...)? What history was obtained from this source @ -No Did you review nursing and triage notes (agree or disagree)? Why? @ -I reviewed and agree with nursing and triage notes Were old charts reviewed (outside hosp., previous admission, EMS record, old EKG, old radiological studies, urgent care reports/EKG's, residential records)? Report findings @ -Medical record reviewed, patient last here in January 2024 for similar complaints Differential Diagnosis (chest pain, altered mental status, abdominal pain women, abdominal pain men, vaginal bleeding, weakness, fever, dyspnea, syncope, headache, dizziness, GI bleed, back pain, seizure, CVA, palpatations, mental health, musculoskeletal)? @Differential diagnose transmet however top considerations include UTI, acute cystitis, enlarged prostate, constipation EKG interpreted by me (3pts min.). @ -As above X-rays interpreted by me (1pt min.). @ -None done CT interpreted by me (1pt min.). @ -None done U/S interpreted by me (1pt. min.). @ -None done What testing was considered but not performed or refused? (CT, X-rays, U/S, labs)? Why? @ -None What meds were considered but not given or refused? Why? @ -None Did you discuss the management of the patient with other professionals (professionals i.e. , PA, CRUISE STAFF MEMBER, lab, RT, psych nurse, social sciences research scientist, technical support professional, teacher, first officer and flight instructor, porter sample case)? Give summary @ -No Was smoking cessation discussed for >3mins.? @ -No Was critical care preformed (if so, how long)? @ -No Were there social determinants of health that impacted care today? How? (Homelessness, low income, unemployed, alcoholism, drug addiction, transportation, low edu. Level, literacy, decrease access to med. care, longterm, rehab)? @ -No Was there de-escalation of care discussed even if they declined (Discuss DNR or withdrawal of care, Hospice)? @ -No What co-morbidities impacted this encounter? (DM, HTN, Smoking, COPD, CAD, Cancer, CVA, ARF, Chemo, Hep., AIDS, mental health diagnosis, sleep apnea, morbid obesity)? @ Prostamegaly Was patient admitted / discharged? Hospital course, mention meds given and route, prescriptions, significant lab abnormalities, going to OR and other pertinent info. @ Discharged- This is a pleasant 63-year-old gentleman with a history of enlarged prostate, presenting today for acute urinary retention. Hx of the same. Bladder scan showed 240 cc of urine in his bladder. Snider catheter was placed draining clear all urine. Sent for culture. Patient also endorsed constipation stating he last had a bowel movement yesterday and is requesting an enema. He denies any abdominal pain and has a benign abdominal exam. Fleets enema will be performed here. Ultimately patient we discharged for follow-up with urology patient is agreeable plan of care. UA w/ positive LE. Will be started on cephalexin. Patient was able successfully of a bowel movement. On reassessment resting com fortably. Updated pt to findings, plan for d/c with cephaexin and f/u with urology and directed him to begin taking miralax daily or constipation. In my medical judgment there is currently no evidence of an immediate life- threatening or surgical condition. Discharge is therefore indicated at this time. Discharge treatment instructions, follow up instructions, and appropriate emergency department return precautions were discussed with the patient and/or medical decision maker. Patient and/or medical decision maker expressed understanding of and agreed with the treatment plan, follow up instructions, and emergency department return precaution. All patient's and/or medical decision maker's questions were answered. Undiagnosed new problem with uncertain prognosis? @ -No Drug Therapy requiring intensive monitoring for toxicity (Heparin, Nitro, Insulin, Cardizem)? @ -No Were any procedures done? @ -No Diagnosis/symptom? @Urinary retention, constipation Acute, or Chronic, or Acute on Chronic? @Acute Uncomplicated (without systemic symptoms) or Complicated (systemic symptoms)? @Uncomplicated Side effects of treatment? @ -No Exacerbation, Progression, or Severe Exacerbation? @ -No Poses a threat to life or bodily function? How? (Chest pain, [place], [place], pneumonia, PE, COPD, DKA, ARF, appy, cholecystitis, CVA, Diverticulitis, Homicidal, Suicidal, threat to staff... and all critical care pts) @ -No - Lab Data Lab Results 03/25/24 Range/Units 03:57 Urine Color Yellow Urine Appearance Clear (Clear) Urine pH 5.5 (5.0-8.0) Ur Specific [place] 1.035 (1.001-1.035) Urine Protein Trace H (Negative) Urine Glucose (UA) Negative (Negative) Urine Ketones Trace H (Negative) Urine Blood Negative (Negative) Urine Nitrite Negative (Negative) Urine Bilirubin Negative (Negative) Urine Urobilinogen 2.0 (<2.0) mg/dL Ur Leukocyte Esterase Moderate H (Negative) Urine RBC 3 (0-5) /hpf Urine WBC 33 H (0-5) /hpf Uric Acid Crystals Occasional H (None) /hpf Amorphous Sediment Rare H (None) /hpf Urine Bacteria Few H (None) /hpf Hyaline Casts 15 H (0-2) /lpf Urine Mucus Moderate H (None) /hpf Disposition Clinical Impression: Urinary retention, Acute cystitis, Constipation Disposition: HOME SELF-CARE Condition: Good Instructions (If sedation given, give patient instructions): Urinary Tract Infection in Men (ED) Additional Instructions: Every disease is a spectrum and a small chance still exists that a serious condition could develop, for this reason, please monitor yourself closely for new, changing or worsening symptoms, no urine output into your Snider bag for greater than 8 hours, abdominal pain, swelling of your abdomen, no bowel movement for more than 5 days, fever, inability to tolerate/keep down fluids or your medications, inability to follow up with outpatient providers as instructed and should you experience these symptoms or should you have any further concerns for your wellbeing please return to the ED or call 911 immediately. Please take 1 capful of MiraLAX once daily so that you have stool consistency wet sand PLEASE call your primary care physician as soon as possible to arrange / discuss plan for followup appointment. Appointment in the next 1-3 days is strongly encouraged if possible. PLEASE let us know here before you leave if there is anything further we can do to be of any assistance. Take care and feel Better! Prescriptions: Cephalexin [Keflex] 500 mg PO Q6HR 10 Days #40 cap Is patient prescribed a controlled substance at d/c from ED?: No Referrals: Jeff Moon MD [Primary Care Provider] - 1-2 days
[2024-03-25 04:52] LABS: Amorphous Sediment,Urine Rare /hpf; Appearance,Urine Clear (Clear); Bacteria,Urine Few /hpf; Bilirubin,Urine Negative (Negative); Blood,Urine Negative (Negative); Color,Urine Yellow; Glucose,Urine (UA) Negative (Negative); Hyaline Casts,Urine 15 /lpf (0-2); Ketones,Urine Trace (Negative); Leukocyte Esterase,Urine Moderate (Negative); Mucus,Urine Moderate /hpf; Nitrite,Urine Negative (Negative); PH, Urine 5.5 (5.0-8.0); Protein,Urine Trace (Negative); RBC,Urine 3 /hpf (0-5); Specific Gravity,Urine 1.035 (1.001-1.035); Uric Acid Crystals,Urine Occasional /hpf; WBC,Urine 33 /hpf (0-5)
[2024-03-25] MEDS: NA PHOS,M-B/NA PHOS,DI-BA 133 ML ENEMA RECTAL STA (05:01)
[2024-03-25 07:00] VITALS: BP 115/71; PULSE 89; RESP 16
== END 2024-03-25 07:00 | disposition home or self-care (01) ==
LOC: EC 02:27
DX: N30.00 Acute cystitis without hematuria (principal); K59.00 Constipation, unspecified; R33.9 Retention of urine, unspecified; N40.0 Benign prostatic hyperplasia without lower urinary tract symptoms; F17.200 Nicotine dependence, unspecified, uncomplicated
CPT/HCPCS: 51702; 51798; 81001; 87077; 87086; 87186; 99283

== ENCOUNTER 2024-03-26 16:22 | Emergency (ER) | payer MEDICARE, OTHER ==
--- NOTE | 2024-03-26 18:20 | ED ---
General Adult HPI - General Chief complaint: Urogenital Stated complaint: Cath issue Time Seen by Provider: 03/26/24 16:34 Source: patient, RN notes reviewed Mode of arrival: ambulatory Limitations: no limitations - History of Present Illness Initial comments: Patient is a 63-year-old male present to the emergency department with concerns with his catheter. Patient had catheter placed recently. Patient does have some leaking around the catheter that is bothering him. Otherwise patient states there is no other complaints. Patient has no symptoms at this time. - Related Data Home Medications Medication Instructions Recorded Confirmed Simvastatin [Zocor] 40 mg PO DAILY@1600 09/22/15 09/27/22 Gabapentin [Neurontin] 600 mg PO TID 06/01/18 09/27/22 HYDROcodone/APAP 5-325MG [[place] 1 tab PO Q6HR PRN 06/01/18 09/27/22 5-325] Previous Rx's Medication Instructions Recorded metFORMIN HCL [Glucophage] 500 mg PO BID-W/MEALS 15 Days tab 12/02/14 Acetaminophen Tab [Tylenol] 650 mg PO Q4HR PRN tab 09/13/19 Melatonin 5 mg PO HS 30 Days tablet 09/13/19 Nicotine 7Mg/24Hr Patch [Habitrol] 1 patch TRANSDERM DAILY 14 Days 09/13/19 patch clonazePAM [KlonoPIN] 1 mg PO BID PRN 14 Days tab 09/13/19 DULoxetine HCL [Cymbalta] 90 mg PO DAILY 30 Days #90 cap 09/30/22 cloZAPine [Clozaril] 200 mg PO HS 30 Days #60 tab 09/30/22 Cephalexin [Keflex] 500 mg PO Q6HR #40 cap 01/21/24 Cephalexin [Keflex] 500 mg PO Q6HR 10 Days #40 cap 03/25/24 Allergies Allergy/AdvReac Type Severity Reaction Status Date / Time No Known Allergies Allergy Verified 03/26/24 16:30 Review of Systems ROS Statement: Those systems with pertinent positive or pertinent negative responses have been documented in the HPI. ROS Other: All systems not noted in ROS Statement are negative. Constitutional: Denies: fever Eyes: Denies: eye pain ENT: Denies: ear pain Cardiovascular: Denies: chest pain Gastrointestinal: Denies: abdominal pain, nausea, vomiting Genitourinary: Reports: as per HPI Musculoskeletal: Denies: back pain Past Medical History Past Medical History: GERD/Reflux, Hyperlipidemia, Prostate Disorder History of Any Multi-Drug Resistant Organisms: None Reported Past Surgical History: Tonsillectomy Past Anesthesia/Blood Transfusion Reactions: No Reported Reaction Past Psychological History: Anxiety, Depression, Panic Disorder, Schizoaffective Disorder, Schizophrenia Smoking Status: Current every day smoker Past Alcohol Use History: Occasional Past Drug Use History: None Reported - Past Family History Mother Family Medical History: Hypertension Father Family Medical History: Cancer Additional Family Medical History / Comment(s): PROSTATE CA, HEART VALVE REP LACEMENT General Exam Limitations: no limitations General appearance: alert, in no apparent distress Head exam: Present: normocephalic Eye exam: Present: normal appearance Neck exam: Present: normal inspection Respiratory exam: Present: normal lung sounds bilaterally Cardiovascular Exam: Present: regular rate, normal rhythm GI/Abdominal exam: Present: soft. Absent: distended, tenderness, guarding, rebound, rigid exam: Present: normal inspection. Absent: testicular tenderness, scrotal swelling Extremities exam: Present: normal inspection Neurological exam: Present: alert Psychiatric exam: Present: normal affect, normal mood Skin exam: Present: normal color Course Vital Signs 03/26/24 16:27 Temperature 97.8 F Pulse Rate 104 H Respiratory 17 Rate Blood Pressure 105/73 O2 Sat by Pulse 99 Oximetry Medical Decision Making - Medical Decision Making Was pt. sent in by a medical professional or institution (CASSIDY Herbert, STATISTICAL DEVELOPER, urgent care, hospital, or custodial...) When possible be specific @ -No Did you speak to anyone other than the patient for history (EMS, parent, family, police, friend...)? What history was obtained from this source @ -Family is present helps provide history of patient seeing a urologist and has planned procedure Did you review nursing and triage notes (agree or disagree)? Why? @ -I reviewed and agree with nursing and triage notes Were old charts reviewed (outside hosp., previous admission, EMS record, old EKG, old radiological studies, urgent care reports/EKG's, custodial records)? Report findings @ -Urine culture partially resulted for gram-negative bacilli Differential Diagnosis (chest pain, altered mental status, abdominal pain women, abdominal pain men, vaginal bleeding, weakness, fever, dyspnea, syncope, headache, dizziness, GI bleed, back pain, seizure, CVA, palpatations, mental health, musculoskeletal)? @ -Differential Abdominal Pain Men: Appendicitis, cholecystitis, diverticulosis, ischemic bowel, pancreatitis, hepatitis, UTI, gastroenteritis, AAA, incarcerated hernia, bowel obstruction, constipation, inflammatory bowel, hepatitis, peptic ulcer disease, splenic infarction, perforated viscus, testicular torsion, this is not meant to be an all-inclusive list EKG interpreted by me (3pts min.). @ -As above X-rays interpreted by me (1pt min.). @ -None done CT interpreted by me (1pt min.). @ -None done U/S interpreted by me (1pt. min.). @ -None done What testing was considered but not performed or refused? (CT, X-rays, U/S, labs)? Why? @ -Considered urine testing however this is already in progress What meds were considered but not given or refused? Why? @ -None Did you discuss the management of the patient with other professionals (elizabeth rahman i.e. , PA, STATISTICAL DEVELOPER, lab, RT, psych nurse, social science analyst, divorce lawyer, teacher, ground nuclear weapons assembly officer, rifle case repairer)? Give summary @ -No Was smoking cessation discussed for >3mins.? @ -No Was critical care preformed (if so, how long)? @ -No Were there social determinants of health that impacted care today? How? (Homelessness, low income, unemployed, alcoholism, drug addiction, transportation, low edu. Level, literacy, decrease access to med. care, fci, rehab)? @ -No Was there de-escalation of care discussed even if they declined (Discuss DNR or withdrawal of care, Hospice)? DNR status @ -No What co-morbidities impacted this encounter? (DM, HTN, Smoking, COPD, CAD, Cancer, CVA, ARF, Chemo, Hep., AIDS, mental health diagnosis, sleep apnea, morbid obesity)? @ -None Was patient admitted / discharged? Hospital course, mention meds given and route, prescriptions, significant lab abnormalities, going to OR and other pertinent info. @ -Patient presents with problems with his catheter. This has been replaced and patient feels great. Patient reevaluated and remains symptom-free. Patient will be discharged with follow-up with urology. Recommended close follow-up for urine culture results Undiagnosed new problem with uncertain prognosis? @ -No Drug Therapy requiring intensive monitoring for toxicity (Heparin, Nitro, Insulin, Cardizem)? @ -No Were any procedures done? @ -No Diagnosis/symptom? @ -Snider catheter dysfunction Acute, or Chronic, or Acute on Chronic? @ -Acute Uncomplicated (without systemic symptoms) or Complicated (systemic symptoms)? @ -Default Side effects of treatment? @ -No Exacerbation, Progression, or Severe Exacerbation? @ -No Poses a threat to life or bodily function? How? (Chest pain, [place], [place], pneumonia, PE, COPD, DKA, ARF, appy, cholecystitis, CVA, Diverticulitis, Homicidal, Suicidal, threat to staff... and all critical care pts) @ -No Disposition Clinical Impression: Malfunction of Snider catheter Disposition: HOME SELF-CARE Condition: Stable Instructions (If sedation given, give patient instructions): Urinary Tract Infection in Men (ED), Snider Catheter Placement and Care (ED) Additional Instructions: Please do follow-up with your primary care physician in the next day or 2 for recheck. Please also follow-up with your urologist. Have them check urine culture results that may be available tomorrow. Return for pain, fever, no urine output, worsening symptoms or any other concerns Is patient prescribed a controlled substance at d/c from ED?: No Referrals: Jeff Moon MD [Primary Care Provider] - 1-2 days Kiel Pedroza MD [STAFF PHYSICIAN] - 1-2 days Time of Disposition: 18:20
[2024-03-26 18:25] VITALS: BP 109/68; PULSE 96; RESP 18; TEMP 98
== END 2024-03-26 18:25 | disposition home or self-care (01) ==
LOC: EC 16:22
DX: T83.098A Other mechanical complication of other urinary catheter, initial encounter (principal); F17.200 Nicotine dependence, unspecified, uncomplicated
CPT/HCPCS: 51702; 99283

== ENCOUNTER 2024-04-06 15:00 | Emergency (ER) | payer MEDICARE, OTHER ==
[2024-04-06 15:18] VITALS: TEMP 98.3
--- NOTE | 2024-04-06 16:38 | ED ---
Male Urogenital HPI - General Chief complaint: Urogenital Stated complaint: catheter is leaking Time Seen by Provider: 04/06/24 15:17 Source: patient, family, RN notes reviewed Mode of arrival: ambulatory Limitations: no limitations - History of Present Illness Initial comments: This is a 63-year-old male with history of prostate issues presenting with leakage of Snider catheter for 2 days. Patient states he recently had his Snider changed 2 weeks ago with no issues until yesterday. Also mentions some pain around the head of his penis. States he has been constipated for the past 5 days and is requesting assistance for this as well. Denies fever, chills, dysuria, hematuria, back pain. MD Complaint: other Onset/Timin -: days(s) Location: penis, abdomen Radiation: none Worsens with: palpation, movement indwelling catheter Reports: incontinence - Related Data Home Medications Medication Instructions Recorded Confirmed Simvastatin [Zocor] 40 mg PO DAILY@1600 09/22/15 09/27/22 Gabapentin [Neurontin] 600 mg PO TID 06/01/18 09/27/22 HYDROcodone/APAP 5-325MG [[place] 1 tab PO Q6HR PRN 06/01/18 09/27/22 5-325] Previous Rx's Medication Instructions Recorded metFORMIN HCL [Glucophage] 500 mg PO BID-W/MEALS 15 Days tab 12/02/14 Acetaminophen Tab [Tylenol] 650 mg PO Q4HR PRN tab 09/13/19 Melatonin 5 mg PO HS 30 Days tablet 09/13/19 Nicotine 7Mg/24Hr Patch [Habitrol] 1 patch TRANSDERM DAILY 14 Days 09/13/19 patch clonazePAM [KlonoPIN] 1 mg PO BID PRN 14 Days tab 09/13/19 DULoxetine HCL [Cymbalta] 90 mg PO DAILY 30 Days #90 cap 09/30/22 cloZAPine [Clozaril] 200 mg PO HS 30 Days #60 tab 09/30/22 Cephalexin [Keflex] 500 mg PO Q6HR #40 cap 01/21/24 Cephalexin [Keflex] 500 mg PO Q6HR 10 Days #40 cap 03/25/24 Allergies Allergy/AdvReac Type Severity Reaction Status Date / Time No Known Allergies Allergy Verified 03/26/24 16:30 Review of Systems ROS Statement: Those systems with pertinent positive or pertinent negative responses have been documented in the HPI. ROS Other: All systems not noted in ROS Statement are negative. Past Medical History Past Medical History: GERD/Reflux, Hyperlipidemia, Prostate Disorder History of Any Multi-Drug Resistant Organisms: None Reported Past Surgical History: Tonsillectomy Past Anesthesia/Blood Transfusion Reactions: No Reported Reaction Past Psychological History: Anxiety, Depression, Panic Disorder, Schizoaffective Disorder, Schizophrenia Smoking Status: Current every day smoker Past Alcohol Use History: Occasional Past Drug Use History: None Reported - Past Family History Mother Family Medical History: Hypertension Father Family Medical History: Cancer Additional Family Medical History / Comment(s): PROSTATE CA, HEART VALVE REPLACEMENT General Exam Limitations: no limitations General appearance: alert, in no apparent distress Head exam: Present: atraumatic, normocephalic, normal inspection Eye exam: Present: normal appearance, PERRL, EOMI. Absent: scleral icterus, conjunctival injection, periorbital swelling ENT exam: Present: normal exam, mucous membranes moist Neck exam: Present: normal inspection. Absent: tenderness, meningismus, lymphadenopathy Respiratory exam: Present: normal lung sounds bilaterally. Absent: respiratory distress, wheezes, rales, rhonchi, stridor Cardiovascular Exam: Present: regular rate, normal rhythm, normal heart sounds. Absent: systolic murmur, diastolic murmur, rubs, gallop, clicks GI/Abdominal exam: Present: soft, tenderness (Mild suprapubic tenderness without guarding), normal bowel sounds. Absent: distended, guarding, rebound, rigid exam: Present: normal inspection (Mild erythema around external urethra. Negative balanitis), circumcision. Absent: testicular tenderness, urethral discharge Extremities exam: Present: normal inspection, full ROM, normal capillary refill. Absent: tenderness, pedal edema, joint swelling, calf tenderness Back exam: Present: normal inspection Neurological exam: Present: alert, oriented X3, CN II-XII intact Psychiatric exam: Present: normal affect, normal mood Skin exam: Present: warm, dry, intact, normal color. Absent: rash Course Vital Signs 04/06/24 15:16 Temperature 98.3 F Pulse Rate 92 Respiratory 16 Rate Blood Pressure 105/75 O2 Sat by Pulse 98 Oximetry Medical Decision Making - Medical Decision Making Was pt. sent in by a medical professional or institution (, PA, PLANT PRODUCTION WORKER, urgent care, hospital, or senior care...) When possible be specific @ -[No] Did you speak to anyone other than the patient for history (EMS, parent, family, police, friend...)? What history was obtained from this source @ -[No] Did you review nursing and triage notes (agree or disagree)? Why? @ -[I reviewed and agree with nursing and triage notes] Were old charts reviewed (outside hosp., previous admission, EMS record, old EKG, old radiological studies, urgent care reports/EKG's, senior care records)? Report findings @ -[No old charts were reviewed] Differential Diagnosis (chest pain, altered mental status, abdominal pain women, abdominal pain men, vaginal bleeding, weakness, fever, dyspnea, syncope, headache, dizziness, GI bleed, back pain, seizure, CVA, palpatations, mental health, musculoskeletal)? @ -Differential Abdominal Pain Men: Appendicitis, cholecystitis, diverticulosis, ischemic bowel, pancreatitis, hepatitis, UTI, gastroenteritis, AAA, incarcerated hernia, bowel obstruction, constipation, inflammatory bowel, hepatitis, peptic ulcer disease, splenic infarction, perforated viscus, testicular torsion, this is not meant to be an all-inclusive list EKG interpreted by me (3pts min.). @ -Not done X-rays interpreted by me (1pt min.). @ -[None done] CT interpreted by me (1pt min.). @ -[None done] U/S interpreted by me (1pt. min.). @ -[None done] What testing was considered but not performed or refused? (CT, X-rays, U/S, labs)? Why? @ -[None] What meds were considered but not given or refused? Why? @ -[None] Did you discuss the management of the patient with other professionals (professionals i.e. , PA, PLANT PRODUCTION WORKER, lab, RT, psych nurse, social worker health services, kettle coordinator, teacher, national insurance officer, mental health case manager)? Give summary @ -[No] Was smoking cessation discussed for >3mins.? @ -[No] Was critical care preformed (if so, how long)? @ -[No] Were there social determinants of health that impacted care today? How? (Homelessness, low income, unemployed, alcoholism, drug addiction, transportation, low edu. Level, literacy, decrease access to med. care, longterm, rehab)? @ -[No] Was there de-escalation of care discussed even if they declined (Discuss DNR or withdrawal of care, Hospice)? DNR status @ -[No] What co-morbidities impacted this encounter? (DM, HTN, Smoking, COPD, CAD, Cancer, CVA, ARF, Chemo, Hep., AIDS, mental health diagnosis, sleep apnea, morbid obesity)? @ -[None] Was patient admitted / discharged? Hospital course, mention meds given and route, prescriptions, significant lab abnormalities, going to OR and other pertinent info. @ -[hospital course] Undiagnosed new problem with uncertain prognosis? @ -[No] Drug Therapy requiring intensive monitoring for toxicity (Heparin, Nitro, Insulin, Cardizem)? @ -[No] Were any procedures done? @ -[No] Diagnosis/symptom? @ -[default] Acute, or Chronic, or Acute on Chronic? @ -Acute Uncomplicated (without systemic symptoms) or Complicated (systemic symptoms)? @ -Uncomplicated Side effects of treatment? @ -[No] Exacerbation, Progression, or Severe Exacerbation? @ -[No] Poses a threat to life or bodily function? How? (Chest pain, [place], [place], pneumonia, PE, COPD, DKA, ARF, appy, cholecystitis, CVA, Diverticulitis, Homicidal, Suicidal, threat to staff... and all critical care pts) @ -[No] - Lab Data Lab Results 04/06/24 Range/Units 16:39 Urine Color Light Red Urine Appearance Cloudy (Clear) Urine pH 5.5 (5.0-8.0) Ur Specific [place] 1.033 (1.001-1.035) Urine Protein 2+ H (Negative) Urine Glucose (UA) Negative (Negative) Urine Ketones 1+ H (Negative) Urine Blood Large H (Negative) Urine Nitrite Negative (Negative) Urine Bilirubin Negative (Negative) Urine Urobilinogen <2.0 (<2.0) mg/dL Ur Leukocyte Esterase Trace H (Negative) Urine RBC >182 H (0-5) /hpf Urine WBC 29 H (0-5) /hpf Ur Squamous Epith Cells <1 (0-4) /hpf Urine Mucus Moderate H (None) /hpf Disposition Clinical Impression: Snider catheter problem, Constipation Disposition: HOME SELF-CARE Condition: Good Instructions (If sedation given, give patient instructions): Snider Catheter Placement and Care (ED), Constipation (ED) Is patient prescribed a controlled substance at d/c from ED?: No Referrals: Jeff Moon MD [Primary Care Provider] - 1-2 days Time of Disposition: 19:16
[2024-04-06 17:30] LABS: Appearance,Urine Cloudy (Clear); Bilirubin,Urine Negative (Negative); Blood,Urine Large (Negative); Color,Urine Light Red; Glucose,Urine (UA) Negative (Negative); Ketones,Urine 1+ (Negative); Leukocyte Esterase,Urine Trace (Negative); Mucus,Urine Moderate /hpf; Nitrite,Urine Negative (Negative); PH, Urine 5.5 (5.0-8.0); Protein,Urine 2+ (Negative); RBC,Urine >182 /hpf (0-5); Specific Gravity,Urine 1.033 (1.001-1.035); Squamous Epithelial Cell,Urine <1 /hpf (0-4); Urobilinogen,Urine <2.0 mg/dL (<2.0); WBC,Urine 29 /hpf (0-5)
[2024-04-06] MEDS: NA PHOS,M-B/NA PHOS,DI-BA 133 ML ENEMA RECTAL STA (18:14)
[2024-04-06 19:24] VITALS: BP 110/76; PULSE 90; RESP 18
== END 2024-04-06 19:33 | disposition home or self-care (01) ==
LOC: EC 15:00
DX: T83.031A Leakage of indwelling urethral catheter, initial encounter (principal); K59.00 Constipation, unspecified; F17.200 Nicotine dependence, unspecified, uncomplicated
CPT/HCPCS: 51702; 81001; 87086; 99283

== ENCOUNTER 2024-04-10 13:44 | Emergency (ER) | payer MEDICARE, OTHER ==
[2024-04-10 14:26] VITALS: RESP 18; TEMP 98
--- NOTE | 2024-04-10 15:45 | ED ---
Male Urogenital HPI - General Chief complaint: Urogenital Stated complaint: catheter leaking Time Seen by Provider: 04/10/24 15:44 Source: patient, RN notes reviewed Mode of arrival: ambulatory Limitations: no limitations - History of Present Illness Initial comments: Quick [id number] male with history of enlarged prostate presenting for Snider catheter issues. States Snider was placed 1 week ago and has had multiple ER visits for replacement of Snider due to pain. States he would like Snider catheter removed today due to pain. Has follow-up with urologist in 8 days. - Related Data Home Medications Medication Instructions Recorded Confirmed Simvastatin [Zocor] 40 mg PO DAILY@1600 09/22/15 09/27/22 Gabapentin [Neurontin] 600 mg PO TID 06/01/18 09/27/22 HYDROcodone/APAP 5-325MG [[place] 1 tab PO Q6HR PRN 06/01/18 09/27/22 5-325] Previous Rx's Medication Instructions Recorded metFORMIN HCL [Glucophage] 500 mg PO BID-W/MEALS 15 Days tab 12/02/14 Acetaminophen Tab [Tylenol] 650 mg PO Q4HR PRN tab 09/13/19 Melatonin 5 mg PO HS 30 Days tablet 09/13/19 Nicotine 7Mg/24Hr Patch [Habitrol] 1 patch TRANSDERM DAILY 14 Days 09/13/19 patch clonazePAM [KlonoPIN] 1 mg PO BID PRN 14 Days tab 09/13/19 DULoxetine HCL [Cymbalta] 90 mg PO DAILY 30 Days #90 cap 09/30/22 cloZAPine [Clozaril] 200 mg PO HS 30 Days #60 tab 09/30/22 Cephalexin [Keflex] 500 mg PO Q6HR #40 cap 01/21/24 Cephalexin [Keflex] 500 mg PO Q6HR 10 Days #40 cap 03/25/24 Allergies Allergy/AdvReac Type Severity Reaction Status Date / Time No Known Allergies Allergy Verified 04/10/24 14:23 Review of Systems ROS Statement: Those systems with pertinent positive or pertinent negative responses have been documented in the HPI. ROS Other: All systems not noted in ROS Statement are negative. Past Medical History Past Medical History: GERD/Reflux, Hyperlipidemia, Prostate Disorder History of Any Multi-Drug Resistant Organisms: None Reported Past Surgical History: Tonsillectomy Past Anesthesia/Blood Transfusion Reactions: No Reported Reaction Past Psychological History: Anxiety, Depression, Panic Disorder, Schizoaffective Disorder, Schizophrenia Smoking Status: Current every day smoker Past Alcohol Use History: Occasional Past Drug Use History: None Reported - Past Family History Mother Family Medical History: Hypertension Father Family Medical History: Cancer Additional Family Medical History / Comment(s): PROSTATE CA, HEART VALVE REPLACE MENT General Exam - General Exam Comments Initial Comments: Visual Physical Exam Vital signs reviewed General: Well-appearing, nontoxic, no acute distress. Head: Normocephalic, atraumatic Eyes: PERRLA, EOMI ENT: Airway patent Chest: Nonlabored breathing Skin: No visual rash, normal skin tone Neuro: Alert and oriented 3 Musculoskeletal: No gross abnormalities Limitations: no limitations Course Vital Signs 04/10/24 14:23 Temperature 98 F Pulse Rate 86 Respiratory 18 Rate Blood Pressure 106/69 O2 Sat by Pulse 98 Oximetry Medical Decision Making - Medical Decision Making I completed the quick note portion of this chart signed Mery Kidd PA-C Disposition Referrals: Jeff Moon MD [Primary Care Provider] - 1-2 days
--- NOTE | 2024-04-10 16:29 | ED ---
General Adult HPI - General Chief complaint: Urogenital Stated complaint: catheter leaking Time Seen by Provider: 04/10/24 15:44 Source: patient, family, RN notes reviewed Mode of arrival: ambulatory Limitations: no limitations - History of Present Illness Initial comments: Patient is a 64-year-old male presenting to the emergency department with concer ns for problems with his catheter. Patient does have some occasional leaking around it however mostly complains of discomfort. Patient states he has had this problem since the catheter has originally been placed. Patient does see urology and has plans for surgical procedure in 8 days. Patient request pain medication. Patient also request having his catheter changed. - Related Data Home Medications Medication Instructions Recorded Confirmed Simvastatin [Zocor] 40 mg PO DAILY@1600 09/22/15 09/27/22 Gabapentin [Neurontin] 600 mg PO TID 06/01/18 09/27/22 HYDROcodone/APAP 5-325MG [[place] 1 tab PO Q6HR PRN 06/01/18 09/27/22 5-325] Previous Rx's Medication Instructions Recorded metFORMIN HCL [Glucophage] 500 mg PO BID-W/MEALS 15 Days tab 12/02/14 Acetaminophen Tab [Tylenol] 650 mg PO Q4HR PRN tab 09/13/19 Melatonin 5 mg PO HS 30 Days tablet 09/13/19 Nicotine 7Mg/24Hr Patch [Habitrol] 1 patch TRANSDERM DAILY 14 Days 09/13/19 patch clonazePAM [KlonoPIN] 1 mg PO BID PRN 14 Days tab 09/13/19 DULoxetine HCL [Cymbalta] 90 mg PO DAILY 30 Days #90 cap 09/30/22 cloZAPine [Clozaril] 200 mg PO HS 30 Days #60 tab 09/30/22 Cephalexin [Keflex] 500 mg PO Q6HR #40 cap 01/21/24 Cephalexin [Keflex] 500 mg PO Q6HR 10 Days #40 cap 03/25/24 Fluconazole [Diflucan] 150 mg PO DAILY #14 tab 04/10/24 Allergies Allergy/AdvReac Type Severity Reaction Status Date / Time No Known Allergies Allergy Verified 04/10/24 14:23 Review of Systems ROS Statement: Those systems with pertinent positive or pertinent negative responses have been documented in the HPI. ROS Other: All systems not noted in ROS Statement are negative. Constitutional: Denies: fever Eyes: Denies: eye pain ENT: Denies: ear pain Respiratory: Denies: dyspnea Cardiovascular: Denies: chest pain Gastrointestinal: Denies: abdominal pain Genitourinary: Reports: as per HPI Past Medical History Past Medical History: GERD/Reflux, Hyperlipidemia, Prostate Disorder History of Any Multi-Drug Resistant Organisms: None Reported Past Surgical History: Tonsillectomy Past Anesthesia/Blood Transfusion Reactions: No Reported Reaction Past Psychological History: Anxiety, Depression, Panic Disorder, Schizoaffective Disorder, Schizophrenia Smoking Status: Current every day smoker Past Alcohol Use History: Occasional Past Drug Use History: None Reported - Past Family History Mother Family Medical History: Hypertension Father Family Medical History: Cancer Additional Family Medical History / Comment(s): PROSTATE CA, HEART VALVE REPLACEMENT General Exam Limitations: no limitations General appearance: alert, in no apparent distress Head exam: Present: normocephalic Eye exam: Present: normal appearance Neck exam: Present: normal inspection Respiratory exam: Present: normal lung sounds bilaterally Cardiovascular Exam: Present: regular rate, normal rhythm GI/Abdominal exam: Present: soft. Absent: distended, tenderness, guarding, rebound, rigid exam: Present: normal inspection, other (Snider catheter in place). Absent: testicular tenderness, scrotal swelling Extremities exam: Present: normal inspection Neurological exam: Present: alert Psychiatric exam: Present: normal affect, normal mood Skin exam: Present: normal color Course Vital Signs 04/10/24 14:23 Temperature 98 F Pulse Rate 86 Respiratory 18 Rate Blood Pressure 106/69 O2 Sat by Pulse 98 Oximetry Medical Decision Making - Medical Decision Making MDM back was pt. sent in by a medical professional or institution (, PA, TRANSFER CLERK, urgent care, hospital, or half-way...) When possible be specific @ -No Did you speak to anyone other than the patient for history (EMS, parent, family, police, friend...)? What history was obtained from this source @ -Family is present and helps provide history including planned procedure Did you review nursing and triage notes (agree or disagree)? Why? @ -I reviewed and agree with nursing and triage notes Were old charts reviewed (outside hosp., previous admission, EMS record, old EKG, old radiological studies, urgent care reports/EKG's, half-way records)? Report findings @ -Previous urine culture reviewed with concern for infection with Karla Differential Diagnosis (chest pain, altered mental status, abdominal pain women, abdominal pain men, vaginal bleeding, weakness, fever, dyspnea, syncope, headache, dizziness, GI bleed, back pain, seizure, CVA, palpatations, mental health, musculoskeletal)? @ -Not applicable EKG interpreted by me (3pts min.). @ -As above X-rays interpreted by me (1pt min.). @ -None done CT interpreted by me (1pt min.). @ -None done U/S interpreted by me (1pt. min.). @ -None done What testing was considered but not performed or refused? (CT, X-rays, U/S, labs)? Why? @ -None What meds were considered but not given or refused? Why? @ -Considered Ditropan or Pyridium however patient wants actual pain medication and will be given a Tylenol 3 starter pack Did you discuss the management of the patient with other professionals (professionals i.e. , PA, TRANSFER CLERK, lab, RT, psych nurse, public health social worker, mortgage loan officer, teacher, money position officer, case management director)? Give summary @ -No Was smoking cessation discussed for >3mins.? @ -No Was critical care preformed (if so, how long)? @ -No Were there social determinants of health that impacted care today? How? (Homelessness, low income, unemployed, alcoholism, drug addiction, transportation, low edu. Level, literacy, decrease access to med. care, custodial, rehab)? @ -No Was there de-escalation of care discussed even if they declined (Discuss DNR or withdrawal of care, Hospice)? DNR status @ -No What co-morbidities impacted this encounter? (DM, HTN, Smoking, COPD, CAD, Cancer, CVA, ARF, Chemo, Hep., AIDS, mental health diagnosis, sleep apnea, morbid obesity)? @ -History of urinary retention Was patient admitted / discharged? Hospital course, mention meds given and route, prescriptions, significant lab abnormalities, going to OR and other pertinent info. @ -Patient and family present with urinary retention and concerns for catheter problems. This will be switched per their request. Patient will be prescribed Diflucan and provided Tylenol 3 started. Recommended they call the urologist in the next 1 or 2 days. Undiagnosed new problem with uncertain prognosis? @ -No Drug Therapy requiring intensive monitoring for toxicity (Heparin, Nitro, Insulin, Cardizem)? @ -No Were any procedures done? @ -No Diagnosis/symptom? @ -Urinary retention, urinary tract infection Acute, or Chronic, or Acute on Chronic? @ -Acute on chronic, acute Uncomplicated (without systemic symptoms) or Complicated (systemic symptoms)? @ -Default Side effects of treatment? @ -No Exacerbation, Progression, or Severe Exacerbation? @ -No Poses a threat to life or bodily function? How? (Chest pain, [place], [place], pneumonia, PE, COPD, DKA, ARF, appy, cholecystitis, CVA, Diverticulitis, Homicidal, Suicidal, threat to staff... and all critical care pts) @ -No Disposition Clinical Impression: Urinary retention, Urinary tract infection Disposition: HOME SELF-CARE Condition: Stable Instructions (If sedation given, give patient instructions): Urinary Tract Infection in Men (ED), Urinary Retention in Men (ED) Additional Instructions: Please call your urologist in the next 1 to 2 days for recheck. Please follow- up with them soon as possible as well as your primary care physician. Prescription sent to pharmacy. Return for increased pain, fever, worsening or changing symptoms or other concerns. Prescriptions: Fluconazole [Diflucan] 150 mg PO DAILY #14 tab Is patient prescribed a controlled substance at d/c from ED?: No Referrals: Jeff Moon MD [Primary Care Provider] - 1-2 days Al Otero MD [STAFF PHYSICIAN] - 1-2 days Time of Disposition: 16:28
[2024-04-10] MEDS: ACET/COD 300 MG/30 MG STARTER PACK 6 TAB BTL PO STA (16:35)
[2024-04-10] MEDS: FLUCONAZOLE 100 MG TAB PO ONE (16:35)
[2024-04-10 17:01] VITALS: BP 110/74; PULSE 81
== END 2024-04-10 16:59 | disposition home or self-care (01) ==
LOC: EC 13:44
DX: N39.0 Urinary tract infection, site not specified (principal); R33.9 Retention of urine, unspecified; F17.200 Nicotine dependence, unspecified, uncomplicated
CPT/HCPCS: 51702; 99283

== ENCOUNTER → 2024-04-18 | Outpatient (CLI) | payer MEDICARE, OTHER ==
[2024-04-18 15:03] LABS: Basophils # (A) 0.06 X 10*3/uL (0.00-0.10); Basophils % (A) 0.7 %; Eosinophils # (A) 0.33 X 10*3/uL (0.04-0.35); Eosinophils % (A) 3.7 %; HCT 41.5 % (39.6-50.0); Lymphocytes # (A) 2.82 X 10*3/uL (0.90-5.00); Lymphocytes % (A) 31.4 %; MCH 27.1 pg (27.0-32.0); MCHC 31.3 g/dL (32.0-37.0); MCV 86.6 FL (80.0-97.0); Mean Platelet Volume 12.8 FL (9.5-12.2); Monocytes # (A) 0.85 X 10*3/uL (0.20-1.00); Monocytes % (A) 9.5 %; NRBC Per 100 WBC 0 X 10*3/uL (0.00-0.01); Neutrophils # (A) 4.86 X 10*3/uL (1.80-7.70); Neutrophils % (A) 54.1 %; Platelet Count 175 X 10*3/uL (140-440); RBC 4.79 X 10*6/uL (4.40-5.60); RDW 13.2 % (11.5-14.5); WBC 8.97 X 10*3/uL (4.50-10.00)
[2024-04-18 16:08] LABS: Anion Gap 11.6 mmol/L (4.00-12.00); BUN/Creat Ratio 14.75 Ratio (12.00-20.00); Blood Urea Nitrogen 11.8 mg/dL (9.0-27.0); Calcium 9.2 mg/dL (8.7-10.3); Carbon Dioxide 27.4 mmol/L (21.6-31.8); Potassium 4.4 mmol/L (3.5-5.5); Prostate Specific Antigen 0.41 ng/mL (0.000-4.500)
[2024-04-18 20:01] LABS: Appearance,Urine Clear (Clear); Bilirubin,Urine Negative (Negative); Blood,Urine Negative (Negative); Color,Urine Yellow (Yellow); Ketones,Urine Negative (Negative); Nitrite,Urine Negative (Negative); PH, Urine 5.5; Specific Gravity,Urine 1.015 (1.001-1.030)
[2024-04-18 20:16] LABS: Bacteria,Urine None Seen (None Seen)
== END | disposition home or self-care (01) ==
LOC: LABPAT 10:14
PROVIDERS: ATTEND Urology
DX: Z01.818 Encounter for other preprocedural examination (principal); N40.1 Benign prostatic hyperplasia with lower urinary tract symptoms
CPT/HCPCS: 80048; 81001; 84153; 85025; 87086

== ENCOUNTER 2024-04-24 06:04 | Day surgery (SDC) | payer MEDICARE, OTHER ==
--- NOTE | 2024-04-23 22:47 | P.HPIHPCON ---
History of Present Illness H&P Date: 04/24/24 Chief Complaint: BPH, urinary retention This is a 64-year-old male with history of BPH, patient has been having recurrent urinary retention secondary to prostatic enlargement. He is on Flomax twice daily. He underwent a cystoscopy that showed evidence of an occlusive prostate. Discussed with him the option of a TURP versus a UroLift. Risk and benefit of each approach were discussed in details. He agreed to proceed with a UroLift. Aware of the risk which includes but not limited to bleeding, infection, urinary incontinence, persistent symptoms. Risk of anesthesia was also discussed. He understood all the risk and agreed to proceed Consent for Procedure: I have explained the operation/procedure to the patient, including the risks, benefits, side effects, alternative therapies (including not receiving the proposed treatment or service), the likelihood of the patient achieving his/her goals, and potential recuperation problems for the procedure/sedation/analgesia, as well as any blood products, if indicated. I also explained to the patient the risks, benefits and side effects of the alternatives, as well as the risks related to not receiving the proposed procedure, care, treatment, or services. Past Medical History Past Medical History: Diabetes Mellitus, GERD/Reflux, Hyperlipidemia, Prostate Disorder Additional Past Medical History / Comment(s): BPH, difficulty urinating to have IDC removed today, Neuropathy in feet, History of Any Multi-Drug Resistant Organisms: None Reported Past Surgical History: Tonsillectomy Past Anesthesia/Blood Transfusion Reactions: No Reported Reaction Smoking Status: Current every day smoker - Past Family History Mother Family Medical History: COPD, Hypertension Father Family Medical History: Cancer Additional Family Medical History / Comment(s): PROSTATE CA, HEART VALVE REPLACEMENT Medications and Allergies Home Medications Medication Instructions Recorded Confirmed Type metFORMIN HCL [Glucophage] 500 mg PO BID-W/MEALS 15 Days tab 12/02/14 04/18/24 Rx Simvastatin [Zocor] 40 mg PO DAILY@1600 09/22/15 04/18/24 History HYDROcodone/APAP 5-325MG [[place] 1 tab PO Q6HR PRN 06/01/18 04/18/24 History 5-325] Acetaminophen Tab [Tylenol] 650 mg PO Q4HR PRN tab 09/13/19 04/18/24 Rx Melatonin 5 mg PO HS 30 Days tablet 09/13/19 04/18/24 Rx Fluconazole [Diflucan] 150 mg PO DAILY #14 tab 04/10/24 04/18/24 Rx DULoxetine HCL [Cymbalta] 60 mg PO DAILY 04/18/24 04/18/24 History Finasteride [Proscar] 5 mg PO DAILY 04/18/24 04/18/24 History Rosuvastatin [Crestor] 10 mg PO HS 04/18/24 04/18/24 History Tamsulosin [Flomax] 0.8 mg PO DAILY 04/18/24 04/18/24 History cloZAPine [Clozaril] 225 mg PO HS 04/18/24 04/18/24 History clonazePAM [KlonoPIN] 1 mg PO DAILY PRN 04/18/24 04/18/24 History Allergies Allergy/AdvReac Type Severity Reaction Status Date / Time No Known Allergies Allergy Verified 04/18/24 12:48 Surgical - Exam - General no distress, no pain - Eyes normal ocular movement, no pale - Respiratory normal expansion, normal respiratory effort - Abdomen Abdomen: soft, non tender Assessment and Plan Assessment: OR for UROLIFT
[2024-04-24] MEDS ORDERED: LIDOCAINE 1% (10MG/ML) FOR IV START INTRADERMA PRN (06:31)
[2024-04-24 06:56] LABS: Glucose,Whole Blood 128 mg/dL (70-110)
[2024-04-24] MEDS ORDERED: MIDAZOLAM 2 MG/2 ML VIAL IV PRN (07:00)
[2024-04-24] MEDS ORDERED: fentaNYL (PF) 50 MCG/ML 2 ML AMP IVP PRN (07:00)
[2024-04-24] MEDS ORDERED: HYDROmorphone 0.5 MG/0.5 ML SYRINGE IVP PRN (07:00)
[2024-04-24] MEDS: DEXAMETHASONE SOD PHOSPHATE 4 MG/ML 1 ML VIAL IV ONE (07:01)
[2024-04-24] MEDS: LACTATED RINGERS 1,000 ML IV SCH (07:01)
[2024-04-24] MEDS: ONDANSETRON 4 MG/2 ML VIAL IVP ONE (07:02)
[2024-04-24] MEDS: IV FLUID CONTINUATION 1,000 ML IV ONE (07:07)
[2024-04-24] MEDS ORDERED: fentaNYL (PF) 50 MCG/ML 2 ML AMP ONE (07:30)
[2024-04-24] MEDS ORDERED: LIDOCAINE 1% INJ 10MG/ML (20 ML MDV) ONE (07:30)
[2024-04-24] MEDS ORDERED: MIDAZOLAM 2 MG/2 ML VIAL ONE (07:30)
[2024-04-24] MEDS ORDERED: SUCCINYLCHOLINE CHLORIDE 200 MG/10 ML VIAL IV ONE (07:30)
[2024-04-24] MEDS ORDERED: PROPOFOL 10 MG/ML 20 ML VIAL IV ONE (07:30)
[2024-04-24] MEDS ORDERED: PHENYLEPHRINE-0.9% NACL SYG 1,000 MCG/10 ML SYRINGE ONE (07:30)
[2024-04-24] MEDS ORDERED: LIDOCAINE 4% LTA KIT (4 ML) TOPICAL ONE (07:30)
[2024-04-24 08:28] VITALS: RESP 16; TEMP 96.8
--- NOTE | 2024-04-24 08:49 | P.OP ---
Date of Procedure: 04/24/24 Preoperative Diagnosis: BPH Postoperative Diagnosis: Same Procedure(s) Performed: UroLift x 6 Implants: UroLift clips Anesthesia: PERRYA Surgeon: Miguel Asencio Estimated Blood Loss (ml): 10 Pathology: none sent Condition: stable Disposition: PACU Indications for Procedure: This is a 64-year-old male with history of BPH, patient has been having recurrent urinary retention secondary to prostatic enlargement. He is on Flomax twice daily. He underwent a cystoscopy that showed evidence of an occlusive prostate. Discussed with him the option of a TURP versus a UroLift. Risk and benefit of each approach were discussed in details. He agreed to proceed with a UroLift. Aware of the risk which includes but not limited to bleeding, infection, urinary incontinence, persistent symptoms. Risk of anesthesia was also discussed. He understood all the risk and agreed to proceed Operative Findings: Bilateral obstructive lateral lobes Description of Procedure: Patient brought to the operating room, general anesthesia was induced. He was prepped and draped in sterile fashion placed in a dorsolithotomy position. Cystoscopy through the 21 Tamazight sheath was inserted per urethra, cystoscopy was performed showed no abnormality within the bladder, the bladder was mildly trabeculated, patient had a bilateral enlarged lateral lobes of the prostate that were occlusive. Attention was then placed to the UroLift clips UroLift clips were placed within the prostate, clips were placed distal to the Veru but same proximal to the bladder neck, a total of 4 clips were placed on the left and 2 clips were placed on the right, and at the conclusion of the case patient had a wide open anterior channel, there was no evidence of clip perforation into the bladder or any evidence of any bone strikes. There was no evidence of bleeding. At this time the cystoscopy was withdrawn. The patient was awakened from anesthesia and taken to recovery in stable condition
[2024-04-24 09:16] VITALS: BP 153/81; PULSE 68
== END 2024-04-24 09:45 | disposition home or self-care (01) ==
LOC: OR 06:04
PROVIDERS: ATTEND Urology
DX: N40.1 Benign prostatic hyperplasia with lower urinary tract symptoms (principal); K21.9 Gastro-esophageal reflux disease without esophagitis; E11.40 Type 2 diabetes mellitus with diabetic neuropathy, unspecified; E78.5 Hyperlipidemia, unspecified; F32.A Depression, unspecified; F41.0 Panic disorder [episodic paroxysmal anxiety]; F17.210 Nicotine dependence, cigarettes, uncomplicated; Z90.79 Acquired absence of other genital organ(s); Z90.89 Acquired absence of other organs; Z82.49 Family history of ischemic heart disease and other diseases of the circulatory system; Z79.84 Long term (current) use of oral hypoglycemic drugs; Z79.899 Other long term (current) drug therapy
CPT/HCPCS: 52441 ×2; 52442 ×5; L8699; J2250; J0330; J1100; J0690; J2405; J2003; J3010; J2704; J2371

== ENCOUNTER 2024-08-03 01:37 | Emergency (ER) | payer MEDICARE, OTHER ==
[2024-08-03 01:46] VITALS: RESP 18
--- NOTE | 2024-08-03 02:05 | ED ---
Recheck HPI - General Source: patient, family, RN notes reviewed Mode of arrival: ambulatory Limitations: no limitations <Nanette Campa - Last Filed: 08/03/24 02:51> <Fozia Rudd - Last Filed: 08/03/24 06:36> - General Chief Complaint: Recheck/Abnormal Lab/Rx Stated Complaint: Headache Time Seen by Provider: 08/03/24 02:03 - History of Present Illness Initial Comments: 64 year old male presenting to the ER for evaluation of headache. He believes he may be withdrawing from his Burkett fives as he has been out of them for the past 2 days. His PCP is out of town which is limiting his ability to refill his prescription. He states the headache started today and is currently rating it a 9 out of 10. It is a pounding posterior headache. He denies any double blurry vision. He does report mild dizziness. He is only taking Klonopin for current symptoms. Patient denies any chest pain, shortness of breath, fevers, chills, nausea, vomiting, abdominal pain or urinary complaints. Upon speaking with patient he does admit to suicidal ideations. Denies plan. He states this been going on for the past year. Patient is unsure if he is having current suicidal thoughts. Denies any homicidal thoughts no other drug or alcohol use. Denies hallucinations (Nanette Campa) - Related Data Home Medications Medication Instructions Recorded Confirmed Simvastatin [Zocor] 40 mg PO DAILY@1600 09/22/15 04/24/24 HYDROcodone/APAP 5-325MG [Burkett 1 tab PO Q6HR PRN 06/01/18 04/24/24 5-325] DULoxetine HCL [Cymbalta] 60 mg PO DAILY 04/18/24 04/24/24 Finasteride [Proscar] 5 mg PO DAILY 04/18/24 04/24/24 Rosuvastatin [Crestor] 10 mg PO HS 04/18/24 04/24/24 Tamsulosin [Flomax] 0.8 mg PO DAILY 04/18/24 04/24/24 cloZAPine [Clozaril] 225 mg PO HS 04/18/24 04/24/24 clonazePAM [KlonoPIN] 1 mg PO DAILY PRN 04/18/24 04/24/24 Previous Rx's Medication Instructions Recorded metFORMIN HCL [Glucophage] 500 mg PO BID-W/MEALS 15 Days tab 12/02/ Acetaminophen Tab [Tylenol] 650 mg PO Q4HR PRN tab 09/13/19 Melatonin 5 mg PO HS 30 Days tablet 09/13/19 Fluconazole [Diflucan] 150 mg PO DAILY #14 tab 04/10/24 Cephalexin [Keflex] 500 mg PO Q8HR #15 cap 04/24/24 Cyclobenzaprine [Flexeril] 10 mg PO TID PRN 3 Days #10 tab 08/03/24 Lidocaine 5% Patch [Lidoderm 5% 1 patch TOPICAL DAILY PRN 3 Days 08/03/24 Patch] #3 patch Allergies Allergy/AdvReac Type Severity Reaction Status Date / Time No Known Allergies Allergy Verified 04/24/24 06:39 Review of Systems ROS Other: All systems not noted in ROS Statement are negative. <Nanette Campa - Last Filed: 08/03/24 02:51> ROS Other: All systems not noted in ROS Statement are negative. <Fozia Rudd - Last Filed: 08/03/24 06:36> ROS Statement: Those systems with pertinent positive or pertinent negative responses have been documented in the HPI. Past Medical History Past Medical History: GERD/Reflux, Hyperlipidemia, Prostate Disorder History of Any Multi-Drug Resistant Organisms: None Reported Past Surgical History: Tonsillectomy Past Anesthesia/Blood Transfusion Reactions: No Reported Reaction Past Psychological History: Anxiety, Depression, Panic Disorder, Schizoaffective Disorder, Schizophrenia Smoking Status: Current every day smoker Past Alcohol Use History: Occasional Past Drug Use History: None Reported - Past Family History Mother Family Medical History: COPD, Hypertension Father Family Medical History: Cancer Additional Family Medical History / Comment(s): PROSTATE CA, HEART VALVE REPLACEMENT <Nanette Campa - Last Filed: 08/03/24 02:51> General Exam Limitations: no limitations General appearance: alert, in no apparent distress Head exam: Present: atraumatic, normocephalic, normal inspection Eye exam: Present: normal appearance, PERRL, EOMI Pupils: Present: normal accommodation (2 mm pupils bilateral) Respiratory exam: Present: normal lung sounds bilaterally. Absent: respiratory distress, wheezes, rales, rhonchi, stridor Cardiovascular Exam: Present: regular rate, normal rhythm, normal heart sounds. Absent: systolic murmur, diastolic murmur, rubs, gallop, clicks Extremities exam: Present: normal inspection, full ROM, normal capillary refill. Absent: tenderness, pedal edema, joint swelling, calf tenderness Neurological exam: Present: alert, oriented X3, CN II-XII intact Skin exam: Present: warm, dry, intact, normal color. Absent: rash <Nanette Campa - Last Filed: 08/03/24 02:51> Course <Nanette Campa - Last Filed: 08/03/24 02:51> Vital Signs 08/03/24 08/03/24 08/03/24 01:40 02:42 06:01 Temperature 97.6 F 97.4 F L 98.1 F Pulse Rate 86 84 80 Respiratory 18 18 18 Rate Blood Pressure 147/74 150/80 154/78 O2 Sat by Pulse 97 98 99 Oximetry - Reevaluation(s) Reevaluation #1: 08/03/24 02:53 patient signed out to Dr. Rudd. (Nanette Campa) Medical Decision Making - Lab Data Result diagrams: 08/03/24 02:34 - EKG Data -: EKG Interpreted by Me <Nanette Campa - Last Filed: 08/03/24 02:51> - Lab Data Result diagrams: 08/03/24 02:34 08/03/24 02:34 <Fozia Rudd - Last Filed: 08/03/24 06:36> - Medical Decision Making Was pt. sent in by a medical professional or institution (, PA, PRODUCT INSPECTION COORDINATOR, urgent care, hospital, or fdc...) When possible be specific @ -No Did you speak to anyone other than the patient for history (EMS, parent, family, police, friend...)? What history was obtained from this source @ -No Did you review nursing and triage notes (agree or disagree)? Why? @ -I reviewed and agree with nursing and triage notes Were old charts reviewed (outside hosp., previous admission, EMS record, old EKG, old radiological studies, urgent care reports/EKG's, fdc records)? Report findings @ -No old charts were reviewed Differential Diagnosis (chest pain, altered mental status, abdominal pain women, abdominal pain men, vaginal bleeding, weakness, fever, dyspnea, syncope, headache, dizziness, GI bleed, back pain, seizure, CVA, palpatations, mental health, musculoskeletal)? @Differential Headache: Migraine, tension, cluster, carbon monoxide, central venous thrombosis, pension karma temporal arteritis, acute closure glaucoma, intercranial hemorrhage, mastoiditis, sinusitis, head injury, this is not meant to be an all-inclusive list. EKG interpreted by me (3pts min.). @ -As above X-rays interpreted by me (1pt min.). @ -None done CT interpreted by me (1pt min.). @ -pending U/S interpreted by me (1pt. min.). @ -None done What testing was considered but not performed or refused? (CT, X-rays, U/S, labs)? Why? @ -None What meds were considered but not given or refused? Why? @ -None Did you discuss the management of the patient with other professionals (professionals i.e. , PA, PRODUCT INSPECTION COORDINATOR, lab, RT, psych nurse, hospice social worker, online communications specialist, teacher, commissioned fire officer, caseworker)? Give summary @ -No Was smoking cessation discussed for >3mins.? @ -No Was critical care preformed (if so, how long)? @ -No Were there social determinants of health that impacted care today? How? (Homelessness, low income, unemployed, alcoholism, drug addiction, transportation, low edu. Level, literacy, decrease access to med. care, skilled nursing, rehab)? @ -No Was there de-escalation of care discussed even if they declined (Discuss DNR or withdrawal of care, Hospice)? DNR status @ -No What co-morbidities impacted this encounter? (DM, HTN, Smoking, COPD, CAD, Cancer, CVA, ARF, Chemo, Hep., AIDS, mental health diagnosis, sleep apnea, morbid obesity)? @ -None Was patient admitted / discharged? Hospital course, mention meds given and route, prescriptions, significant lab abnormalities, going to OR and other pe rtinent info. @ -64-year-old male presented the ER for evaluation of headache. Laboratory studies along with CT brain ordered. Symptomatic control with IV fluids, Tylenol and Benadryl. Patient signed out to Dr. Rudd pending results, EPS evaluation and disposition. (Nanette Campa) Patient is a 64-year-old gentleman past medical history of chronic pain presenting today for headache and right sided neck pain. Pt denies changes in vision, focal numbness or weakness, or stroke like symptoms. Patient was signed out to myself pending completion of CT brain and EPS evaluation. CT brain was negative for acute process. I personally reviewed CT scan I see no evidence of hemorrhage, mass effect or other acute process and I agree with radiologist interpretation. Patient was evaluated by EPS and cleared for discharge home. On my assessment patient is resting comfortably no acute distress. States that headache is similar to headaches he has suffered in the past. His father is with him and states he is concerned the patient is going through opiate withdrawal and they are here for a script for norco until pt can be seen by his PCP on Tuesday. Of note patient appears comfortable, is not tachycardic, no vomiting, and does not appear to have additional significant signs of opioid withdrawal beyond JULIO, . I reviewed pt's MAPS data and he filled a script for 120 tablets of norco-5's on 07/10/24. Pt states he is supposed to be taking them TID but admits to taking them more than prescribed, 4 times daily, based on the number of pills pt is prescribed, it appears he is taking them even more frequently than this. I discussed with the patient that it would not be appropriate for me to refill his norco prescription, especially as he is taking them more than prescribed he will receive a tablet of norco here prior to dc. Additionally, pt will be given flexeril and will be given a short script for flexeril to help with his neck pain over the course of the weekend. Pt and father agreeable with POC. Additionally, pt denies SI, HI, or hallucinations. In my medical judgment there is currently no evidence of an immediate life- threatening or surgical condition. Discharge is therefore indicated at this time. Discharge treatment instructions, follow up instructions, and appropriate emergency department return precautions were discussed with the patient and/or medical decision maker. Patient and/or medical decision maker expressed understanding of and agreed with the treatment plan, follow up instructions, and emergency department return precaution. All patient's and/or medical decision maker's questions were answered. Undiagnosed new problem with uncertain prognosis? @ -No Drug Therapy requiring intensive monitoring for toxicity (Heparin, Nitro, Insulin, Cardizem)? @ -No Were any procedures done? @ -No Diagnosis/symptom? @ -Opioid dependence, headache Acute, or Chronic, or Acute on Chronic? acute, acute on chronic Uncomplicated (without systemic symptoms) or Complicated (systemic symptoms)? @ uncomplicated Side effects of treatment? @ -No Exacerbation, Progression, or Severe Exacerbation? @ -No Poses a threat to life or bodily function? How? (Chest pain, [place], [place], pneumonia, PE, COPD, DKA, ARF, appy, cholecystitis, CVA, Diverticulitis, Homicidal, Suicidal, threat to staff... and all critical care pts) No, not at time of discharge (Fozia Rudd) - Lab Data Lab Results 08/03/24 08/03/24 08/03/24 Range/Units 02:34 02:34 03:15 WBC 7.32 (4.50-10.00) 10*3/uL RBC 4.45 (4.40-5.60) 10*6/uL Hgb 12.3 L (13.0-17.0) g/dL Hct 38.0 L (39.6-50.0) % MCV 85.4 (80.0-97.0) fL MCH 27.6 (27.0-32.0) pg MCHC 32.4 (32.0-37.0) g/dL Plt Count 196 (140-440) 10*3/uL MPV 10.6 (9.5-12.2) fL Immature Gran % (Auto) 0.7 % Neutrophils % 59.8 % Lymphocytes % 29.8 % Monocytes % 8.9 % Eosinophils % 0.3 % Basophils % 0.5 % Immature Gran # 0.05 H (0.00-0.04) 10*3/uL Neutrophils # 4.38 (1.80-7.70) 10*3/uL Lymphocytes # 2.18 (0.90-5.00) 10*3/uL Monocytes # 0.65 (0.20-1.00) 10*3/uL Eosinophils # 0.02 L (0.04-0.35) 10*3/uL Basophils # 0.04 (0.00-0.10) 10*3/uL Sodium 141 (137-145) mmol/L Potassium 4.1 (3.5-5.1) mmol/L Chloride 102 (98-107) mmol/L Carbon Dioxide 28 (22-30) mmol/L Anion Gap 11 mmol/L BUN 16 (9-20) mg/dL Creatinine 0.72 (0.66-1.25) mg/dL Est GFR (CKD-EPI)AfAm >90 (>60 ml/min/1.73 sqM) Est GFR (CKD-EPI)NonAf >90 (>60 ml/min/1.73 sqM) Glucose 133 H (74-99) mg/dL Calcium 9.0 (8.4-10.2) mg/dL Total Bilirubin 0.5 (0.2-1.3) mg/dL AST 33 (17-59) U/L ALT 37 (4-49) U/L Alkaline Phosphatase 73 (38-126) U/L Total Protein 6.4 (6.3-8.2) g/dL Albumin 3.9 (3.5-5.0) g/dL Urine Opiates Screen Detected H (NotDetected) Ur Oxycodone Screen Not Detected (NotDetected) Urine Methadone Screen Not Detected (NotDetected) Ur Barbiturates Screen Not Detected (NotDetected) U Tricyclic Antidepress Detected H (NotDetected) Ur Phencyclidine Scrn Not Detected (NotDetected) Ur Amphetamines Screen Not Detected (NotDetected) U Methamphetamines Scrn Not Detected (NotDetected) U Benzodiazepines Scrn Not Detected (NotDetected) Urine Cocaine Screen Not Detected (NotDetected) U Marijuana (THC) Screen Not Detected (NotDetected) - EKG Data EKG Comments: EKG taken at 2: 33 showing a sinus rhythm. Ventricular rate 70, WV interval 169, QRS duration 126, QT/QTc 413/447 (Nanette Campa) Disposition <Nanette Campa - Last Filed: 08/03/24 02:51> Is patient prescribed a controlled substance at d/c from ED?: No <Fozia Rudd - Last Filed: 08/03/24 06:36> Clinical Impression: Encounter for medication refill, Headache, Opioid dependence Disposition: HOME SELF-CARE Condition: Good Additional Instructions: Every disease is a spectrum and a small chance still exists that a serious condition could develop, for this reason, please monitor yourself closely for new, changing or worsening symptoms, symptoms that do not begin to improve over the course of the next 48 hours, severe headache like you have never had before, headache with strokelike symptoms such as numbness, weakness, changes in vision or slurred speech, fever, inability to tolerate/keep down fluids or your medications, inability to follow up with outpatient providers as instructed and should you experience these symptoms or should you have any further concerns for your wellbeing please return to the ED or call 911 immediately. Your pain can be treated with ibuprofen and acetaminophen. You can take up to 400-600 mg of ibuprofen (Advil, Motrin) 3 times daily (every 8 hours) but can also use lower doses if this relieves your pain. Some people prefer naproxen (Aleve, Naprosyn) which can be taken in doses of 500 mg up to twice a day. Do not take both of these medicines together, and do not combine either with ketorolac (Toradol), meloxicam (Mobic), or indomethacin (Tivorbex). Some people can develop stomach discomfort with higher doses of either ibuprofen or naproxen, if this develops decrease your dose or stop taking it. If you need to take this dose daily for more than a week, please schedule an appointment for re-evaluation with your PCP. Please take these medications with food. You can take up to 1000 mg of acetaminophen (Tylenol) every 6 hours. Be careful as this is included in some medicines like Nyquil, Burkett, Percocet, Vicodin, STANBACK, Goody's Powders, and Excedrin. You can also use lidocaine patches for topical pain. You can purchase 4% patches over the counter at most drug stores. These can be helpful for pain from your muscles or bones. PLEASE call your primary care physician as soon as possible to arrange / discuss plan for followup appointment. Appointment in the next 1-3 days is strongly enco uraged if possible. PLEASE let us know here before you leave if there is anything further we can do to be of any assistance. Take care and feel Better! Prescriptions: Cyclobenzaprine [Flexeril] 10 mg PO TID PRN 3 Days #10 tab PRN Reason: Muscle Spasm Lidocaine 5% Patch [Lidoderm 5% Patch] 1 patch TOPICAL DAILY PRN 3 Days #3 patch PRN Reason: Muscle Pain Referrals: Jeff Moon MD [Primary Care Provider] - 1-2 days
[2024-08-03 02:43] LABS: Basophils # (A) 0.04 10*3/uL (0.00-0.10); Basophils % (A) 0.5 %; Eosinophils # (A) 0.02 10*3/uL (0.04-0.35); Eosinophils % (A) 0.3 %; HGB 12.3 g/dL (13.0-17.0); Lymphocytes # (A) 2.18 10*3/uL (0.90-5.00); Lymphocytes % (A) 29.8 %; MCH 27.6 pg (27.0-32.0); MCHC 32.4 g/dL (32.0-37.0); MCV 85.4 fL (80.0-97.0); Mean Platelet Volume 10.6 fL (9.5-12.2); Monocytes # (A) 0.65 10*3/uL (0.20-1.00); Monocytes % (A) 8.9 %; Neutrophils # (A) 4.38 10*3/uL (1.80-7.70); Neutrophils % (A) 59.8 %; Platelet Count 196 10*3/uL (140-440); RBC 4.45 10*6/uL (4.40-5.60); RDW 13.1 % (11.5-14.5); WBC 7.32 10*3/uL (4.50-10.00)
[2024-08-03] MEDS: ACETAMINOPHEN TAB 325 MG TAB PO STA (02:46)
[2024-08-03] MEDS: SODIUM CHLORIDE 0.9% 1,000 ML IV ONE (02:47)
[2024-08-03] MEDS: diphenhydrAMINE 50 MG/ML 1 ML VIAL IVP STA (02:48)
[2024-08-03 02:54] LABS: ALT 37 U/L (4-49); AST 33 U/L (17-59); African American GFR (CKD) >90 (>60 ml/min/1.73 sqM); Albumin 3.9 g/dL (3.5-5.0); Alkaline Phosphatase 73 U/L (38-126); Anion Gap 11 mmol/L; Blood Urea Nitrogen 16 mg/dL (9-20); Carbon Dioxide 28 mmol/L (22-30); Chloride 102 mmol/L (98-107); Glucose 133 mg/dL (74-99); Non-African American GFR(CKD) >90 (>60 ml/min/1.73 sqM); Sodium 141 mmol/L (137-145); Total Bilirubin 0.5 mg/dL (0.2-1.3); Total Protein 6.4 g/dL (6.3-8.2)
[2024-08-03 03:20] LABS: Potassium 4.1 mmol/L (3.5-5.1)
[2024-08-03 03:43] LABS: Amphetamine Screen,Urine Not Detected (NotDetected); Barbiturate Screen,Urine Not Detected (NotDetected); Benzodiazepines Screen,Urine Not Detected (NotDetected); Cocaine Screen,Urine Not Detected (NotDetected); Methadone Screen, Urine Not Detected (NotDetected); Opiate Screen,Urine Detected (NotDetected); Oxycodone Screen, Urine Not Detected (NotDetected); Phencyclidine Screen,Urine Not Detected (NotDetected); Tricyclic Antidepressant,Urine Detected (NotDetected); Urn Cannabinoid Scrn Not Detected (NotDetected)
--- NOTE | 2024-08-03 04:39 | CT ---
EXAM: CT Head Without Intravenous Contrast CLINICAL HISTORY: ITS.REASON CT Reason: headache TECHNIQUE: Axial computed tomography images of the head/brain without intravenous contrast. CTDI is 49.2 mGy and DLP is 1188.1 mGy-cm. This CT exam was performed using one or more of the following dose reduction techniques: automated exposure control, adjustment of the mA and/or kV according to patient size, and/or use of iterative reconstruction technique. COMPARISON: No relevant prior studies available. FINDINGS: No acute intracranial hemorrhage. No midline shift or mass effect. The territorial francis-white matter differentiation is maintained throughout. Age-related cerebral volume loss. Periventricular and subcortical white matter hypoattenuation, consistent with chronic microangiopathy. The visualized orbits appear grossly unremarkable. The calvarium is intact. The visualized paranasal sinuses and mastoid air cells are grossly clear. IMPRESSION: No acute intracranial hemorrhage, midline shift, or mass effect.
[2024-08-03 06:04] VITALS: BP 154/78; PULSE 80; TEMP 98.1
[2024-08-03] MEDS: HYDROcodone/APAP 5-325MG 1 EACH TAB PO STA (06:07)
[2024-08-03] MEDS: CYCLOBENZAPRINE 5 MG TAB PO STA (06:07)
== END 2024-08-03 06:10 | disposition home or self-care (01) ==
LOC: EC 01:37
DX: R51.9 Headache, unspecified (principal); F11.20 Opioid dependence, uncomplicated; Z76.0 Encounter for issue of repeat prescription; F17.200 Nicotine dependence, unspecified, uncomplicated
CPT/HCPCS: 82075; 36415; 93005; 80053; 85025; 80306; 70450; 99285; 96374; J1200

== ENCOUNTER 2024-08-04 02:00 | Emergency (ER) | payer MEDICARE, OTHER ==
[2024-08-04 02:04] VITALS: BP 144/77; PULSE 88; RESP 18; TEMP 98.2
--- NOTE | 2024-08-04 02:25 | ED ---
Psych HPI - General Chief Complaint: Psychiatric Symptoms Stated Complaint: SI Time Seen by Provider: 08/04/24 02:24 Source: patient, family, RN notes reviewed, old records reviewed Mode of arrival: ambulatory - History of Present Illness Initial Comments: 64-year-old male presented to the ER for evaluation of suicidal ideation. Patient was seen in the ER last night for evaluation of headache. Patient did mention suicidal ideation and was evaluated by EPS. Patient was ultimately discharged home. Patient returns today for suicidal ideation with plan. He states he is going to take a knife to his neck. Patient reports he has been admitted to [facility] in the past. He denies any homicidal ideations, hallucinations, drug or alcohol use. Patient's father requesting refill on his Cypress prescription. Father reports when he takes his Cypress he does not feel this way but he is currently out of his prescription. Patient denying any current headache, dizziness, lightheadedness, chest pain, shortness of breath, abdominal pain or other complaints at this time. - Related Data Home Medications Medication Instructions Recorded Confirmed Simvastatin [Zocor] 40 mg PO DAILY@1600 09/22/15 04/24/24 HYDROcodone/APAP 5-325MG [Cypress 1 tab PO Q6HR PRN 06/01/18 04/24/24 5-325] DULoxetine HCL [Cymbalta] 60 mg PO DAILY 04/18/24 04/24/24 Finasteride [Proscar] 5 mg PO DAILY 04/18/24 04/24/24 Rosuvastatin [Crestor] 10 mg PO HS 04/18/24 04/24/24 Tamsulosin [Flomax] 0.8 mg PO DAILY 04/18/24 04/24/24 cloZAPine [Clozaril] 225 mg PO HS 04/18/24 04/24/24 clonazePAM [KlonoPIN] 1 mg PO DAILY PRN 04/18/24 04/24/24 Previous Rx's Medication Instructions Recorded metFORMIN HCL [Glucophage] 500 mg PO BID-W/MEALS 15 Days tab 12/02/14 Acetaminophen Tab [Tylenol] 650 mg PO Q4HR PRN tab 09/13/19 Melatonin 5 mg PO HS 30 Days tablet 09/13/19 Fluconazole [Diflucan] 150 mg PO DAILY #14 tab 04/10/24 Cephalexin [Keflex] 500 mg PO Q8HR #15 cap 04/24/24 Cyclobenzaprine [Flexeril] 10 mg PO TID PRN 3 Days #10 tab 08/03/24 Lidocaine 5% Patch [Lidoderm 5% 1 patch TOPICAL DAILY PRN 3 Days 08/03/24 Patch] #3 patch Allergies Allergy/AdvReac Type Severity Reaction Status Date / Time No Known Allergies Allergy Verified 08/04/24 02:03 Review of Systems ROS Statement: Those systems with pertinent positive or pertinent negative responses have been documented in the HPI. ROS Other: All systems not noted in ROS Statement are negative. Past Medical History Past Medical History: GERD/Reflux, Hyperlipidemia, Prostate Disorder History of Any Multi-Drug Resistant Organisms: None Reported Past Surgical History: Tonsillectomy Past Anesthesia/Blood Transfusion Reactions: No Reported Reaction Past Psychological History: Anxiety, Depression, Panic Disorder, Schizoaffective Disorder, Schizophrenia Smoking Status: Current every day smoker Past Alcohol Use History: Occasional Past Drug Use History: None Reported - Past Family History Mother Family Medical History: COPD, Hypertension Father Family Medical History: Cancer Additional Family Medical History / Comment(s): PROSTATE CA, HEART VALVE REPLACEMENT General Exam Limitations: no limitations General appearance: alert, in no apparent distress Neck exam: Present: normal inspection. Absent: tenderness, meningismus, lymphadenopathy Respiratory exam: Present: normal lung sounds bilaterally. Absent: respiratory distress, wheezes, rales, rhonchi, stridor Cardiovascular Exam: Present: regular rate, normal rhythm, normal heart sounds. Absent: systolic murmur, diastolic murmur, rubs, gallop, clicks GI/Abdominal exam: Present: soft, normal bowel sounds. Absent: distended, tenderness, guarding, rebound, rigid Neurological exam: Present: alert, oriented X3, CN II-XII intact Psychiatric exam: Present: suicidal ideation Skin exam: Present: warm, dry, intact, normal color. Absent: rash Course Vital Signs 08/04/24 02:01 Temperature 98.2 F Pulse Rate 88 Respiratory 18 Rate Blood Pressure 144/77 O2 Sat by Pulse 99 Oximetry - Reevaluation(s) Reevaluation #1: 08/04/24 03:36 Case discussed with EPS, Rocio ARGUETA, who evaluated patient. Patient will be discharged with safety plan in place Medical Decision Making - Medical Decision Making Was pt. sent in by a medical professional or institution (Dr., PA, HUMAN RESOURCES OPERATIONS DIRECTOR, urgent care, hospital, or fci...) When possible be specific @ -No Did you speak to anyone other than the patient for history (EMS, parent, family, police, friend...)? What history was obtained from this source @ -No Did you review nursing and triage notes (agree or disagree)? Why? @ -I reviewed and agree with nursing and triage notes Were old charts reviewed (outside hosp., previous admission, EMS record, old EKG, old radiological studies, urgent care reports/EKG's, fci records)? Report findings @ -ER visit reviewed from 08 03 24. Patient evaluated for headache and had negative workup including CT brain. Patient was evaluated by EPS given reported suicidal ideations and was ultimately discharged home. Cypress prescription was not refilled as patient has been taking them more than prescribed and is not due for refill.] Differential Diagnosis (chest pain, altered mental status, abdominal pain women, abdominal pain men, vaginal bleeding, weakness, fever, dyspnea, syncope, headache, dizziness, GI bleed, back pain, seizure, CVA, palpatations, mental health, musculoskeletal)? @ -Differential Mental Health:Depression, anxiety, bipolar, psychosis, schizop hrenia, borderline personality, situational depression, adjustment disorder, behavioral disorder, brain tumor, malingering, substance abuse, encephalopathy, medication reaction, dementia, hypothyroidism, degenerative neurologic disorder, lupus.... This is not meant to be all-inclusive list EKG interpreted by me (3pts min.). @ -None done X-rays interpreted by me (1pt min.). @ -None done CT interpreted by me (1pt min.). @ -None done U/S interpreted by me (1pt. min.). @ -None done What testing was considered but not performed or refused? (CT, X-rays, U/S, labs)? Why? @ -None What meds were considered but not given or refused? Why? @ -None Did you discuss the management of the patient with other professionals (professionals i.e. CASSIDY Herbert, HUMAN RESOURCES OPERATIONS DIRECTOR, lab, RT, psych nurse, social studies department chair, facility specialist, t eacher, air control/anti air warfare officer, manager rn case)? Give summary @ -Case discussed with Rocio LOJA, who advised on safety plan and discharge home. Was smoking cessation discussed for >3mins.? @ -No Was critical care preformed (if so, how long)? @ -No Were there social determinants of health that impacted care today? How? (Homelessness, low income, unemployed, alcoholism, drug addiction, transportation, low edu. Level, literacy, decrease access to med. care, senior care, rehab)? @ -No Was there de-escalation of care discussed even if they declined (Discuss DNR or withdrawal of care, Hospice)? DNR status @ -No What co-morbidities impacted this encounter? (DM, HTN, Smoking, COPD, CAD, Cancer, CVA, ARF, Chemo, Hep., AIDS, mental health diagnosis, sleep apnea, morbid obesity)? @ -None Was patient admitted / discharged? Hospital course, mention meds given and route, prescriptions, significant lab abnormalities, going to OR and other pertinent info. @ -Discharge. 64-year-old male presented to ER for evaluation of suicidal ideation. Vitals within acceptable limits. Patient medically cleared for EPS evaluation. Patient evaluated by Rocio ARGUETA who advised on safety plan and discharged home. Patient was provided Tylenol for reported headache. Cypress prescription will not be refilled as patient has been taking them more than prescribed and is not due for refill per 08 03 24 ER note. I advised him to follow-up with PCP for refill. Patient discharged stable condition with follow- up PCP. Patient verbally expressed understanding agree with care plan. Case discussed with ED attending of Dr. Landis. Undiagnosed new problem with uncertain prognosis? @ -No Drug Therapy requiring intensive monitoring for toxicity (Heparin, Nitro, Insulin, Cardizem)? @ -No Were any procedures done? @ -No Diagnosis/symptom? @ -Suicidal thoughts Acute, or Chronic, or Acute on Chronic? @ -Acute Uncomplicated (without systemic symptoms) or Complicated (systemic symptoms)? @ -Uncomplicated Side effects of treatment? @ -No Exacerbation, Progression, or Severe Exacerbation? @ -No Poses a threat to life or bodily function? How? (Chest pain, USA, VT, pneumonia, PE, COPD, DKA, ARF, appy, cholecystitis, CVA, Diverticulitis, Homicidal, Suicidal, threat to staff... and all critical care pts) @ -Low - Lab Data Lab Results 08/04/24 Range/Units 02:54 Urine Opiates Screen Detected H (NotDetected) Ur Oxycodone Screen Not Detected (NotDetected) Urine Methadone Screen Not Detected (NotDetected) Ur Barbiturates Screen Not Detected (NotDetected) U Tricyclic Antidepress Detected H (NotDetected) Ur Phencyclidine Scrn Not Detected (NotDetected) Ur Amphetamines Screen Not Detected (NotDetected) U Methamphetamines Scrn Not Detected (NotDetected) U Benzodiazepines Scrn Not Detected (NotDetected) Urine Cocaine Screen Not Detected (NotDetected) U Marijuana (THC) Screen Not Detected (NotDetected) Disposition Clinical Impression: Suicidal thoughts Disposition: HOME SELF-CARE Condition: Stable Additional Instructions: Follow-up with PCP and outpatient mental health services. Return to the ER for any new or worsening concerns Is patient prescribed a controlled substance at d/c from ED?: No Referrals: Jeff Moon MD [Primary Care Provider] - 1-2 days Forms: Outpatient Counseling, Outpatient Therapy List Time of Disposition: 03:31
[2024-08-04] MEDS: ACETAMINOPHEN TAB 325 MG TAB PO STA (03:38)
[2024-08-04 03:43] LABS: Amphetamine Screen,Urine Not Detected (NotDetected); Barbiturate Screen,Urine Not Detected (NotDetected); Benzodiazepines Screen,Urine Not Detected (NotDetected); Cocaine Screen,Urine Not Detected (NotDetected); Methadone Screen, Urine Not Detected (NotDetected); Opiate Screen,Urine Detected (NotDetected); Oxycodone Screen, Urine Not Detected (NotDetected); Phencyclidine Screen,Urine Not Detected (NotDetected); Tricyclic Antidepressant,Urine Detected (NotDetected); Urn Cannabinoid Scrn Not Detected (NotDetected)
== END 2024-08-04 03:49 | disposition home or self-care (01) ==
LOC: EC 02:00
DX: R45.851 Suicidal ideations (principal); F17.200 Nicotine dependence, unspecified, uncomplicated
CPT/HCPCS: 80306; 82075; 99285

== ENCOUNTER → 2024-08-17 | Outpatient (CLI) | payer MEDICARE, OTHER ==
[2024-08-17 15:56] LABS: Basophils # (A) 0.06 X 10*3/uL (0.00-0.10); Basophils % (A) 0.7 %; Eosinophils # (A) 0.01 X 10*3/uL (0.04-0.35); Eosinophils % (A) 0.1 %; HCT 41.9 % (39.6-50.0); HGB 13.2 g/dL (13.0-17.0); Lymphocytes # (A) 2.47 X 10*3/uL (0.90-5.00); Lymphocytes % (A) 29.3 %; MCH 27.3 pg (27.0-32.0); MCHC 31.5 g/dL (32.0-37.0); MCV 86.7 FL (80.0-97.0); Mean Platelet Volume 13.1 FL (9.5-12.2); Monocytes # (A) 0.77 X 10*3/uL (0.20-1.00); Monocytes % (A) 9.1 %; NRBC Per 100 WBC 0 X 10*3/uL (0.00-0.01); Neutrophils # (A) 5.07 X 10*3/uL (1.80-7.70); Neutrophils % (A) 60.2 %; Platelet Count 163 X 10*3/uL (140-440); RBC 4.83 X 10*6/uL (4.40-5.60); RDW 13.8 % (11.5-14.5); WBC 8.43 X 10*3/uL (4.50-10.00)
[2024-08-17 16:53] LABS: Chol/HDL Ratio 3.04 Ratio; Glucose 124 mg/dL (70-110); LDL Cholesterol,Calculated 67.5 mg/dL (0.0-131.0)
== END | disposition home or self-care (01) ==
LOC: LABWHC1 10:32
PROVIDERS: ATTEND Family Medicine
DX: Z51.81 Encounter for therapeutic drug level monitoring (principal); Z79.899 Other long term (current) drug therapy
CPT/HCPCS: 36415; 80061; 82947; 83036; 85025